=== PATIENT | female | born 1930 | race Caucasian/White ===

== ENCOUNTER 2016-10-23 23:32 | Inpatient (IN) | payer MEDICARE, OTHER ==
[~2016-10-23] VITALS: Ht 162.6 cm; Wt 80.2 kg
[~2016-10-23 23:32] MED LIST: BENICAR40 MG PO; CRESTOR20 MG PO; DOXYCYCLINE HY100 M2 PO; IPRAT-ALBUT 0.5-3 ML UPD; LANOXIN125 MCG PO; LUTEIN20 MG PO; MIRAPEX0.5 MG PO; MUCINEX DM ER1 EAC1 PO; NITROSTAT0.4 MG SL; NORVASC5 MG PO; PATIENT'S OWN MEDICATION PO; PINDOLOL5 MG PO; POTASSIUM CHLO10 ME1 PO; PROMETHAZINE W473 M1 PO; PROTONIX40 MG PO; RESTORIL15 MG PO; SYNTHROID150 MCG PO; TESSALON PERLE100 MG PO; TIKOSYN250 MCG PO; VANCOMYCIN 1 GM/1 G1 IV; XARELTO15 MG PO; ZOSYN 3.3753.375 G1 IV
[2016-10-24 01:40] LABS: BASOPHILS 0.1 % (0.0-2.0); EOSINOPHILS 0.6 % (0-7); HEMATOCRIT 44.9 % (36.0-48.0); HEMOGLOBIN 14.6 g/dL (12-16); IMMATURE GRANULOCYTES 0.4 % (0-5); LYMPHOCYTES 13.2 % (15-50); MCH 30.7 pg (26.0-34.0); MCHC 32.5 g/dL (31.0-37.0); MCV 94.3 fL (80.0-100.0); MEAN PLATELET VOLUME 11.7 fL (7.4-10.4); MONOCYTES 10.4 % (2-11); NEUTROPHILS 75.3 % (40-80); PLATELET COUNT 180 10x3/uL (130-400); RBC 4.76 10x6/uL (4.00-5.40); RDW 13.4 % (11.5-14.5); WBC 7.7 10x3/uL (4.8-10.8)
[2016-10-24 01:52] LABS: APPEARANCE CLEAR (CLEAR); BILIRUBIN NEGATIVE (NEGATIVE); COLOR YELLOW (YELLOW); GLUCOSE NEGATIVE (NEGATIVE); KETONE NEGATIVE (NEGATIVE); LEUKOCYTE ESTERASE NEGATIVE (NEGATIVE); NITRITE NEGATIVE (NEGATIVE); PROTEIN TRACE mg/dL (NEGATIVE); UROBILINOGEN NORMAL (NORMAL)
[2016-10-24 01:58] LABS: ALBUMIN 3.7 g/dL (3.4-5.0); ANION GAP 11.6 mmol/L (8-16); BILIRUBIN - TOTAL 0.34 mg/dL (0.2-1.3); CALCIUM 9.5 mg/dL (8.5-10.1); CARBON DIOXIDE 28.6 mmol/L (21.0-32.0); CREATININE - SERUM 1.1 mg/dL (0.6-1.3); POTASSIUM - SERUM 4.2 mmol/L (3.5-5.1); PROTEIN - SERUM 7.3 g/dL (6.4-8.2); THYROID STIMULATING HORMONE 0.33 uIU/mL (0.36-3.74)
[2016-10-24 02:00] LABS: BACTERIA FEW /hpf (NONE SEEN); EPITHELIAL CELLS OCC /hpf (0-5); MUCUS <1+ /lpf (NONE SEEN); RED CELLS - URINE OCC /hpf (0-5); WHITE CELLS - URINE 0-5 /hpf (0-5)
[2016-10-24 02:01] LABS: AMORPHOUS SEDIMENT <1+ /lpf (NONE SEEN); HYALINE CAST OCC /lpf (NONE SEEN)
[2016-10-24 04:09] VITALS: BP 186/58; BMI 31.8
[2016-10-24 04:15] VITALS: BP 156/58
[2016-10-24 08:11] VITALS: BP 147/52
[2016-10-24 10:47] VITALS: Ht 162.6 cm; Wt 80.2 kg
[2016-10-24 11:58] VITALS: BP 165/56
--- NOTE | 2016-10-24 14:04 | NUR ---
ALERT AND ORIENTED X4. ASSIST TO BEDSIDE COMMODE AND BACK TO BED. GAIT UNSTEADY. CARDIZEM INFUSING LT FA @ 10ML/HR ORDERED. SITE SECOND IV 22G RT FA FOR ANTIBIOTIC INFUSIONS. 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 CURRENTLY SINUS RHYTHM 68bpm ON TELEMETRY. HEART RHYTHM IN AND OUT OF SINUS AND A-FLUTTER. CONTINUE PLAN OF CARE. BED LOCKED AND LOW. CALL LIGHT IN REACH. TWO SIDERAILS UP. RECIEVES XARELTO. NO SCDs.
[2016-10-24 15:55] VITALS: BP 142/51
--- NOTE | 2016-10-24 18:56 | NUR ---
RESTING IN BED. ALERT AND ORIENTED X4. DOUGLAS. 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 SINUS RHYTHM 87bpm ON TELEMETRY. DENIES PAIN. O2 @ 2L NC. PREPARE SHIFT CHANGE REPORT. CONTINUE PLAN OF CARE AND SAFETY PRECAUTIONS.
--- NOTE | 2016-10-24 19:30 | NUR ---
LYING ON RT SIDE IN BED, AWAKE, ALERT, HEARING AIDS OUT AND CHARGING ON TSABLE. TELEMETRY IN PLACE SHOWING HR SR. HOB UP SR UP X2, C/L IN REACH, UP WITH MIN ASSIST. LANA WELL. RESP UNLAB, O2 @ 3L VIA NC. CARDIZEM GTT INFUSING W/O DIFF VIA PUMP AT 10CC/HR TO LEFT FA W/O R/S NOTED AT SITE. RT FA IV SITE W/O R/S NOTED. INCONT OF URINE AT TIMES, MICHELLE CARE AND LINEN CHANGE DONE PRN. CONTINUE TO MONITOR.
[2016-10-24 20:29] VITALS: BP 155/49
[2016-10-25 01:50] VITALS: BP 155/49
--- NOTE | 2016-10-25 03:47 | NUR ---
AWAKE, ALERT, DENIES NEEDS AT THIS TIME. HOB UP SR UP X2, C/L IN REACH, CONTINUE TO MONITOR. BOX ALARM REMAINS ON FOR SAFETY.
[2016-10-25 05:24] LABS: BASOPHILS 0.2 % (0.0-2.0); EOSINOPHILS 1.1 % (0-7); HEMATOCRIT 43.1 % (36.0-48.0); HEMOGLOBIN 13.4 g/dL (12-16); IMMATURE GRANULOCYTES 0.2 % (0-5); MCH 30.3 pg (26.0-34.0); MCHC 31.1 g/dL (31.0-37.0); MCV 97.5 fL (80.0-100.0); MEAN PLATELET VOLUME 11.6 fL (7.4-10.4); MONOCYTES 16.8 % (2-11); NEUTROPHILS 54.7 % (40-80); RBC 4.42 10x6/uL (4.00-5.40); RDW 13.5 % (11.5-14.5); WBC 4.5 10x3/uL (4.8-10.8)
[2016-10-25 05:35] LABS: PLATELET COUNT 137 10x3/uL (130-400)
[2016-10-25 05:40] VITALS: BP 152/76
[2016-10-25 05:54] LABS: ALBUMIN 2.9 g/dL (3.4-5.0); ANION GAP 10.4 mmol/L (8-16); BILIRUBIN - TOTAL 0.26 mg/dL (0.2-1.3); CALCIUM 8.8 mg/dL (8.5-10.1); CARBON DIOXIDE 26.8 mmol/L (21.0-32.0); CREATININE - SERUM 1.1 mg/dL (0.6-1.3); MAGNESIUM - SERUM 2.6 mg/dL (1.8-2.4); PHOSPHOROUS 3.7 mg/dL (2.5-4.9); POTASSIUM - SERUM 4.2 mmol/L (3.5-5.1); PROTEIN - SERUM 6.2 g/dL (6.4-8.2); T4 THYROXIN - FREE 1.29 ng/dL (0.76-1.46); THYROID STIMULATING HORMONE 0.21 uIU/mL (0.36-3.74)
[2016-10-25 07:47] VITALS: BP 150/42
[2016-10-25 11:45] VITALS: BP 141/46
--- NOTE | 2016-10-25 14:50 | NUR ---
PT ASSESSMENT COMPLETED PT LAYING ON BED ORDER RECIVED TO DC CARDIZEM DRIP AND PT READING CAFIB ON TELEMETRY NO DISTRESS OBSERVED CALL LIGHT IN REACHS RX2 BED LOW AND LOCKED PT DAUGHTER HAS ONE IMPLANT WITH HER AND ANOTHER INPLANT WAS AT PT BEDSIDE UNABLE TO BE FOUND PT AND PT DAUGHTER INFORMED AND VERBALIZED UNDERSTANDING
[2016-10-25 15:47] VITALS: BP 152/81
--- NOTE | 2016-10-25 17:15 | NUR ---
HEARING AIDE DEVICE FOUND BY PT FAMILY GARRICK DAUGHTER
--- NOTE | 2016-10-25 19:00 | NUR ---
RECEIVED REPORT AND ASSUMED PT CARE AT THIS TIME. ASSISTED UP TO BR WITH 1 PERSON ASSIST. PT GAIT UNSTEADY. USES BSC, HAS LARGE LOOSE STOOL AND URINATES. BACK TO BED. BOX ALARM PLACED ON PT FOR SAFETY. 02 3LPM NC, DENIES ANY SOB/DYSPNEA. LEFT WRIST SL'ED. RT WRIST WITH NS @ KVO. NO NEEDS VOICED. CALL LIGHT WITHIN REACH. WILL CONT TO MONITOR.
[2016-10-25 20:00] VITALS: BP 158/54
--- NOTE | 2016-10-25 20:30 | NUR ---
INITIAL ASSESSMENT COMPLETED, VSS, AFEBRILE. NO NEEDS VOICED. CALL LIGHT WITHIN PLACE. WILL MONITOR.
--- NOTE | 2016-10-25 22:15 | NUR ---
PT RESTING WELL WITHOUT C/O NOTED.
[2016-10-26] VITALS: BP 131/39
--- NOTE | 2016-10-26 00:30 | NUR ---
ASSESSMENT UNCHANGED. NO NEEDS VOICED. WILL MONITOR.
[2016-10-26 04:00] VITALS: BP 132/66
[2016-10-26 05:10] LABS: BASOPHILS 0.2 % (0.0-2.0); EOSINOPHILS 1.7 % (0-7); HEMATOCRIT 43.1 % (36.0-48.0); IMMATURE GRANULOCYTES 0.2 % (0-5); MCH 30.8 pg (26.0-34.0); MCHC 32.5 g/dL (31.0-37.0); MEAN PLATELET VOLUME 11.6 fL (7.4-10.4); NEUTROPHILS 49.9 % (40-80); PLATELET COUNT 131 10x3/uL (130-400); RBC 4.55 10x6/uL (4.00-5.40); RDW 13.3 % (11.5-14.5); WBC 4.1 10x3/uL (4.8-10.8)
[2016-10-26 05:11] LABS: MCV 94.7 fL (80.0-100.0)
--- NOTE | 2016-10-26 05:13 | NUR ---
PT RESTING WELL WITHOUT C/O OR DISTRESS NOTED.
[2016-10-26 05:39] LABS: ALBUMIN 3.2 g/dL (3.4-5.0); ANION GAP 11.1 mmol/L (8-16); BILIRUBIN - TOTAL 0.17 mg/dL (0.2-1.3); CALCIUM 8.8 mg/dL (8.5-10.1); CARBON DIOXIDE 29.1 mmol/L (21.0-32.0); CREATININE - SERUM 0.9 mg/dL (0.6-1.3); PHOSPHOROUS 3.9 mg/dL (2.5-4.9); POTASSIUM - SERUM 4.2 mmol/L (3.5-5.1); PROTEIN - SERUM 6.1 g/dL (6.4-8.2)
[2016-10-26 05:41] LABS: MAGNESIUM - SERUM 1.9 mg/dL (1.8-2.4)
[2016-10-26 07:00] VITALS: BP 146/53
[2016-10-26 12:02] VITALS: BP 111/65
--- NOTE | 2016-10-26 14:54 | NUR ---
PT LAYING IN BED NO DISTRESS OBSERVED DAUGHTER ARRIVED TO VISIT WITH PT AND DAUGHTER INFORMED OF ISOLATION PERCAUTIONS DUE TO FLU TEST COMMING BACK POSITIVE PT PLACED ON DROPLET ISOLATION BED LOW AND LOCKED CALL LIGHT IN REACH SRX2 WILL MONITOR RESPERATIONS EVEN AND UNLABORED WILL MONITOR
--- NOTE | 2016-10-26 15:08 | NUR ---
Patient Name: RUSS NOGUEIRA Admission Status: ER Accout number: [id number] Admission Date: 10-24-2016 : 1930 Admission Diagnosis: Attending: BARRETT Current LOS: 2 Anticipated DC Date: Planned Disposition: Home with Home Health Primary Insurance: MEDICARE A & B PLANNED EXTERNAL PROVIDER: TO BE DECIDED BY PT/FAMILY Discharge Planning Comments: * Is the patient Alert and Oriented? Yes 0 * How many steps to enter\exit or inside your home? 3 NO RAIL 0 * PCP DAR. GUZMÁN 0 * Pharmacy [facility] 0 * Preadmission Environment Home Alone 0 * ADLs Partial Dependent 0 * Partial ADLs (Assistance needed) Medication Management 0 * Equipment Bedside Commode Cane Nebulizer Oxygen Shower Chair Walker 0 * Other Equipment UNKNOWN MEDICAL EQUIPMENT PROVIDER 0 * List name and contact numbers for known caregivers / representatives who currently or will assist patient after discharge: HAROON ABRAHAM, DTR, 0 * Community resources currently utilized None 0 * Please name any agencies selected above. NONE 0 * Additional services required to return to the preadmission environment? No 0 * Can the patient safely return to the preadmission environment? Yes 0 * Has this patient been hospitalized within the prior 30 days at any hospital? No 0 CM MET WITH PT IN ROOM TO DISCUSS DISCHARGE PLANNING AND NEEDS. PT REPORTS LIVING AT HOME INDEPENDENTLY WITH ASSISTANCE OF HER ADULT DAUGHTERS WHO ASSIST WITH ANY NEEDS AND MEDICATION MANAGEMENT. PT REPORTS HAVING ALL NEEDED MEDICAL EQUIPMENT AT HOME AND NO OUTSIDE SERVICES ASSISTING IN THE HOME. CM DISCUSSED AVAILABILITY OF HOME HEALTH, REHAB SERVICES AND MEDICAL EQUIPMENT. PT REPORTS SHE HAD HOME HEALTH WITH [facility] IN THE PAST AND FEELS SHE MAY NEED HOME HEALTH FOR DISCHARGE HOME AGAIN, REPORTS HER DAUGHTER WILL PICK HER UP FOR DISCHARGE HOME. CM LEFT CHOICE FORM WITH HOME HEALTH INFORMATION FOR PT AND FAMILY CONSIDERATION OF HOME HEALTH SERVICES. CM LEFT CM CONTACT INFORMATION IN ROOM FOR FAMILY. PT PLANS TO DISCHARGE HOME, WOULD LIKE HOME HEALTH AT DISCHARGE. CM TO ARRANGE HOME HEALTH IF PHYSICIAN AGREES AND PROVIDES ORDER WELL PT/FAMILY CHOICE OF PROVIDER. Machine Lead Burner: Siva Linton
[2016-10-26 15:27] VITALS: BP 126/54
[2016-10-26 20:00] VITALS: BP 132/51
[2016-10-27] VITALS: BP 121/49
--- NOTE | 2016-10-27 02:21 | NUR ---
RECIEVED PATIENT AND REPORT , PATIENT ALERT AND ORIENTED, NO ACUTE DISTRESS NOTED, ASSESSMENT DONE, SEE FLOW SHEET, CALL LIGHT AND WATER IN REACH, SIDERAILS UP X 2, BED LOCKED, WILL CONTINUE TO MONITOR.
[2016-10-27 04:00] VITALS: BP 148/50
[2016-10-27 04:48] LABS: BASOPHILS 0.4 % (0.0-2.0); EOSINOPHILS 0 % (0-7); HEMATOCRIT 45.1 % (36.0-48.0); HEMOGLOBIN 14.9 g/dL (12-16); IMMATURE GRANULOCYTES 0.4 % (0-5); LYMPHOCYTES 19.1 % (15-50); MCH 30.7 pg (26.0-34.0); MEAN PLATELET VOLUME 11.5 fL (7.4-10.4); NEUTROPHILS 76.1 % (40-80); PLATELET COUNT 147 10x3/uL (130-400); RBC 4.85 10x6/uL (4.00-5.40); RDW 12.8 % (11.5-14.5)
[2016-10-27 04:53] LABS: WBC 2.8 10x3/uL (4.8-10.8)
[2016-10-27 05:04] LABS: ALBUMIN 3.2 g/dL (3.4-5.0); ANION GAP 11.3 mmol/L (8-16); BILIRUBIN - TOTAL 0.25 mg/dL (0.2-1.3); CALCIUM 9.4 mg/dL (8.5-10.1); CARBON DIOXIDE 28.2 mmol/L (21.0-32.0); MAGNESIUM - SERUM 2.1 mg/dL (1.8-2.4); PHOSPHOROUS 4.2 mg/dL (2.5-4.9); POTASSIUM - SERUM 4.5 mmol/L (3.5-5.1)
[2016-10-27 09:09] VITALS: BP 130/49
--- NOTE | 2016-10-27 10:29 | NUR ---
Nutrition follow-up: Pt is now in isolation for +flu A and C.Diff Diet: low sodium with very poor po intake at this time. Labs reviewed Wt: 178# RDN will change diet to regular as tolerated and add Ensure with meals to encourage increased po intake. RDN following.
--- NOTE | 2016-10-27 11:36 | NUR ---
PT UP WITH PHYSICAL THERAPY AND AMBULATED APPX 100FT WITH MINIMAL ASSISTANCE PT BACK IN ROOM AND LAYING IN BED PT ON DROPLET ISO FOR FLU AND PPE FOLLOWED. RESPERATIONS EVEN AND UNLABORED WITH NO DISTRESSCALL LIGHT IN REACH SRX2 BED LOW AND LOCKED WILL MONITOR
[2016-10-27 12:38] VITALS: BP 141/49
--- NOTE | 2016-10-27 12:59 | NUR ---
PT LAYING IN BED NO DISTRESS OBSERVED CALL LIGHT IN REACH SRX2 BED LOW AND LOCKED NO DISTRESS OBSERVED RESPERATIONS EVEN AND UNLABORED IVP SALINE LOCKED WILL MONITOR
[2016-10-27 15:45] VITALS: BP 144/55
[2016-10-27 20:30] VITALS: BP 152/68
[2016-10-28] VITALS: BP 124/58
--- NOTE | 2016-10-28 01:27 | NUR ---
PT LYING IN BED, EYES CLOSED, EASILY ROUSABLE TO GENTLE TOUCH TO HER RIGHT ARM. PT DENIES ANY ACUTE NEEDS. CONTINUE TO MONITOR CLOSELY. BED LOW, CALL LIGHT IN REACH, SIDE RAILS X 2, HOB 20 DEGREES.
--- NOTE | 2016-10-28 05:44 | NUR ---
PT UP TO BEDSIDE COMMODE, AND PULLED HER IV OUT OF HER RIGHT FOREARM. PT DOES HAVE AN IV IN HER LEFT FOREARM AT THIS TIME. WILL WATCH THAT ONE CAUTIOUSLY. 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 I HAVE EXPLAINED THAT SHE MUST CALL FOR ASSISTANCE, HOWEVER PT REFUSES TO DO SO, STATING THAT SHE IS ABLE TO DO IT ON HER OWN AND DOES NOT WANT TO CALL FOR HELP. I INSISTED THAT SHE DOES. PT DENIES ANY NEEDS AT THIS TIME. CONTINUE TO MONITOR CLOSELY. BED LOW, CALL LIGHT IN REACH, SIDE RAILS X 2, HOB 10 DEGREES.
[2016-10-28 06:29] VITALS: BP 138/46
--- NOTE | 2016-10-28 07:30 | NUR ---
LAYING IN BED WAITING ON BREAKFAST. IS NOT WEARING HEARING AID. IS DEAF WITH OUT IT. SHOEMAKER X4.
[2016-10-28 08:32] VITALS: BP 148/69
--- NOTE | 2016-10-28 12:12 | NUR ---
SITTING UP IN BED EATING LUNCH. DENIES NEEDS OR PAIN. HAS NON PRODUCTIVE COUGH. ON RA. USES BSC IN ROOM. ENCOURAGED PT TO USE CALL LIGHT AND CALL FOR HELP.
[2016-10-28 12:43] VITALS: BP 167/56
[2016-10-28 16:18] VITALS: BP 149/51
--- NOTE | 2016-10-28 16:45 | NUR ---
SLIGHT CONFUSION NOTED. REMAINS PLEASANT AND COOPERATIVE.
[2016-10-28 20:15] VITALS: BP 145/49
--- NOTE | 2016-10-28 22:16 | NUR ---
PT AWAKE, ALERT, ORIENTED, DENIES ANY NEEDS. CONTINUE TO MONITOR CLOSELY. BED LOW, CALL LIGHT IN REACH, SIDE RAILS X 2, HOB 10 DEGREES.
[2016-10-29 00:34] VITALS: BP 172/59
[2016-10-29 04:26] VITALS: BP 174/62
--- NOTE | 2016-10-29 05:08 | NUR ---
PT LYING IN BED, EYES CLOSED, RESPIRATIONS EVEN AND UNLABORED. PT UP TO BEDSIDE COMMODE THIS SHIFT. PT EASILY ROUSABLE TO VERBAL STIMULI. CONTINUE TO MONITOR CLOSELY. BED LOW, CALL LIGHT IN REACH, SIDE RAILS X 2, HOB FLAT.
[2016-10-29 06:55] LABS: BASOPHILS 0.4 % (0.0-2.0); EOSINOPHILS 0 % (0-7); HEMATOCRIT 44.2 % (36.0-48.0); HEMOGLOBIN 14.3 g/dL (12-16); IMMATURE GRANULOCYTES 0.5 % (0-5); LYMPHOCYTES 15.8 % (15-50); MCH 30.4 pg (26.0-34.0); MCHC 32.4 g/dL (31.0-37.0); MCV 93.8 fL (80.0-100.0); MEAN PLATELET VOLUME 11.9 fL (7.4-10.4); MONOCYTES 4.8 % (2-11); NEUTROPHILS 78.5 % (40-80); PLATELET COUNT 156 10x3/uL (130-400); RBC 4.71 10x6/uL (4.00-5.40); RDW 13.1 % (11.5-14.5); WBC 8.2 10x3/uL (4.8-10.8)
[2016-10-29 07:03] LABS: ANION GAP 12.8 mmol/L (8-16); CALCIUM 9.5 mg/dL (8.5-10.1); POTASSIUM - SERUM 4.8 mmol/L (3.5-5.1)
--- NOTE | 2016-10-29 07:26 | NUR ---
AM ROUNDING MADE, PATIENT APPEARS TO BE SLEEPING, RESP ARE EVEN AND NON LABORED. ON HEART MONITOR SHOWING SB, HR 56. ON 2L PER NC. IN DROPLET ISOLATION. WILL CONTINUE TO MONITOR.
[2016-10-29 08:33] VITALS: BP 189/70
[2016-10-29 12:26] VITALS: BP 171/71
--- NOTE | 2016-10-29 13:23 | NUR ---
1317-DRESSING TO RIGHT CALF CHANGED. WOUND IS STAGE 2 WITH MEASUREMENTS OF 4 CM X1 XCM X 0.4 CM. WOUND BED IS DRY, WITH YELLOW FAT GLOBS. NO S/S OF INFECTION. DRY 2 X 2 AND WHITE MEPILEX PLACED OVER IT. DATED.
[2016-10-29 15:46] VITALS: BP 175/62
--- NOTE | 2016-10-29 17:41 | NUR ---
DENIES NEEDS AT PRESENT TIME. AMBULATING INTO RESTROOM. WILL COTNINUE TO MONITOR.
[2016-10-29 20:00] VITALS: BP 182/62
--- NOTE | 2016-10-30 01:48 | NUR ---
NURSE ROUNDS 22:00 - PT AWAKE, ALERT, ORIENTED, ASKED ME TO PLACE HER COCHLEAR IMPLANT ON HER BEDSIDE TABLE. I PLACED THE BATTERY IN HER SHIRRING TENDER. PT DENIED ANY NEEDS, IN NO ACUTE DISTRESS. CONTINUE TO MONITOR CLOSELY. BED LOW, CALL LIGHT IN REACH, SIDE RAILS X 2, HOB FLAT.
[2016-10-30 03:49] VITALS: BP 176/67
--- NOTE | 2016-10-30 05:23 | NUR ---
PT LYING IN BED, EYES CLOSED, RESPIRATIONS EVEN AND UNLABORED. PT EASILY ROUSABLE TO VERBAL STIMULI. CONTINUE TO MONITOR CLOSELY.
[2016-10-30 05:29] LABS: ANION GAP 9.9 mmol/L (8-16); CARBON DIOXIDE 30.8 mmol/L (21.0-32.0); POTASSIUM - SERUM 4.7 mmol/L (3.5-5.1)
[2016-10-30 05:31] LABS: BASOPHILS 0.1 % (0.0-2.0); EOSINOPHILS 0 % (0-7); HEMATOCRIT 45.1 % (36.0-48.0); HEMOGLOBIN 14.5 g/dL (12-16); IMMATURE GRANULOCYTES 0.5 % (0-5); LYMPHOCYTES 15.7 % (15-50); MCH 30.3 pg (26.0-34.0); MCHC 32.2 g/dL (31.0-37.0); MCV 94.4 fL (80.0-100.0); MEAN PLATELET VOLUME 12.2 fL (7.4-10.4); MONOCYTES 5.7 % (2-11); PLATELET COUNT 170 10x3/uL (130-400); RBC 4.78 10x6/uL (4.00-5.40); RDW 13.1 % (11.5-14.5); WBC 8.5 10x3/uL (4.8-10.8)
[2016-10-30] MEDS ORDERED: XARELTO15 MG PO (06:55)
[2016-10-30] MEDS ORDERED: ZOLOFT50 MG PO (06:55)
[2016-10-30] MEDS ORDERED: HCTZ25 MG PO (06:56)
[2016-10-30] MEDS ORDERED: STERAPRED DS 1010 MG PO (06:56)
--- NOTE | 2016-10-30 07:24 | NUR ---
PT ASSESSMENT COMPLETED NO DISTRESS OBSERVED PT TO BE DISCHARGED HOME TODAY PER DR GUZMÁN. RESPERATIONS EVEN AND UNLABORED CALL LIGHT IN REACH SRX2 BED LOW AND LOCKED WILL MONITOR
[2016-10-30 08:25] VITALS: BP 149/40
--- NOTE | 2016-10-30 10:21 | NUR ---
Patient Name: RUSS NOGUEIRA Encounter No: [id number] : 1930 Primary Insurance: MEDICARE A & B Anticipated DC Date: 10-30-2016 Planned Disposition: Home with Home Health External Planned Provider: [facility] DCP follow-up note: CM RECEIVED DISCHARGE AND HOME HEALTH ORDER. CM MET WITH PT IN ROOM TO DISCUSS DISCHARGE NEEDS AND PLANNING. CM DISCUSSED AVAILABILITY OF HOME HEALTH, REHAB SERVICES AND MEDICAL EQUIPMENT. PT REPORTS SHE IS GOING HOME WITH HOME HEALTH TODAY. DAUGHTER TO TRANSPORT HOME AT DISCHARGE TODAY. IMPORTANT MESSAGE FROM MEDICARE PROVIDED AND EXPLAINED. PT CHOSE [facility] SHE HAS USED THEM IN THE PAST WITH GOOD RESULT. CM CALLED [facility], , PROVIDED REFERRAL TO [facility] WHO WILL SCHEDULE HOME [facility]ATLH FOLLOW UP AND ADMISSION. CM FAXED REFERRAL TO [facility] AT [phone]. PT NOTIFIED WHO DENIED FURTHER DISCHARGE NEEDS. Siva Linton, CASE MANAGEMENT
[2016-10-30 11:37] VITALS: BP 180/63
--- NOTE | 2016-10-30 12:05 | NUR ---
STUDENT DC'D IVP AND ASSITED PT IN DRESSING AND PROVIED WHEELCHAIR AND ESCORTED PT OFF UNIT TO [facility]
== END 2016-10-30 12:05 | disposition home health service (06) | DRG 194 ==
LOC: D.ER 23:32 → D.M2 10-24 00:33
PROVIDERS: Family Medicine; Nurse Practitioner Acute Care; ADMIT Family Medicine
DX: J10.1 Influenza due to other identified influenza virus with other respiratory manifestations (principal); I48.92 Unspecified atrial flutter; E03.9 Hypothyroidism, unspecified; I10 Essential (primary) hypertension; J44.9 Chronic obstructive pulmonary disease, unspecified; I48.2 Chronic atrial fibrillation; Z87.891 Personal history of nicotine dependence

== ENCOUNTER 2016-11-16 12:07 | Emergency (ER) | payer MEDICARE, OTHER ==
[2016-10-24 10:47] VITALS: BMI 31.7
[~2016-11-16 12:07] MED LIST changes: +HCTZ25 MG PO; +STERAPRED DS 1010 MG PO; +ZOLOFT50 MG PO
[2016-11-16 14:05] LABS: BASOPHILS 0.2 % (0.0-2.0); EOSINOPHILS 4.1 % (0-7); HEMATOCRIT 44.2 % (36.0-48.0); HEMOGLOBIN 13.8 g/dL (12-16); IMMATURE GRANULOCYTES 0.2 % (0-5); LYMPHOCYTES 25.2 % (15-50); MCH 30.2 pg (26.0-34.0); MCHC 31.2 g/dL (31.0-37.0); MCV 96.7 fL (80.0-100.0); MEAN PLATELET VOLUME 10.7 fL (7.4-10.4); MONOCYTES 7.8 % (2-11); NEUTROPHILS 62.5 % (40-80); RBC 4.57 10x6/uL (4.00-5.40); RDW 14.4 % (11.5-14.5); WBC 5.1 10x3/uL (4.8-10.8)
[2016-11-16 14:08] LABS: PLATELET COUNT 109 10x3/uL (130-400)
[2016-11-16 14:17] LABS: APTT 30.2 SECONDS (22.8-39.4); INR 1.14 (0.85-1.17); PROTIME 14.5 SECONDS (11.6-15.0)
[2016-11-16 14:30] LABS: ALBUMIN 3.3 g/dL (3.4-5.0); BILIRUBIN - TOTAL 0.48 mg/dL (0.2-1.3); CALCIUM 8.9 mg/dL (8.5-10.1); CARBON DIOXIDE 23.7 mmol/L (21.0-32.0); POTASSIUM - SERUM 4.7 mmol/L (3.5-5.1); PROTEIN - SERUM 6.1 g/dL (6.4-8.2)
== END 2016-11-16 16:19 | disposition home or self-care (01) ==
LOC: D.ER 12:07
PROVIDERS: Family Medicine
DX: S80.02XA Contusion of left knee, initial encounter (principal); W19.XXXA Unspecified fall, initial encounter; Y93.89 Activity, other specified; Y92.89 Other specified places as the place of occurrence of the external cause; S50.12XA Contusion of left forearm, initial encounter; M54.5 Low back pain; M54.6 Pain in thoracic spine; S22.039A Unspecified fracture of third thoracic vertebra, initial encounter for closed fracture; I25.10 Atherosclerotic heart disease of native coronary artery without angina pectoris; I10 Essential (primary) hypertension

== ENCOUNTER 2017-06-23 14:06 | Inpatient (IN) | payer MEDICARE, OTHER ==
[~2017-06-23] VITALS: Ht 162.6 cm; Wt 79.4 kg
[2017-06-23 16:48] LABS: BASOPHILS 0.2 % (0-2); EOSINOPHILS 0.6 % (0-7); HEMATOCRIT 40.7 % (36.0-48.0); HEMOGLOBIN 13.5 g/dL (12-16); IMMATURE GRANULOCYTES 0.7 % (0-5); LYMPHOCYTES 11.6 % (15-50); MCH 31.1 pg (26.0-34.0); MCHC 33.2 g/dL (31.0-37.0); MCV 93.8 fL (80.0-100.0); MEAN PLATELET VOLUME 10.9 fL (7.4-10.4); MONOCYTES 8.7 % (2-11); NEUTROPHILS 78.2 % (40-80); RBC 4.34 10x6/uL (4.00-5.40); RDW 14.4 % (11.5-14.5); WBC 12.6 10x3/uL (4.8-10.8)
[2017-06-23 16:50] LABS: PLATELET COUNT 240 10x3/uL (130-400)
[2017-06-23 17:04] LABS: ALBUMIN 3.2 g/dL (3.4-5.0); ANION GAP 17.6 mmol/L (8-16); BILIRUBIN - TOTAL 0.23 mg/dL (0.2-1.3); CALCIUM 9.8 mg/dL (8.5-10.1); CARBON DIOXIDE 23.7 mmol/L (21.0-32.0); CREATININE - SERUM 3.3 mg/dL (0.6-1.3); POTASSIUM - SERUM 4.3 mmol/L (3.5-5.1); PROTEIN - SERUM 7.5 g/dL (6.4-8.2)
--- NOTE | 2017-06-23 19:06 | NUR ---
REC'D PT FROM ER. NO VISIBLE SIGNS OF DISTRESS. DAUGHTER AT BEDSIDE. BED IN LOWEST POSITION AND CALL LIGHT WITHIN REACH.
--- NOTE | 2017-06-23 19:49 | NUR ---
PATIENT RESTING IN BED WITH DAUGHTER AT BEDSIDE AND NO VISIBLE SIGNS OF DISTRESS. BROUGHT PT WATER PER REQUEST. PATIENT DENIES OTHER NEEDS AT THIS TIME. BED IN LOWEST POSITION AND CALL LIGHT WITHIN REACH. ENCOURAGED THE PT TO CALL IF SHE HAS NEEDS.
--- NOTE | 2017-06-23 20:06 | NUR ---
PT REQUESTED BE CONTACTED IN REGARDS TO PT'S MIRAPEX AND RESTORIL. PT DOES NOT KNOW THE NAMES AND DOSES OF HER OTHER MEDS AND STATED HER "OTHER DAUGHTER WILL BRING THEM IN THE MORNING"
--- NOTE | 2017-06-23 20:16 | NUR ---
SPOKE WITH DR. MURILLO IN REGARDS TO PT'S MEDS. DR. MURILLO SAID TO GO AHEAD WITH THE MIRAPEX AND RESTORIL. DR. MURILLO ALSO STATED TO MAKE SURE DR. RHODES IS CONTACTED IN THE AM IF HE WAS NOT CONTACTED BY SANDRA CARVALHO.
[2017-06-24] VITALS: BP 103/41; BP 109/51
[2017-06-24 01:59] VITALS: BP 107/44; BMI 30.1
[2017-06-24 07:07] LABS: BASOPHILS 0.2 % (0-2); EOSINOPHILS 2.2 % (0-7); HEMATOCRIT 37.4 % (36.0-48.0); HEMOGLOBIN 12.5 g/dL (12-16); LYMPHOCYTES 18.8 % (15-50); MCH 31.1 pg (26.0-34.0); MCHC 33.4 g/dL (31.0-37.0); MEAN PLATELET VOLUME 10.9 fL (7.4-10.4); MONOCYTES 10.7 % (2-11); NEUTROPHILS 67.1 % (40-80); PLATELET COUNT 218 10x3/uL (130-400); RBC 4.02 10x6/uL (4.00-5.40); RDW 14.5 % (11.5-14.5); WBC 9.2 10x3/uL (4.8-10.8)
[2017-06-24 07:42] LABS: ANION GAP 17.7 mmol/L (8-16); CALCIUM 9.5 mg/dL (8.5-10.1); POTASSIUM - SERUM 4.7 mmol/L (3.5-5.1)
--- NOTE | 2017-06-24 07:50 | NUR ---
AM ROUNDS - PT IS IN BED AND AWAKE AT THIS TIME. YELLOW BAND ON. 2L O2 VIA NC. LEFT FA, NS AT 100CC/HR. PT HASCOCHLEAR IMPLANTS TO BOTH EARS. PT IS UP WITH ASSIST. BED AT LOWEST POSITION. CALL BRITO IN USE/REACH. SIDE RAILS UP X2. NO NEEDS AT THIS TIME. WILL CONTINUE TO MONITOR.
[2017-06-24 09:02] VITALS: BP 129/30
--- NOTE | 2017-06-24 11:39 | NUR ---
PT IN BED AND APPEARS TO BE SLEEPING WITH EQUAL AND NON LABORED BREATHING. WILL CONTINUE TO MONIOTR
[2017-06-24 12:19] VITALS: BP 107/30
[2017-06-24 16:42] VITALS: BP 110/64
--- NOTE | 2017-06-24 19:45 | NUR ---
PT RESTING IN BED WITH ISIAH TEJADA AT BEDSIDE. BED IN LOWEST POSITION, CALL LIGHT WITHIN REACH, AND BED ALARM ON. ENCOURAGED THE PT TO CALL IF SHE HAS NEEDS.
[2017-06-24 20:00] VITALS: BP 108/28
[2017-06-24 21:31] LABS: APPEARANCE HAZY (CLEAR); BILIRUBIN NEGATIVE (NEGATIVE); COLOR YELLOW (YELLOW); GLUCOSE NEGATIVE (NEGATIVE); KETONE NEGATIVE (NEGATIVE); NITRITE NEGATIVE (NEGATIVE); PROTEIN NEGATIVE (NEGATIVE); UROBILINOGEN NORMAL (NORMAL)
--- NOTE | 2017-06-24 23:30 | NUR ---
NOTIFIED BY ISIAH LAM THAT THE PT "FEELS LIKE HER LEG IS WET". UPON ENTERING THE ROOM THE PATIENT'S SHEETS AND BLANKETS WERE SOILED. THE PT HAS APROX 2CM X 2CM OPENING ON THE TOP OF HER LEFT KNEE WITH A MODERATE AMOUNT OF BLOODY, PURULENT DRAINAGE. I DRESSED THE LEFT KNEE WITH 4X4'S AND AN ABD PAD TO ABSORB THE DRAINAGE. WILL CONTINUE TO MONITOR.
[2017-06-25] VITALS: BP 102/50
[2017-06-25 04:00] VITALS: BP 110/42
[2017-06-25 06:34] LABS: BASOPHILS 0.1 % (0-2); EOSINOPHILS 4.8 % (0-7); HEMATOCRIT 36.7 % (36.0-48.0); HEMOGLOBIN 11.7 g/dL (12-16); IMMATURE GRANULOCYTES 0.8 % (0-5); LYMPHOCYTES 24.1 % (15-50); MCH 30.5 pg (26.0-34.0); MCHC 31.9 g/dL (31.0-37.0); MEAN PLATELET VOLUME 10.5 fL (7.4-10.4); MONOCYTES 10.6 % (2-11); NEUTROPHILS 59.6 % (40-80); PLATELET COUNT 259 10x3/uL (130-400); RBC 3.84 10x6/uL (4.00-5.40); RDW 14.6 % (11.5-14.5); WBC 7.5 10x3/uL (4.8-10.8)
[2017-06-25 06:36] LABS: MCV 95.6 fL (80.0-100.0)
[2017-06-25 06:46] LABS: ALBUMIN 2.7 g/dL (3.4-5.0); ANION GAP 13.8 mmol/L (8-16); BILIRUBIN - TOTAL 0.18 mg/dL (0.2-1.3); CALCIUM 9.4 mg/dL (8.5-10.1); CARBON DIOXIDE 25.3 mmol/L (21.0-32.0); CREATININE - SERUM 2.4 mg/dL (0.6-1.3); POTASSIUM - SERUM 5.1 mmol/L (3.5-5.1); PROTEIN - SERUM 6.6 g/dL (6.4-8.2)
--- NOTE | 2017-06-25 07:40 | NUR ---
PT RESTING IN BED, DR LEIGH IN TO SEE PT. PT DENIES NEEDS AT THIS TIME. ASSESSMENT COMPLETE.
--- NOTE | 2017-06-25 07:48 | NUR ---
PT KNEE REDRESSED WITH 4X4'S AND WRAPPED WITH KERLIX. PT TO BE NPO AFTER MIDNIGHT.
[2017-06-25 08:28] VITALS: BP 137/92
[2017-06-25 09:23] LABS: ERYTHROCYTE SEDIMENTATION RATE 72 mm/hr (0-42)
[2017-06-25 13:18] VITALS: BP 141/32
--- NOTE | 2017-06-25 14:51 | NUR ---
Patient Name: RUSS NOGUEIRA Admission Status: ER Accout number: [id number] Admission Date: 06-23-2017 : 1930 Admission Diagnosis: Attending: Ganga Guzmán Current LOS: 2 Anticipated DC Date: 06-29-2017 Planned Disposition: Home Primary Insurance: MEDICARE A & B Discharge Planning Comments: CM MET WITH PATIENT AND DAUGHTER (HAROON) REGARDING D/C NEEDS AND PLANS. DAUGHTER STATED PATIENT LIVES ALONE AND HAS 4 STEPS W/RAILS TO ENTER HOME AND NO STAIRS INSIDE. PATIENT IS INDEPENDENT WITH HER CARE AND HAS A WALKER, SHOWER CHAIR, CANE, OXYGEN (DOES NOT USE), CPAP (DOES NOT USE) AT HOME. PATIENTS PCP IS DR. GUZMÁN AND PHARMACY IS [facility]. PATIENT IS CURRENT WITH [facility]. DAUGHTER WOULD LIKE HER MOTHER TO GO TO REHAB FOR STRENGTHENING. CM WILL CONTINUE TO FOLLOW PATIENT WITH D/C NEEDS AND PLANS. PCP DR[facility]N [facility] HAROON (DAUGHTER) [phone] Shutdown Planner: Elaine Cohen Is the patient Alert and Oriented? Yes 0 * How many steps to enter\exit or inside your home? 4 W/RAILS 0 * PCP DR. GUZM[facility]N 0 * [facility] * Preadmission Environment Home Alone 0 * ADLs Independent 0 * Equipment Cane CPAP Oxygen Shower Chair Walker 0 * List name and contact numbers for known caregivers / representatives who currently or will assist patient after discharge: HAROON (DAUGHTER) [phone] 0 * Community resources currently utilized Home Health 0 * Please name any agencies selected above. [facility] 0 * Additional services required to return to the preadmission environment? Yes 0 * Can the patient safely return to the preadmission environment? Yes 0 * Has this patient been hospitalized within the prior 30 days at any hospital? No 0 Grand Total: 0
[2017-06-25 15:13] VITALS: Ht 162.6 cm; Wt 79.4 kg
--- NOTE | 2017-06-25 16:10 | NUR ---
PT PULLED OUT IV IN LT FA. NEW 20G IV PLACED IN LEFT HAND. NS RUNNING AT 50MLS.
[2017-06-25 20:00] VITALS: BP 116/37
--- NOTE | 2017-06-25 20:00 | NUR ---
PT RESTING IN BED AND DENIES NEEDS AT THIS TIME. BED IN LOWEST POSITION, CALL LIGHT WITHIN REACH, AND BED ALARM ON. ENCOURAGED THE PT TO CALL IF SHE HAS NEEDS.
[2017-06-26 04:00] VITALS: BP 139/44
[2017-06-26 04:16] LABS: BASOPHILS 0.3 % (0-2); EOSINOPHILS 3.9 % (0-7); HEMATOCRIT 34.9 % (36.0-48.0); HEMOGLOBIN 11.3 g/dL (12-16); LYMPHOCYTES 25.6 % (15-50); MCH 30.9 pg (26.0-34.0); MCHC 32.4 g/dL (31.0-37.0); MCV 95.4 fL (80.0-100.0); MEAN PLATELET VOLUME 10.6 fL (7.4-10.4); NEUTROPHILS 59.2 % (40-80); PLATELET COUNT 228 10x3/uL (130-400); RBC 3.66 10x6/uL (4.00-5.40); RDW 14.4 % (11.5-14.5); WBC 6.7 10x3/uL (4.8-10.8)
[2017-06-26 04:40] LABS: ALBUMIN 2.5 g/dL (3.4-5.0); ANION GAP 13.5 mmol/L (8-16); BILIRUBIN - TOTAL 0.2 mg/dL (0.2-1.3); CALCIUM 9.3 mg/dL (8.5-10.1); CARBON DIOXIDE 23.1 mmol/L (21.0-32.0); CREATININE - SERUM 1.6 mg/dL (0.6-1.3); POTASSIUM - SERUM 4.6 mmol/L (3.5-5.1)
[2017-06-26 09:38] VITALS: BP 140/98
[2017-06-26 13:11] VITALS: BP 136/44
[2017-06-26 16:23] VITALS: BP 135/41
[2017-06-27 04:00] VITALS: BP 153/90
[2017-06-27] MEDS ORDERED: BUMETANIDE0.5 MG PO (05:33)
[2017-06-27] MEDS ORDERED: DYAZIDE 37.5/251 CAP PO (05:37)
[2017-06-27] MEDS ORDERED: LIVALO2 MG PO (05:38)
[2017-06-27] MEDS ORDERED: NEXIUM40 MG PO (05:40)
[2017-06-27 06:35] VITALS: BP 153/90
[2017-06-27 07:01] LABS: BASOPHILS 0.5 % (0-2); HEMOGLOBIN 12.3 g/dL (12-16); IMMATURE GRANULOCYTES 1.5 % (0-5); LYMPHOCYTES 19.6 % (15-50); MCH 30.8 pg (26.0-34.0); MCHC 31.5 g/dL (31.0-37.0); MEAN PLATELET VOLUME 10.3 fL (7.4-10.4); MONOCYTES 10.7 % (2-11); NEUTROPHILS 62.7 % (40-80); PLATELET COUNT 250 10x3/uL (130-400); RBC 3.99 10x6/uL (4.00-5.40); RDW 14.8 % (11.5-14.5); WBC 6.6 10x3/uL (4.8-10.8)
[2017-06-27 07:07] LABS: MCV 97.7 fL (80.0-100.0)
[2017-06-27 07:25] LABS: ALBUMIN 2.9 g/dL (3.4-5.0); ANION GAP 12.3 mmol/L (8-16); BILIRUBIN - TOTAL 0.28 mg/dL (0.2-1.3); CALCIUM 10.1 mg/dL (8.5-10.1); CARBON DIOXIDE 25.8 mmol/L (21.0-32.0); CREATININE - SERUM 1.4 mg/dL (0.6-1.3); POTASSIUM - SERUM 5.1 mmol/L (3.5-5.1); PROTEIN - SERUM 6.9 g/dL (6.4-8.2)
--- NOTE | 2017-06-27 07:37 | OP ---
PATIENT NAME: RUSS FAIRBANKS MEDICAL RECORD: [id number] :[birth year] LOCATION:D.[id number] ADMISSION DATE:06/23/17 SURGEON: ABHINAV LEIGH DO DATE OF OPERATION: 06/26/2017 PROCEDURE PERFORMED: Left knee infrapatellar bursa incision and debridement. PREOPERATIVE DIAGNOSIS: Left knee infrapatellar septic bursitis. POSTOPERATIVE DIAGNOSIS: Left knee infrapatellar septic bursitis. INDICATIONS: Ms. Fairbanks is an 87-year-old female who presented to the hospital 2 days ago with cellulitis on her left lower extremity up to her knee. There was a collection of fluid over the infrapatellar bursa, which did drain over the Sunday night; however, did stop draining. The patient was put on vancomycin and cultures were taken in the ER and shown to be MSSA. The patient had a consolidation of fluctuance in the infrapatellar bursa of the left knee and I decided to do an I&D and to ensure it did not communicate with the knee joint itself as well. She was consented for the procedure with possible polyethylene swab indicates that it did go into her knee. SURGEON: Abhinav Leigh DO COMPLICATIONS: None. ESTIMATED BLOOD LOSS: Minimal. TOURNIQUET: Not inflated during this procedure. DESCRIPTION OF PROCEDURE: The patient was taken to the operative suite and given general anesthetic and LMA was placed. The left leg was identified, and prepped and draped in sterile fashion. A timeout was performed, everyone was in agreement that the left leg was the correct leg and that we were doing the correct procedure on the correct patient. She was given 2 grams of Ancef preoperatively, even though she is on vancomycin on the floor. Once this was done, an incision was made over the infrapatellar bursa just inferior to the knee joint itself. Once this incision was made, purulence came out of the wound. Cultures were taken at that time. Once this incision was made down to the bursa itself and irrigation was used in the wound as well as a scrub brush to scrub any loose bodies and to get a good bleeding surface. Once this was done, the wound was probed thoroughly and not seem to communicate with the knee joint itself. The wound was then irrigated more and the skin was closed with 4-0 Monocryl in a horizontal mattress fashion and then a 4-0 nylon in between those in a vertical mattress fashion. Adaptic, 4 x 4's, ABD, Webril, and Alfredo wrap were then placed on the knee. The patient was awakened and taken to recovery room in stable condition. TRANSINT:[id number] Voice Confirmation ID: [id number] DOCUMENT ID: [id number] OPERATIVE REPORT [id number] RUSS FAIRBANKS MICHAEL D, DO at 0737 CC: [id number] DICTATION DATE: 06/26/172054 SALES ENGINEER: 06/26/17 0139 ADM IN [facility] [address] [id number]
--- NOTE | 2017-06-27 08:31 | NUR ---
PT AOX4 RESP EVEN AND NONLABORED PT DENIES NEEDS AT THIS TIME IV TO RIGHT WRIST PATENT AND NONLABORED SRX2 BED AT LOWEST SETTING CALL LIGHT WITHIN REACH WILL CONTINUE TO MONITOR
[2017-06-27 08:32] VITALS: BP 148/46
[2017-06-27 12:59] VITALS: BP 141/44
--- NOTE | 2017-06-27 15:11 | NUR ---
NUTRITION F/U CHART REVIEWED. PT TOLERATING REG DIET WITH ~ 60% INTAKE RECENT MEALS. WILL CONTINUE TO PROVIDE DIET, MONITOR PO INTAKE. RD FOLLOWING
[2017-06-27 16:24] VITALS: BP 160/44
--- NOTE | 2017-06-27 20:23 | NUR ---
PATIENT RESTING IN BED AND DENIES NEEDS AT THIS TIME. BED IN LOWEST POSITION AND CALL LIGHT WITHIN REACH. COMPLETED ASSESSMENT. ENCOURAGED THE PT TO CALL IF SHE HAS NEEDS.
[2017-06-27 23:58] VITALS: BP 141/44
--- NOTE | 2017-06-28 00:24 | NUR ---
PT IS LYING ON LEFT SIDE, EVEN RISE AND FALL OF CHEST, EYES ARE CLOSED, NO SIGNS OF DISTRESS, BED IN LOW POSITION, CALL LIGTH IN REACH, CONTINUE WITH CARE PLAN
[2017-06-28 02:33] VITALS: BP 124/43
[2017-06-28 06:14] LABS: BASOPHILS 0.3 % (0-2); EOSINOPHILS 3.7 % (0-7); HEMATOCRIT 36.7 % (36.0-48.0); HEMOGLOBIN 11.5 g/dL (12-16); LYMPHOCYTES 16.2 % (15-50); MCH 31.1 pg (26.0-34.0); MCHC 31.3 g/dL (31.0-37.0); MCV 99.2 fL (80.0-100.0); MEAN PLATELET VOLUME 10.6 fL (7.4-10.4); MONOCYTES 9.3 % (2-11); NEUTROPHILS 69.5 % (40-80); PLATELET COUNT 242 10x3/uL (130-400); WBC 7.8 10x3/uL (4.8-10.8)
[2017-06-28 06:28] LABS: ANION GAP 14.7 mmol/L (8-16); CALCIUM 9.2 mg/dL (8.5-10.1); CARBON DIOXIDE 24.3 mmol/L (21.0-32.0); CREATININE - SERUM 1.3 mg/dL (0.6-1.3)
[2017-06-28 06:30] VITALS: BP 112/46
[2017-06-28 10:05] VITALS: BP 146/47
[2017-06-28 13:29] VITALS: BP 146/52
[2017-06-28] MEDS ORDERED: SYNTHROID150 MCG PO (14:42)
[2017-06-28] MEDS ORDERED: KEFLEX500 MG PO (14:42)
--- NOTE | 2017-06-28 15:26 | NUR ---
PATIENT IS DISCHARGING TO [facility] IP REHAB TODAY BY FACILITY [facility]. PATIENT AND HER FAMILY WANTED [facility] AND REFERRAL WAS SENT THERE. IP REHAB HERE WAS OFFERED AND DECLINED BY FAMILY.
== END 2017-06-28 17:29 | DRG 501 ==
LOC: D.ER 14:06 → D.MS 18:28
PROVIDERS: Emergency Medicine; Family Medicine; Orthopaedic Surgery; Physician Assistant; ADMIT Family Medicine
PROC: 0MDP0ZZ Extraction of Left Knee Bursa and Ligament, Open Approach (ICD-10-PCS; principal; 2017-06-26 15:00)
DX: M71.162 Other infective bursitis, left knee (principal); L03.116 Cellulitis of left lower limb; N17.9 Acute kidney failure, unspecified; I25.10 Atherosclerotic heart disease of native coronary artery without angina pectoris; I73.9 Peripheral vascular disease, unspecified; I48.2 Chronic atrial fibrillation; E86.0 Dehydration; B95.61 Methicillin susceptible Staphylococcus aureus infection as the cause of diseases classified elsewhere; I10 Essential (primary) hypertension

== ENCOUNTER → 2017-07-15 16:23 | Outpatient (CLI) | payer MEDICARE, OTHER ==
[~2017-07-15 16:23] MED LIST changes: +BUMETANIDE0.5 MG PO; +DYAZIDE 37.5/251 CAP PO; +KEFLEX500 MG PO; +LIVALO2 MG PO; +NEXIUM40 MG PO
[2017-07-15 16:30] LABS: BASOPHILS 0.2 % (0-2); EOSINOPHILS 2.8 % (0-7); HEMATOCRIT 36.7 % (36.0-48.0); HEMOGLOBIN 11.7 g/dL (12-16); IMMATURE GRANULOCYTES 0.3 % (0-5); LYMPHOCYTES 26.8 % (15-50); MCH 31.1 pg (26.0-34.0); MCHC 31.9 g/dL (31.0-37.0); MCV 97.6 fL (80.0-100.0); MEAN PLATELET VOLUME 11.7 fL (7.4-10.4); MONOCYTES 5.6 % (2-11); NEUTROPHILS 64.3 % (40-80); PLATELET COUNT 167 10x3/uL (130-400); RBC 3.76 10x6/uL (4.00-5.40); RDW 14.4 % (11.5-14.5); WBC 6.4 10x3/uL (4.8-10.8)
== END | disposition home or self-care (01) ==
LOC: D.LABREF 16:23
PROVIDERS: Family Medicine
DX: B95.2 Enterococcus as the cause of diseases classified elsewhere (principal)

== ENCOUNTER 2017-12-26 12:04 | Emergency (ER) | payer MEDICARE, OTHER ==
[2017-12-26 13:42] LABS: BASOPHILS 0.4 % (0-2); HEMATOCRIT 41.8 % (36.0-48.0); HEMOGLOBIN 13.6 g/dL (12-16); IMMATURE GRANULOCYTES 0.1 % (0-5); LYMPHOCYTES 27.5 % (15-50); MCHC 32.5 g/dL (31.0-37.0); MCV 95.2 fL (80.0-100.0); MEAN PLATELET VOLUME 11.3 fL (7.4-10.4); MONOCYTES 8.8 % (2-11); NEUTROPHILS 61.2 % (40-80); PLATELET COUNT 176 10x3/uL (130-400); RBC 4.39 10x6/uL (4.00-5.40); RDW 14.2 % (11.5-14.5); WBC 7.9 10x3/uL (4.8-10.8)
[2017-12-26 14:19] LABS: ALBUMIN 3.8 g/dL (3.4-5.0); ALKALINE PHOSPHATASE 59 U/L (46-116); ALT (SGPT) 25 U/L (10-68); BILIRUBIN - TOTAL 0.29 mg/dL (0.2-1.3); CALC OSMOLALITY 291 mosm/kg (275-300); CALCIUM 9.6 mg/dL (8.5-10.1); CARBON DIOXIDE 25.3 mmol/L (21.0-32.0); CHLORIDE - SERUM 106 mmol/L (98-107); CREATININE - SERUM 2.1 mg/dL (0.6-1.3); GLUCOSE 115 mg/dL (74-106); POTASSIUM - SERUM 4.6 mmol/L (3.5-5.1); PROTEIN - SERUM 6.7 g/dL (6.4-8.2); SODIUM 140 mmol/L (136-145); UREA NITROGEN 47 mg/dL (7-18); eGFR NON AFRICAN AMERICAN 23 mL/min (90-120)
[2017-12-26 14:30] LABS: T4 THYROXIN - FREE 1.33 ng/dL (0.76-1.46); THYROID STIMULATING HORMONE 2.12 uIU/mL (0.36-3.74)
[2017-12-26 14:38] LABS: TROPONIN-I < 0.017 ng/mL (0.000-0.060)
[2017-12-26 15:05] LABS: APPEARANCE CLEAR (CLEAR); BILIRUBIN NEGATIVE (NEGATIVE); COLOR YELLOW (YELLOW); GLUCOSE NEGATIVE (NEGATIVE); KETONE NEGATIVE (NEGATIVE); NITRITE NEGATIVE (NEGATIVE); PROTEIN NEGATIVE (NEGATIVE); TRIPLE PHOSPHATE CRYSTALS 0-5 /hpf (NONE SEEN); UROBILINOGEN NORMAL (NORMAL)
== END 2017-12-26 15:42 | disposition home or self-care (01) ==
LOC: D.ER 12:04
PROVIDERS: Family Medicine
DX: I48.92 Unspecified atrial flutter (principal); I48.91 Unspecified atrial fibrillation; Z79.01 Long term (current) use of anticoagulants; I44.30 Unspecified atrioventricular block

== ENCOUNTER 2018-02-03 13:29 | Inpatient (IN) | payer MEDICARE, OTHER ==
[~2018-02-03] VITALS: Ht 162.6 cm; Wt 83.8 kg
[2018-02-03] VITALS (7 sets, daily range): BP systolic 127–165; BP diastolic 50–69
--- NOTE | ~2018-02-03 | CN ---
PATIENT NAME:RUSS FAIRBANKS MEDICAL RECORD: [id number] : [birth year] LOCATION:D.[id number] ADMIT DATE: 02/03/18 ACCOUNT: [id number] CONSULTING PHYSICIAN: JOSH MONTEMAYOR MD REFERRING PHYSICIAN: THUY GUZMÁN DO DATE OF CONSULTATION: 02/04/2018 CARDIOLOGY CONSULTATION DATE OF SERVICE: 02/04/2018 ADMITTING DIAGNOSES: 1. Pulmonary edema. 2. Shortness of breath. 3. Congestive heart failure. 4. Atrial fibrillation. HISTORY OF PRESENT ILLNESS: Mrs. Fairbanks is with history of atrial fibrillation, status post cardioversion times 6, the last being last week at [facility]. She now presents with fluid overload, shortness of breath, found to have pulmonary edema, possible pneumonia as well. She has atrial fibrillation that is recurrent. Her rate is controlled. She is on amiodarone as well as Xarelto. PHYSICAL EXAMINATION: GENERAL APPEARANCE: Well-nourished, well-developed, appears stated age. Level of distress, comfortable. PSYCHIATRIC: Mental status, alert, normal affect. Orientation, oriented to time, place and person. EYES: Lids and conjunctiva, noninjected. No discharge, no pallor. ENT: Lips, teeth, gums, normal dentition. Oropharynx, no cyanosis, no pallor. NECK: Carotid arteries, bilateral normal upstroke, no bruits, no thrills. JUGULAR VEINS: No jugular venous pressure or distention. CERVICAL LYMPH NODES: Nontender, nonenlarged. THYROID: Not enlarged. Nontender. No nodules. LUNGS: Respiratory effort, unlabored. CHEST: Normal curvature. No thoracic deformity. No chest wall tenderness. Percussion, resonant. Auscultation, clear. No wheezes, no rales, no rhonchi. CARDIOVASCULAR: Precordial exam, nondisplaced. No heaves or pericardial thrills. Rate and rhythm, regular. Heart sounds, normal S1, normal S2. No S3, no gallop, no rub. Systolic murmur, not heard. Diastolic murmur, not heard. EXTREMITIES: No cyanosis, no edema. Peripheral pulses, full and equal in all extremities, except as noted. No bruits appreciated. ABDOMEN: Soft, nondistended. Normal aorta. No bruit. Nontender. No masses. Liver, nontender, no hepatomegaly. Spleen, nontender, no splenomegaly. MUSCULOSKELETAL: No joint tenderness. No joint swelling. No erythema. NEUROLOGICAL: Normal gait, normal strength, normal tone. SKIN: Warm and dry. OVERALL IMPRESSION: Pulmonary edema. We will get an echocardiogram to evaluate her left ventricular chamber and her left ventricular function to see if dobutamine would be of benefit. Otherwise, only diuresis from the atrial fibrillation standpoint, she is rate controlled. She is on Xarelto, would not suggest any further cardioversions. CONSULT REPORT [id number] RUSS FAIRBANKS TRANSINT:[id number] Voice Confirmation ID: [id number] DOCUMENT ID: [id number] JOSH MONTEMAYOR MD at 0938 CC: [id number] DICTATION DATE: 02/04/18 1202 WEB MARKETING INTERN: 02/04/18 1354 ADM IN [facility] [address] [id number]
--- NOTE | ~2018-02-03 | EC ---
PATIENT:RUSS NOGUEIRA DATE OF SERVICE: 02/03/18 SEX: F MEDICAL RECORD: [id number] DATE OF : [birth year] LOCATION:D.MS [facility] AGE OF PATIENT: 87 ADMISSION DATE: 02/03/18 REFERRING PHYSICIAN: INTERPRETING PHYSICIAN: JOSH WYMAN MD ECHOCARDIOGRAM REPORT ECHO CHARGES 4 ECHO COMPLETE Date: 02/04 CLINICAL DIAGNOSIS: CHF ? ECHOCARDIOGRAPHIC MEASUREMENTS (adult normal given) AC root (d.<3.7cm) 2.7 cm LV Septum d (<1.2 cm> 1.6 cm Valve Excursion 1.3 cm LV Septum (systole) 2.5 cm Left Atria (s.<4.0cm> 3.8 cm LVPW d(<1.2cm) 1.7 cm RV (d.<2.3cm) 2.5 cm LVPW (sytole) 2.0 cm LV diastole(<5.6CM) 3.6 cm MV E-F(>70mm/sec) cm LV systole 1.4 cm LVOT Diameter 1.6 cm MV exc.(>10mm) cm Est.ejection fraction (50-75%) % DOPPLER: LVIT cm/sec A cm/sec E 134 cm/sec LA cm/sec RVSP 50.0 mmHg LVOT 169 cm/sec AOP1/2T m/s Asc. Ao 165 cm/sec RVOT 89.0 cm/sec RA cm/sec PA 133 cm/sec AV Gradient Peak 11.0 mmHg AV Mean 6.2 mmHg AV Area 2.2 cm MV Gradient Peak 9.4 mmHg MV Mean 2.7 mmHg MV Area cm COMMENTS: Ways Operator: 1 MILTON ROBERTSOE Front Maker Lockstitch: 1 Dr. Wyman TAPE# PACS Pericardial Effusion N DATE OF SERVICE: PROCEDURE: Echocardiogram. FINDINGS: 1. Left ventricular chamber size is within normal limits. Left ventricular systolic function is normal. Overall ejection fraction estimated at 60%. 2. Left atrium is within normal limits at 3.8 cm. Right atrium and right ventricle chamber sizes are mildly dilated. 3. Valvular structures have normal structure and motion. ECHOCARDIOGRAM REPORT [id number] RUSS NOGUEIRA 4. Doppler interrogation reveals moderate tricuspid regurgitation, no other valvular insufficiency or stenosis. Pulmonary systolic pressure is mildly elevated, estimated at 50 mmHg. 5. No evidence of pericardial effusion or left ventricular thrombus. TRANSINT:[id number] Voice Confirmation ID: [id number] DOCUMENT ID: [id number] JOSH WYMAN MD at 1710 CC: [id number] DICTATION DATE: 02/05/18951 SALES OPERATIONS ASSOCIATE: 02/05/18 1100 ADM IN [facility] [address] [place] [address]
[2018-02-03] MEDS ORDERED: AMBIEN5 MG PO (13:36)
[2018-02-03] MEDS ORDERED: ZOCOR10 MG PO (13:36)
[2018-02-03] MEDS ORDERED: TEMAZEPAM30 MG PO (13:37)
[2018-02-03] MEDS ORDERED: DYAZIDE 37.5/251 CAP PO (13:39)
[2018-02-03] MEDS ORDERED: PACERONE200 MG PO (13:40)
[2018-02-03 14:03] LABS: BASOPHILS 0.1 % (0-2); EOSINOPHILS 0.7 % (0-7); HEMATOCRIT 41.3 % (36.0-48.0); HEMOGLOBIN 13.2 g/dL (12-16); IMMATURE GRANULOCYTES 0.6 % (0-5); LYMPHOCYTES 13.7 % (15-50); MCH 31.5 pg (26.0-34.0); MCV 98.6 fL (80.0-100.0); MEAN PLATELET VOLUME 10.9 fL (7.4-10.4); MONOCYTES 7.7 % (2-11); NEUTROPHILS 77.2 % (40-80); PLATELET COUNT 150 10x3/uL (130-400); RBC 4.19 10x6/uL (4.00-5.40); RDW 15.1 % (11.5-14.5); WBC 13.6 10x3/uL (4.8-10.8)
[2018-02-03 14:33] LABS: ALBUMIN 3.8 g/dL (3.4-5.0); ALKALINE PHOSPHATASE 58 U/L (46-116); ALT (SGPT) 48 U/L (10-68); BILIRUBIN - TOTAL 0.62 mg/dL (0.2-1.3); CALC OSMOLALITY 295 mosm/kg (275-300); CALCIUM 9.2 mg/dL (8.5-10.1); CARBON DIOXIDE 24.1 mmol/L (21.0-32.0); CHLORIDE - SERUM 109 mmol/L (98-107); CREATININE - SERUM 1.6 mg/dL (0.6-1.3); GLUCOSE 142 mg/dL (74-106); POTASSIUM - SERUM 4.9 mmol/L (3.5-5.1); PROTEIN - SERUM 7.3 g/dL (6.4-8.2); SODIUM 143 mmol/L (136-145); UREA NITROGEN 39 mg/dL (7-18); eGFR NON AFRICAN AMERICAN 32 mL/min (90-120)
[2018-02-03 14:34] LABS: TROPONIN-I < 0.017 ng/mL (0.000-0.060)
[2018-02-03 14:52] LABS: THYROID STIMULATING HORMONE 2.14 uIU/mL (0.36-3.74)
[2018-02-04] VITALS: BP 106/51
[2018-02-04 01:29] LABS: APPEARANCE CLEAR (CLEAR); BILIRUBIN NEGATIVE (NEGATIVE); COLOR YELLOW (YELLOW); EPITHELIAL CELLS NSEEN /hpf (0-5); GLUCOSE NEGATIVE (NEGATIVE); KETONE NEGATIVE (NEGATIVE); NITRITE NEGATIVE (NEGATIVE); PROTEIN NEGATIVE (NEGATIVE); RED CELLS - URINE 0-5 /hpf (0-5); UROBILINOGEN NORMAL (NORMAL); WHITE CELLS - URINE RARE /hpf (0-5)
[2018-02-04 04:00] VITALS: BP 90/49
[2018-02-04 04:20] LABS: BASOPHILS 0.1 % (0-2); EOSINOPHILS 0.5 % (0-7); HEMATOCRIT 39.4 % (36.0-48.0); HEMOGLOBIN 12.7 g/dL (12-16); IMMATURE GRANULOCYTES 0.2 % (0-5); LYMPHOCYTES 19.2 % (15-50); MCHC 32.2 g/dL (31.0-37.0); MEAN PLATELET VOLUME 11.4 fL (7.4-10.4); MONOCYTES 9.3 % (2-11); NEUTROPHILS 70.7 % (40-80); PLATELET COUNT 158 10x3/uL (130-400); RDW 14.6 % (11.5-14.5)
[2018-02-04 04:30] LABS: MCV 96.1 fL (80.0-100.0); WBC 10.1 10x3/uL (4.8-10.8)
[2018-02-04 04:42] LABS: ANION GAP 12.6 mmol/L (8-16); CALCIUM 9.4 mg/dL (8.5-10.1); CREATININE - SERUM 1.7 mg/dL (0.6-1.3); POTASSIUM - SERUM 3.6 mmol/L (3.5-5.1)
[2018-02-04 08:25] VITALS: BP 82/40
[2018-02-04 11:49] VITALS: BP 72/35
[2018-02-04 14:58] VITALS: Ht 162.6 cm; Wt 83.8 kg
[2018-02-04 16:43] VITALS: BP 83/34
[2018-02-04 20:00] VITALS: BP 93/33
[2018-02-05 00:08] VITALS: BP 97/40
[2018-02-05 04:00] VITALS: BP 120/50
[2018-02-05 04:20] LABS: BASOPHILS 0.1 % (0-2); EOSINOPHILS 1.4 % (0-7); HEMATOCRIT 36.7 % (36.0-48.0); HEMOGLOBIN 11.7 g/dL (12-16); IMMATURE GRANULOCYTES 0.3 % (0-5); LYMPHOCYTES 22.5 % (15-50); MCH 30.7 pg (26.0-34.0); MCHC 31.9 g/dL (31.0-37.0); MCV 96.3 fL (80.0-100.0); MONOCYTES 10.6 % (2-11); NEUTROPHILS 65.1 % (40-80); PLATELET COUNT 145 10x3/uL (130-400); RBC 3.81 10x6/uL (4.00-5.40); RDW 14.7 % (11.5-14.5); WBC 7.7 10x3/uL (4.8-10.8)
[2018-02-05 04:53] LABS: ALBUMIN 2.9 g/dL (3.4-5.0); ANION GAP 11.9 mmol/L (8-16); BILIRUBIN - TOTAL 0.35 mg/dL (0.2-1.3); CALCIUM 8.6 mg/dL (8.5-10.1); CARBON DIOXIDE 28.6 mmol/L (21.0-32.0); MAGNESIUM - SERUM 1.9 mg/dL (1.8-2.4); PHOSPHOROUS 5.4 mg/dL (2.5-4.9); POTASSIUM - SERUM 3.5 mmol/L (3.5-5.1); PROTEIN - SERUM 6.1 g/dL (6.4-8.2)
[2018-02-05 04:59] LABS: CREATININE - SERUM 2.2 mg/dL (0.6-1.3)
[2018-02-05 08:11] VITALS: BP 122/45
[2018-02-05 13:04] VITALS: BP 129/61
[2018-02-05 16:55] VITALS: BP 126/62
[2018-02-05 20:00] VITALS: BP 116/54
[2018-02-06] VITALS: BP 142/69
[2018-02-06 04:00] VITALS: BP 131/52
[2018-02-06 05:03] LABS: BASOPHILS 0.1 % (0-2); EOSINOPHILS 2.8 % (0-7); HEMATOCRIT 39.4 % (36.0-48.0); HEMOGLOBIN 12.7 g/dL (12-16); IMMATURE GRANULOCYTES 0.4 % (0-5); LYMPHOCYTES 15.3 % (15-50); MCHC 32.2 g/dL (31.0-37.0); MCV 96.1 fL (80.0-100.0); MEAN PLATELET VOLUME 11.3 fL (7.4-10.4); MONOCYTES 7.4 % (2-11); PLATELET COUNT 163 10x3/uL (130-400); RDW 14.6 % (11.5-14.5)
[2018-02-06 05:35] LABS: ALBUMIN 3.2 g/dL (3.4-5.0); ANION GAP 11.1 mmol/L (8-16); BILIRUBIN - TOTAL 0.4 mg/dL (0.2-1.3); CARBON DIOXIDE 28.4 mmol/L (21.0-32.0); MAGNESIUM - SERUM 1.8 mg/dL (1.8-2.4); POTASSIUM - SERUM 3.5 mmol/L (3.5-5.1); PROTEIN - SERUM 6.5 g/dL (6.4-8.2)
[2018-02-06 05:38] LABS: CREATININE - SERUM 1.2 mg/dL (0.6-1.3); PHOSPHOROUS 3.1 mg/dL (2.5-4.9)
[2018-02-06 08:17] VITALS: BP 145/82
[2018-02-06 12:57] VITALS: BP 137/80
[2018-02-06 16:48] VITALS: BP 160/85
[2018-02-06 20:46] VITALS: BP 130/61
[2018-02-07 05:25] LABS: BASOPHILS 0.1 % (0-2); EOSINOPHILS 3.7 % (0-7); HEMATOCRIT 38.8 % (36.0-48.0); HEMOGLOBIN 12.4 g/dL (12-16); IMMATURE GRANULOCYTES 0.3 % (0-5); LYMPHOCYTES 18.9 % (15-50); MCH 31.1 pg (26.0-34.0); MCV 97.2 fL (80.0-100.0); MEAN PLATELET VOLUME 11.1 fL (7.4-10.4); MONOCYTES 10.1 % (2-11); NEUTROPHILS 66.9 % (40-80); PLATELET COUNT 158 10x3/uL (130-400); RBC 3.99 10x6/uL (4.00-5.40); RDW 14.5 % (11.5-14.5); WBC 6.8 10x3/uL (4.8-10.8)
[2018-02-07 05:50] LABS: ANION GAP 9.8 mmol/L (8-16); BILIRUBIN - TOTAL 0.5 mg/dL (0.2-1.3); CALCIUM 9.4 mg/dL (8.5-10.1); CARBON DIOXIDE 28.2 mmol/L (21.0-32.0)
[2018-02-07 05:55] LABS: CREATININE - SERUM 0.8 mg/dL (0.6-1.3)
[2018-02-07 06:10] LABS: PROTEIN - SERUM 6.3 g/dL (6.4-8.2)
[2018-02-07] MEDS ORDERED: CARDIZEM CD120 MG PO (07:17)
[2018-02-07] MEDS ORDERED: FLORAJEN3 CAPS460 MG PO (07:17)
[2018-02-07] MEDS ORDERED: DOXYCYCLINE HY100 M2 PO (07:18)
[2018-02-07] MEDS ORDERED: OMNICEF300 MG PO (07:18)
[2018-02-07 08:06] VITALS: BP 128/59
[2018-02-07 13:04] VITALS: BP 136/47
== END 2018-02-07 20:35 | DRG 190 ==
LOC: D.ER 13:29 → D.EDHOLD 16:32 → D.MS 16:32
PROVIDERS: Emergency Medicine; Family Medicine
DX: J44.0 Chronic obstructive pulmonary disease with (acute) lower respiratory infection (principal); J18.9 Pneumonia, unspecified organism; N17.9 Acute kidney failure, unspecified; I48.92 Unspecified atrial flutter; J44.1 Chronic obstructive pulmonary disease with (acute) exacerbation; I48.91 Unspecified atrial fibrillation; I11.0 Hypertensive heart disease with heart failure; I50.9 Heart failure, unspecified; I07.1 Rheumatic tricuspid insufficiency; Z79.02 Long term (current) use of antithrombotics/antiplatelets; M25.511 Pain in right shoulder; I95.9 Hypotension, unspecified; E86.0 Dehydration

== ENCOUNTER 2018-02-25 17:34 | Inpatient (IN) | payer MEDICARE, OTHER ==
[~2018-02-25] VITALS: Ht 162.6 cm; Wt 85.6 kg
[~2018-02-25 17:34] MED LIST changes: +AMBIEN5 MG PO; +CARDIZEM CD120 MG PO; +FLORAJEN3 CAPS460 MG PO; +OMNICEF300 MG PO; +PACERONE200 MG PO; +TEMAZEPAM30 MG PO; +ZOCOR10 MG PO
[2018-02-25 21:12] LABS: APPEARANCE CLEAR (CLEAR); BILIRUBIN NEGATIVE (NEGATIVE); COLOR YELLOW (YELLOW); GLUCOSE NEGATIVE (NEGATIVE); KETONE NEGATIVE (NEGATIVE); NITRITE NEGATIVE (NEGATIVE); PROTEIN NEGATIVE (NEGATIVE); UROBILINOGEN NORMAL (NORMAL)
[2018-02-25 21:13] LABS: BACTERIA FEW /hpf (NONE SEEN); EPITHELIAL CELLS 0-5 /hpf (0-5); RED CELLS - URINE OCC /hpf (0-5); WHITE CELLS - URINE 0-5 /hpf (0-5)
[2018-02-25 21:53] LABS: BASOPHILS 0.2 % (0-2); EOSINOPHILS 1.7 % (0-7); HEMATOCRIT 37.5 % (36.0-48.0); HEMOGLOBIN 12.2 g/dL (12-16); IMMATURE GRANULOCYTES 0.2 % (0-5); LYMPHOCYTES 16.6 % (15-50); MCH 31.2 pg (26.0-34.0); MCHC 32.5 g/dL (31.0-37.0); MCV 95.9 fL (80.0-100.0); MEAN PLATELET VOLUME 11.4 fL (7.4-10.4); MONOCYTES 8.3 % (2-11); RBC 3.91 10x6/uL (4.00-5.40); RDW 14.6 % (11.5-14.5); WBC 9.3 10x3/uL (4.8-10.8)
[2018-02-25 21:57] VITALS: BP 134/66
[2018-02-25 21:57] LABS: PLATELET COUNT 191 10x3/uL (130-400)
[2018-02-25 22:01] LABS: INR 1.33 (0.85-1.17)
[2018-02-25 22:10] LABS: ALBUMIN 3.5 g/dL (3.4-5.0); ANION GAP 8.3 mmol/L (8-16); BILIRUBIN - TOTAL 0.32 mg/dL (0.2-1.3); CALCIUM 9.3 mg/dL (8.5-10.1); CARBON DIOXIDE 32.4 mmol/L (21.0-32.0); CREATININE - SERUM 1.5 mg/dL (0.6-1.3); POTASSIUM - SERUM 4.7 mmol/L (3.5-5.1); PROTEIN - SERUM 6.7 g/dL (6.4-8.2)
[2018-02-26] VITALS (10 sets, daily range): BP systolic 106–148; BP diastolic 52–84
[2018-02-26 03:23] LABS: HEMATOCRIT 37.4 % (36.0-48.0); HEMOGLOBIN 12.1 g/dL (12-16)
[2018-02-26 11:02] LABS: HEMATOCRIT 37.1 % (36.0-48.0); HEMOGLOBIN 12.1 g/dL (12-16)
[2018-02-26 18:10] LABS: HEMATOCRIT 32.6 % (36.0-48.0)
[2018-02-27] VITALS (7 sets, daily range): BP systolic 101–129; BP diastolic 38–84; Ht 162.6 cm; Wt 85.6 kg
[2018-02-27 05:47] LABS: BASOPHILS 0.3 % (0-2); EOSINOPHILS 3.1 % (0-7); HEMATOCRIT 36.8 % (36.0-48.0); HEMOGLOBIN 11.5 g/dL (12-16); IMMATURE GRANULOCYTES 0.4 % (0-5); LYMPHOCYTES 24.3 % (15-50); MCH 30.5 pg (26.0-34.0); MCHC 31.3 g/dL (31.0-37.0); MCV 97.6 fL (80.0-100.0); MEAN PLATELET VOLUME 11.9 fL (7.4-10.4); MONOCYTES 10.6 % (2-11); NEUTROPHILS 61.3 % (40-80); PLATELET COUNT 187 10x3/uL (130-400); RBC 3.77 10x6/uL (4.00-5.40); RDW 14.6 % (11.5-14.5); WBC 7.7 10x3/uL (4.8-10.8)
[2018-02-27 06:48] LABS: ALBUMIN 2.9 g/dL (3.4-5.0); ANION GAP 8.5 mmol/L (8-16); BILIRUBIN - TOTAL 0.24 mg/dL (0.2-1.3); CALCIUM 8.5 mg/dL (8.5-10.1); CARBON DIOXIDE 30.6 mmol/L (21.0-32.0); CREATININE - SERUM 1.4 mg/dL (0.6-1.3); POTASSIUM - SERUM 4.1 mmol/L (3.5-5.1); PROTEIN - SERUM 5.8 g/dL (6.4-8.2)
[2018-02-28 01:16] VITALS: BP 111/48
[2018-02-28 04:30] VITALS: BP 125/45
[2018-02-28 05:53] LABS: BASOPHILS 0.1 % (0-2); EOSINOPHILS 2.9 % (0-7); HEMATOCRIT 37.2 % (36.0-48.0); HEMOGLOBIN 11.8 g/dL (12-16); IMMATURE GRANULOCYTES 0.3 % (0-5); LYMPHOCYTES 25.1 % (15-50); MCHC 31.7 g/dL (31.0-37.0); MCV 97.6 fL (80.0-100.0); MONOCYTES 8.7 % (2-11); NEUTROPHILS 62.9 % (40-80); PLATELET COUNT 176 10x3/uL (130-400); RBC 3.81 10x6/uL (4.00-5.40); RDW 14.4 % (11.5-14.5); WBC 7.5 10x3/uL (4.8-10.8)
[2018-02-28 07:14] LABS: ANION GAP 10.4 mmol/L (8-16); BILIRUBIN - TOTAL 0.21 mg/dL (0.2-1.3); CALCIUM 8.7 mg/dL (8.5-10.1); CARBON DIOXIDE 30.3 mmol/L (21.0-32.0); CREATININE - SERUM 1.5 mg/dL (0.6-1.3); POTASSIUM - SERUM 4.7 mmol/L (3.5-5.1); PROTEIN - SERUM 5.7 g/dL (6.4-8.2)
[2018-02-28 08:01] VITALS: BP 115/72
[2018-02-28 11:21] VITALS: BP 122/76
[2018-02-28 15:33] VITALS: BP 130/77
[2018-02-28 20:57] VITALS: BP 130/54
[2018-03-01 04:00] VITALS: BP 144/57
[2018-03-01 05:20] LABS: BASOPHILS 0.1 % (0-2); HEMATOCRIT 39.2 % (36.0-48.0); HEMOGLOBIN 12.5 g/dL (12-16); IMMATURE GRANULOCYTES 0.3 % (0-5); LYMPHOCYTES 22.6 % (15-50); MCH 30.8 pg (26.0-34.0); MCHC 31.9 g/dL (31.0-37.0); MCV 96.6 fL (80.0-100.0); MEAN PLATELET VOLUME 11.3 fL (7.4-10.4); MONOCYTES 8.1 % (2-11); NEUTROPHILS 65.9 % (40-80); PLATELET COUNT 176 10x3/uL (130-400); RBC 4.06 10x6/uL (4.00-5.40); RDW 14.1 % (11.5-14.5); WBC 7.8 10x3/uL (4.8-10.8)
[2018-03-01 06:08] LABS: ANION GAP 8.7 mmol/L (8-16); BILIRUBIN - TOTAL 0.34 mg/dL (0.2-1.3); CALCIUM 8.8 mg/dL (8.5-10.1); CARBON DIOXIDE 29.5 mmol/L (21.0-32.0); CREATININE - SERUM 1.2 mg/dL (0.6-1.3); POTASSIUM - SERUM 4.2 mmol/L (3.5-5.1); PROTEIN - SERUM 6.1 g/dL (6.4-8.2); T4 THYROXIN - FREE 1.28 ng/dL (0.76-1.46); THYROID STIMULATING HORMONE 2.61 uIU/mL (0.36-3.74)
[2018-03-01 08:30] VITALS: BP 156/75
[2018-03-01] MEDS ORDERED: MIRAPEX1 MG PO (11:36)
[2018-03-01] MEDS ORDERED: ZOLOFT50 MG PO (11:36)
[2018-03-01] MEDS ORDERED: CORDARONE200 MG PO (11:36)
[2018-03-01] MEDS ORDERED: SYNTHROID137 MCG PO (11:37)
[2018-03-01] MEDS ORDERED: TYLENOL W/CODEI1 TAB PO (11:38)
[2018-03-01 12:01] VITALS: BP 127/77
== END 2018-03-01 13:08 | DRG 552 ==
LOC: D.ER 17:34 → D.M2 22:50 → D.EDHOLD 22:50 → D.M2 02-26 19:55 → D.SDCHOLD 02-28 13:48 → D.M2 02-28 13:51
PROVIDERS: Emergency Medicine; Family Medicine
DX: S32.019A Unspecified fracture of first lumbar vertebra, initial encounter for closed fracture (principal); S22.089A Unspecified fracture of T11-T12 vertebra, initial encounter for closed fracture; I13.0 Hypertensive heart and chronic kidney disease with heart failure and stage 1 through stage 4 chronic kidney disease, or unspecified chronic kidney disease; S36.892A Contusion of other intra-abdominal organs, initial encounter; S32.029A Unspecified fracture of second lumbar vertebra, initial encounter for closed fracture; S32.039A Unspecified fracture of third lumbar vertebra, initial encounter for closed fracture; W08.XXXA Fall from other furniture, initial encounter; K21.9 Gastro-esophageal reflux disease without esophagitis; I50.9 Heart failure, unspecified; N18.9 Chronic kidney disease, unspecified; J44.9 Chronic obstructive pulmonary disease, unspecified; E03.9 Hypothyroidism, unspecified; F32.9 Major depressive disorder, single episode, unspecified; S90.512A Abrasion, left ankle, initial encounter; S30.0XXA Contusion of lower back and pelvis, initial encounter; I48.2 Chronic atrial fibrillation

== ENCOUNTER 2018-06-13 16:37 | Inpatient (IN) | payer MEDICARE, OTHER ==
[~2018-06-13] VITALS: Ht 162.6 cm; Wt 83.4 kg
--- NOTE | ~2018-06-13 | MORECARE ---
CASE MANAGEMENT DISCHARGE SUMMARY PATIENT: RUSS NOGUEIRA UNIT: [id number] ADM DATE: 06/13/18 AGE: 88 : 29 SEX: F ROOM/BED: D.1166 AUTHOR: HANS PENN PHYSICIAN: REFERRING PHYSICIAN: THUY GUZMÁN DO DATE OF SERVICE: 06/19/18 Discharge Plan Patient Name: RUSS NOGUEIRA Facility: [facility]:[place] : 1930 Planned Disposition: Inpatient Rehab Anticipated Discharge Date: 06/19/18 Discharge Date: Expected LOS: 6 Initial Reviewer: [id number] Initial Review Date: 06/18/2018 Generated: 06/19/18 11:57 am Comments DCP- Discharge Planning Updated by [email or web address]: Siva Linton on 06/18/18 9:[address] Patient Name: RUSS NOGUEIRA Admission Status: ER Accout number: [id number] Admission Date: 06-13-2018 : 1930 Admission Diagnosis:SHORTNESS OF BREATH Attending: Thuy Guzmán Current LOS: 5 Anticipated DC Date: 06-19-2018 Planned Disposition: Inpatient Rehab Primary Insurance: MEDICARE A & B PLANNED EXTERNAL PROVIDER: [facility] INPATIENT REHAB Discharge Planning Comments: CM RECEIVED ORDER FOR INPATIENT REHAB PRESCREENING, MET WITH PT IN ROOM TO DISCUSS DISCHARGE PLANNING AND NEEDS. PT REPORTS LIVING AT HOME INDEPENDENTLY AND ALONE. PT REPORTS HAVING A CANE, HOME AND PORTABLE OXYGEN AND ROLLING WALKER FROM [facility]. 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 CM DISCUSSED AVAILABILITY OF HOME HEALTH, REHAB SERVICES AND MEDICAL EQUIPMENT CM DISCUSSED REHAB PROVIDERS AND LOCATIONS. PT REPORTS SHE HAS BEEN TO [facility] IN THE PAST AND WOULD LIKE TO BE CONSIDERED FOR REHAB THERE AGAIN. PT REPORTS HER DAUGHTER WILL PICK HER UP FOR DISCHARGE HOME. IMPORTANT MESSAGE FROM MEDICARE PROVIDED AND EXPLAINED CM CALLED KORI OF [facility] INPATIENT REH[facility], , LEFT MESSAGE ASKING FOR INPATIENT REHAB ADMISSION SCREENING. CM FAXED REFERRAL INFORMATION TO [facility] WITH CURRENT MAR AT [phone]. CM WAITING ADMISSION DETERMINATION FROM [facility] INPATIENT RE[facility]. Clicker Operator: Siva Linton DCPIA - Discharge Planning Initial Assessment Updated by [id number]: Siva Linton on 06/18/18 10:01 am * Is the patient Alert and Oriented? Yes * How many steps to enter\exit or inside your home? 4 W/RAILS * PCP DR. GUZMÁN * Pharmacy [facility] * Preadmission Environment Home Alone * ADLs Independent * Equipment Cane Oxygen Rolling Walker * Other Equipment HOME AND PORTABLE OXYGEN [facility] - PROVIDER * List name and contact numbers for known caregivers / representatives who currently or will assist patient after discharge: HAROON GUEVARA, DTR, * Verbal permission to speak to the caregivers and representatives has been obtained from the patient. N/A * Community resources currently utilized Other * Please name any agencies selected above. SALT CUTTER, 1X EVERY 3-4 WEEKS * Additional services required to return to the preadmission environment? Yes * Can the patient safely return to the preadmission environment? Yes * Has this patient been hospitalized within the prior 30 days at any hospital? No Coverage Notice Reviewer: [id number] - Siva Linton Notice Issued Date-Time: 06/18/2018 9:50 Notice Type: IM Discharge Notice Notice Delivered To: Patient Relationship to Patient: Director Emergency Services Name: Delivery Method: HAND - Hand Delivered Palma Days: Prior Verbal Notification: Recipient Understood Notice: Yes Recipient Signature: Yes Med Rec Note Co-signed by Attending: Coverage Notice Comment: Last DP export: 06/18/18 9:22 Patient Name: RUSS NOGUEIRA Page [id number] at 1057 All edits/amendments must be made on the electronic document DICTATION DATE: 06/19/181055 GLOVE EXAMINER: JOHN PAUL 06/19/18 1056 RPT#: [id number] DC DATE: STATUS: ADM IN [address] [place] [address] END OF REPORT
--- NOTE | ~2018-06-13 | MORECARE ---
CASE MANAGEMENT DISCHARGE SUMMARY PATIENT: RUSS NOGUEIRA UNIT: [id number] ADM DATE: 06/13/18 AGE: 88 : 29 SEX: F ROOM/BED: D.1989 AUTHOR: ISAMARDOC PHYSICIAN: REFERRING PHYSICIAN: GANGA GUZMÁN DO DATE OF SERVICE: 06/20/18 Discharge Plan Patient Name: RUSS NOGUEIRA Facility: [facility]:[place] : 1930 Planned Disposition: Inpatient Rehab Anticipated Discharge Date: 06/19/18 Discharge Date: 06/19/2018 Expected LOS: 6 Initial Reviewer: [id number] Initial Review Date: 06/18/2018 Generated: 06/20/18 9:39 am Comments DCP- Discharge Planning Updated by [id number]: Siva Linton on 06/19/18 10:[address] Patient Name: RUSS NOGUEIRA Encounter No: [id number] : 1930 Primary Insurance: MEDICARE A & B Anticipated DC Date: 06-19-2018 Planned Disposition: Inpatient Rehab External Planned Provider: [facility] INPATIENT REHAB DCP follow-up note: CM RECEIVED CALL FROM ERIC OF [facility] INPATIENT REHAB, THEY WILL ACCEPT PT TODAY IF DOCTOR IS READY TO DISCHARGE; PT AND DAUGHTER HAVE REQUESTED REHAB AT [facility]. CM MET WITH PT AND DAUGHTER HAROON GUEVARA IN ROOM. RUSS NOGUEIRA provided verbal consent to discuss current and ongoing needs with/in the presence of: HAROON GUEVARA. PT AND DAUGHTER BOTH IN AGREEMENT WITH DISCHARGE TO REHAB AT [facility]. PT WANTS PRIVATE ROOM, CM EXPLAINED THAT ROOMS ARE SEMI PRIVATE AND THAT CM CAN REQUEST PRIVATE ROOM FOR PT BUT THAT MIGHT NOT HAPPEN. PT AND DAUGHTER REPORT UNDERSTANDING AND WANT REHAB AT [facility]. CM NOTIFIED ERIC OF INPATIENT REHAB AT [facility]. CM CALLED KAYLI OF [facility] AND NOTIFIED TO CANCEL REFERRAL TO [facility]. CM CALLED DR. GUZMÁN'S OFFICE, NOTIFIED NURSE LUONG OF REHAB ACCEPTANCE AT [facility]. CM RECEIVED CALL FROM MARIBELL OF INPATIENT REHAB, PT WILL ADMIT TO ROOM 1115 AFTER LUNCH AND STAT CLEAN. CUSTOM FRAME ASSEMBLER NURSE, PROPERTY CLERK AND PT NOTIFIED. WHEN DISCHARGED, NURSE REPORT TO BE CALLED TO INPATIENT REHAB AFTER LUNCH TODAY. PT TO ADMIT TO [facility] INPATIENT REHAB, ROOM 1115. Siva Linton, CASE MANAGEMENT DCP- Discharge Planning Updated by [id number]: Siva Linton on 06/18/18 9:[address] Patient Name: RUSS NOGUEIRA Admission Status: ER Accout number: [id number] Admission Date: 06-13-2018 : 1930 Admission Diagnosis:SHORTNESS OF BREATH Attending: Ganga Guzmán Current LOS: 5 Anticipated DC Date: 06-19-2018 Planned Disposition: Inpatient Rehab Primary Insurance: MEDICARE A & B PLANNED EXTERNAL PROVIDER: [facility] INPATIENT REHAB Discharge Planning Comments: CM RECEIVED ORDER FOR INPATIENT REHAB PRESCREENING, MET WITH PT IN ROOM TO DISCUSS DISCHARGE PLANNING AND NEEDS. PT REPORTS LIVING AT HOME INDEPENDENTLY AND ALONE. PT REPORTS HAVING A CANE, HOME AND PORTABLE OXYGEN AND ROLLING WALKER FROM [facility]. 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 CM DISCUSSED AVAILABILITY OF HOME HEALTH, REHAB SERVICES AND MEDICAL EQUIPMENT CM DISCUSSED REHAB PROVIDERS AND LOCATIONS. PT REPORTS SHE HAS BEEN TO [facility] IN THE PAST AND WOULD LIKE TO BE CONSIDERED FOR REHAB THERE AGAIN. PT REPORTS HER DAUGHTER WILL PICK HER UP FOR DISCHARGE HOME. IMPORTANT MESSAGE FROM MEDICARE PROVIDED AND EXPLAINED CM CALLED KORI OF [facility] INPATIENT REH[facility], , LEFT MESSAGE ASKING FOR INPATIENT REHAB ADMISSION SCREENING. CM FAXED REFERRAL INFORMATION TO [facility] WITH CURRENT MAR AT [phone]. CM WAITING ADMISSION DETERMINATION FROM [facility] INPATIENT REH[facility]. Assistant Import Manager: Siva Litnon DCPIA - Discharge Planning Initial Assessment Updated by [id number]: Siva Linton on 06/18/18 10:01 am * Is the patient Alert and Oriented? Yes * How many steps to enter\exit or inside your home? 4 W/RAILS * PCP DR. GUZMÁN * [facility] * Preadmission Environment Home Alone * ADLs Independent * Equipment Cane Oxygen Rolling Walker * Other Equipment HOME AND PORT[facility]XYGEN [facility] * List name and contact numbers for known caregivers / representatives who currently or will assist patient after discharge: HAROON GUEVARA, DTR, * Verbal permission to speak to the caregivers and representatives has been obtained from the patient. N/A * Community resources currently utilized Other * Please name any agencies selected above. COMPRESSION MOLDING MACHINE SETTER, 1X EVERY 3-4 WEEKS * Additional services required to return to the preadmission environment? Yes * Can the patient safely return to the preadmission environment? Yes * Has this patient been hospitalized within the prior 30 days at any hospital? No Coverage Notice Reviewer: [id number] Noelle Linton Notice Issued Date-Time: 06/18/2018 9:50 Notice Type: IM Discharge Notice Notice Delivered To: Patient Relationship to Patient: Analytical Chemist Name: Delivery Method: HAND - Hand Delivered Palma Days: Prior Verbal Notification: Recipient Understood Notice: Yes Recipient Signature: Yes Med Rec Note Co-signed by Attending: Coverage Notice Comment: Last DP export: 06/19/18 10:16 Patient Name: RUSS NOGUEIRA Page [id number] at 0839 All edits/amendments must be made on the electronic document DICTATION DATE: 06/20/18837 ASSIGNMENT AGENT: JOHN PAUL 06/20/18837 RPT#: [id number] DC DATE:06/19/18 STATUS: DIS IN [facility] [address] [place] [address] END OF REPORT
--- NOTE | ~2018-06-13 | MORECARE ---
CASE MANAGEMENT DISCHARGE SUMMARY PATIENT: RUSS NOGUEIRA UNIT: [id number] ADM DATE: 06/13/18 AGE: 88 : 29 SEX: F ROOM/BED: D.3329 AUTHOR: HANS PENN PHYSICIAN: REFERRING PHYSICIAN: THUY GUZMÁN DO DATE OF SERVICE: 06/18/18 Discharge Plan Patient Name: RUSS NOGUEIRA Facility: [facility]:[place] : 1930 Planned Disposition: Inpatient Rehab Anticipated Discharge Date: 06/19/18 Discharge Date: Expected LOS: 6 Initial Reviewer: [id number] Initial Review Date: 06/18/2018 Generated: 06/18/18 11:22 am Comments DCP- Discharge Planning Updated by [id number]: Siva Linton on 06/18/18 9:[address] Patient Name: RUSS NOGUEIRA Admission Status: ER Accout number: [id number] Admission Date: 06-13-2018 : 1930 Admission Diagnosis:SHORTNESS OF BREATH Attending: Thuy Guzmán Current LOS: 5 Anticipated DC Date: 06-19-2018 Planned Disposition: Inpatient Rehab Primary Insurance: MEDICARE A & B PLANNED EXTERNAL PROVIDER: [facility] INPATIENT REHAB Discharge Planning Comments: CM RECEIVED ORDER FOR INPATIENT REHAB PRESCREENING, MET WITH PT IN ROOM TO DISCUSS DISCHARGE PLANNING AND NEEDS. PT REPORTS LIVING AT HOME INDEPENDENTLY AND ALONE. PT REPORTS HAVING A CANE, HOME AND PORTABLE OXYGEN AND ROLLING WALKER FROM [facility]. 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 CM DISCUSSED AVAILABILITY OF HOME HEALTH, REHAB SERVICES AND MEDICAL EQUIPMENT CM DISCUSSED REHAB PROVIDERS AND LOCATIONS. PT REPORTS SHE HAS BEEN TO [facility] IN THE PAST AND WOULD LIKE TO BE CONSIDERED FOR REHAB THERE AGAIN. PT REPORTS HER DAUGHTER WILL PICK HER UP FOR DISCHARGE HOME. IMPORTANT MESSAGE FROM MEDICARE PROVIDED AND EXPLAINED CM CALLED KORI OF [facility] INPATIENT REHAB, , LEFT MESSAGE ASKING FOR INPATIENT REHAB ADMISSION SCREENING. CM FAXED REFERRAL INFORMATION TO [facility] WITH CURRENT MAR AT [phone]. CM WAITING ADMISSION DETERMINATION FROM [facility] INPATIENT REH[facility]. 4Th Grade Teacher: Siva Linton DCPIA - Discharge Planning Initial Assessment Updated by [id number]: Siva Linton on 06/18/18 10:01 am * Is the patient Alert and Oriented? Yes * How many steps to enter\exit or inside your home? 4 W/RAILS * PCP DR. GUZMÁN * [facility] * Preadmission Environment Home Alone * ADLs Independent * Equipment Cane Oxygen Rolling Walker * Other Equipment HOME AND PORTABLE OXYGEN [facility] - PROVIDER * List name and contact numbers for known caregivers / representatives who currently or will assist patient after discharge: HAROON GUEVARA, DTR, * Verbal permission to speak to the caregivers and representatives has been obtained from the patient. N/A * Community resources currently utilized Other * Please name any agencies selected above. PHARMACY TECHNOLOGY INSTRUCTOR, 1X EVERY 3-4 WEEKS * Additional services required to return to the preadmission environment? Yes * Can the patient safely return to the preadmission environment? Yes * Has this patient been hospitalized within the prior 30 days at any hospital? No External Providers External Provider: [facility] Next Contact Date: 06/18/2018 Service Request Date: Service Type: Resolution: Reviewer: Comments: Coverage Notice Reviewer: [id number] - Siva Linton Notice Issued Date-Time: 06/18/2018 9:50 Notice Type: IM Discharge Notice Notice Delivered To: Patient Relationship to Patient: Button Maker And Installer Name: Delivery Method: HAND - Hand Delivered Palma Days: Prior Verbal Notification: Recipient Understood Notice: Yes Recipient Signature: Yes Med Rec Note Co-signed by Attending: Coverage Notice Comment: Last DP export: 06/18/18 9:05 Patient Name: RUSS NOGUEIRA Page [id number] at 1022 All edits/amendments must be made on the electronic document DICTATION DATE: 06/18/18 1022 CHAIR INSPECTOR: JOHN PAUL 06/18/18 1022 RPT#: [id number] DC DATE: STATUS: ADM IN [facility] [address] [place] [address] END OF REPORT
--- NOTE | ~2018-06-13 | HEMODYNAMI ---
PATIENT:RUSS NOGUEIRA MEDICAL RECORD: [id number] : 28 LOCATION:[address] ADMISSION DATE: 06/13/18 Generatedon:06/17/201811:12 Patient name: RUSS NOGUEIRA Patient #: [id number] SSN: : 1930 Date of study: 06/17/2018 Page: Of Hemodynamic Procedure Report Patient Data Patient Demographics Procedure consent was obtained First Name: RUSS Gender: Female Last Name: JERO : 1930 [facility] Initial: J Age: 88 year(s) Patient #: [id number] Race: Unknown Additional ID: [id number] Contact details Address: [address] [place] [address] [facility] State: [place] City: [facility] Zip code: [address] Past Medical History Allergies: No known allergies Admission Admission Data Admission Date: 06/13/2018 Admission Time: 19:38 Room #: D.2138 Procedure Procedure Types Cath Procedure Diagnostic Procedure Cardioversion External PPM/ICD PPM Dual Implant Procedure Description Procedure Date Procedure Date: 06/17/2018 Procedure Start Time: 10:20 Procedure End Time: 11:10 Procedure Staff Name Function Jose Miguel Dunbar MD Performing Physician Mason Farfan RN Nurse Valente Cordova RT Scrub Dwayne Whitfield RT Monitor Procedure Data Cath Procedure Fluoroscopy Diagnostic fluoroscopy Total fluoroscopy Time: 4.8 time: 4.8 min min Diagnostic fluoroscopy Total fluoroscopy dose: dose: 61.07 mGy 61.07 mGy Contrast Material Contrast Material Type Amount (ml) Visipaque 320 20 Estimated blood loss: 20 ml Procedure Medications Medication Administration Route Dosage 0.9% NaCl I.V. 100 ml/hr Oxygen NC 2 l/min Ancef (1Gm/50ml NS) I.V.P.B 1 g Ancef Irrigation 1 g (1gm/500ml NS) Benadryl I.V. 50 mg Versed I.V. 2 mg Fentanyl I.V. 75 mcg Lopressor I.V. 5 mg Versed I.V. 2 mg Fentanyl I.V. 50 mcg Lidocaine 1% added to field 40 Hemodynamics Rest Heart Rate: 120 (bpm) Snapshots Pre Cath Intra NCS Post Cath Vital Signs Time Heart Resp SPO2 etCO2 NIBP (mmHg) Rhythm Pain Sedation Rate (ipm) (%) (mmHg) Status Level (bpm) 10:01:15 121 17 98 0 169/87(117) A-Flutter 0 (11) 10(A) , No pain 10:05:49 120 37 97 0 163/88(118) A-Flutter 0 (11) 10(A) , No pain 10:10:20 120 14 97 0 158/89(115) A-Flutter 0 (11) 10(A) , No pain 10:14:46 117 18 97 0 167/92(114) A-Flutter 0 (11) 10(A) , No pain 10:19:17 117 16 98 0 162/94(121) A-Flutter 0 (11) 9(A) , No pain 10:23:45 116 18 98 0 162/91(122) A-Flutter 0 (11) 9(A) , No pain 10:28:13 93 23 98 0 162/92(114) A-Flutter 0 (11) 9(A) , No pain 10:32:39 116 15 98 0 165/96(129) A-Flutter 0 (11) 9(A) , No pain 10:37:04 117 18 97 0 151/97(124) A-Flutter 0 (11) 9(A) , No pain 10:41:26 70 17 98 0 160/106(127) A-Flutter 0 (11) 9(A) , No pain 10:45:54 104 16 98 0 164/86(135) A-Flutter 0 (11) 9(A) , No pain 10:51:08 95 24 99 0 161/105(129) A-Flutter 0 (11) 9(A) , No pain 10:55:34 94 31 98 0 150/90(123) A-Flutter 0 (11) 9(A) , No pain 11:00:49 100 27 99 0 161/106(133) Paced 0 (11) 9(A) , No pain 11:05:18 90 14 89 0 171/94(128) Paced 0 (11) 9(A) , No pain 11:09:44 90 14 93 0 157/89(119) Paced 0 (11) 9(A) , No pain Medications Time Medication Route Dose Verified Delivered Reason Notes Effectiv eness by by 10:03:25 0.9% NaCl I.V. 100 Mason Mason Per ml/hr Adolph Farfan physician RN RN 10:03:59 Oxygen NC 2 Mason Mason Per l/min Adolph Farfan physician RN RN 10:04:27 Ancef I.V.P.B 1 g Mason Mason Per (1Gm/50ml Lorigan Janetigan physician NS) RN RN 10:04:59 Ancef Topical 1 g Mason Mason used for Irrigation added Lorigan Lorigan procedure (1gm/500ml to RN RN NS) field 10:06:44 Lidocaine added 40ml Mason Mason for local 1% to vial Lorigan Lorigan anesthetic field RN RN 10:12:30 Benadryl I.V. 50 mg Mason Mason Per Lorigan Lorigan physician RN RN 10:17:34 Versed I.V. 2 mg Mason Mason for Lorigan Lorigan sedation RN RN 10:17:52 Fentanyl I.V. 75 Mason Mason for mcg Lorigan Lorigan sedation RN RN 10:39:48 Lopressor I.V. 5 mg Mason Mason for Lorigan Lorigan arrhythmia RN RN 11:01:07 Versed I.V. 2 mg Mason Mason for Lorigan Lorigan sedation RN RN 11:01:17 Fentanyl I.V. 50 Mason Mason for mcg Lorigan Lorigan sedation RN drawing kiln operator Log Time Note 9:25:47 Dwayne Whitfield RT(R) (CV) sent for patient. Start room use. 9:39:55 Time tracking: Regular hours (M-F 7:00 - 5:00) 9:39:59 Plan of Care:Hemodynamics will remain stable., Cardiac rhythm will remain stable., Comfort level will be maintained., Respiratory function will remain adequate., Patient/ family verbilizes understanding of procedure., Procedure tolerated without complication., Recovers from procedure without complications.. 9:40:07 Patient received from PCU to [facility] 3 Alert and oriented. Tansferred to table in Supine position. 9:40:09 Warm blankets applied, and wilma hugger turned on for patient comfort. 9:40:09 Correct patient and procedure confirmed by team. 9:40:12 Signed procedure consent form obtained from patient. 9:40:12 ECG and BP/O2 sat monitors applied to patient. 9:59:48 Vital chart was started 10:03:23 Baseline sample Acquired. 10:03:25 0.9% NaCl 100 ml/hr I.V. was administered by Mason Farfan RN; Per physician; 10:03:38 Rhythm: atrial fibrillation 10:03:41 Full Disclosure recording started 10:03:59 Oxygen 2 l/min NC was administered by Mason Farfan RN; Per physician; 10:04:22 H&P Date Dictated: 06/14/2018 Within 30 days and on chart.. 10:04:27 Ancef (1Gm/50ml NS) 1 g I.V.P.B was administered by Mason Farfan RN; Per physician; 10:04:41 Pre-procedure instructions explained to patient. 10:04:42 Pre-op teaching completed and patient verbalized understanding. 10:04:59 Ancef Irrigation (1gm/500ml NS) 1 g Topical added to field was administered by Mason Farfan RN; used for procedure; 10:04:59 PATIENT HARD OF HEARING 10:06:44 Lidocaine 1% 40ml vial added to field was administered by Mason Farfan RN; for local anesthetic; 10:07:00 Family in patients room. 10:07:03 Patient NPO since Midnight. 10:07:24 Patient allergic to No known allergies 10:07:27 Is the patient allergic to Iodine/contrast media? No. 10:09:03 Was the patient premedicated? Yes 10:09:56 Is patient on blood thinner?No 10:10:18 Patient not . Patient is over age 55. 10:10:19 ----Pre-sedation anethsthesia assessment.---- 10:10:28 Previous problem with sedation/anesthesia? No ? 10:10:35 Snore? Yes 10:10:36 Sleep apnea? No 10:10:38 Deviated septum? No 10:10:39 Opens mouth fully? Yes 10:10:40 Sticks out tongue? Yes 10:10:43 Airway obstruction? Yes ? 10:11:14 COPD 10:11:36 Dentures? Yes IN TIGHT 10:11:41 Patient pain scale 0/10 ?. 10:11:50 IV patent on arrival in left hand with 0.9% NaCl at [facility]. 10:11:59 Left chest area was prepped with chlora-prep and draped in sterile fashion 10:12:05 Alarms reviewed by R. N. 10:12:06 Sharps counted by scrub and verified by R.N. 10:12:30 Benadryl 50 mg I.V. was administered by Mason Farfan RN; Per physician; 10:14:34 MICROPUNCTURE 4FR Cook ([id number]) opened to sterile field. 10:14:35 MICROPUNCTURE 4FR Cook ([id number]) opened to sterile field. 10:14:36 PEELAWAY 7FR Safe Sheath (SU7) opened to sterile field. 10:14:36 PEELAWAY 7FR Safe Sheath (SU7) opened to sterile field. 10:14:37 Cautery Tip Co Op opened to sterile field. 10:14:38 Peak PlasmaBlade 3.0S ([id number]) opened to sterile field. 10:14:39 3-0 Vicryl Multipack [id number] opened to sterile field. 10:14:40 2-0 Silk 685H opened to sterile field. 10:14:40 2-0 Silk 685H opened to sterile field. 10:16:01 Physician arrived 10:16:02 --------ALL STOP TIME OUT------ 10:16:02 Final Timeout: patient, procedure, and site verified with staff and physician. All members of the team are in agreement. 10:16:10 Left chest site verified by team. 10:16:14 Physical assessment completed. ASA score P 2 - A patient with mild systemic disease as per Jose Miguel Dunbar MD. 10:16:18 Sedation plan: IV Moderate Sedation Medication:Versed, Fentanyl 10:17:34 Versed 2 mg I.V. was administered by Mason Farfan RN; for sedation; 10:17:52 Fentanyl 75 mcg I.V. was administered by Mason Farfan RN; for sedation; 10:18:11 Procedure started. 10:19:21 Medtronic event sales representative KYAW KAUR present for procedure. 10:19:51 Pre sharps counted by scrub and verified by RN: Sutures: 10; Sponges: 5; Stick needles: 4; Skin needles: 2; Blade: 1; Cautery: 1 10:19:56 Grounding pad site Right thigh. 10:19:58 Grounding pad site free from injury. 10:20:06 Lidocaine 2% was administered to left subclavicular area by Jose Miguel Dunbar MD . 10:20:12 Incision made to left subclavicular area. 10:27:28 Access obtained with 4Fr micropunture. 10:29:37 Access obtained with 4Fr micropunture. 10:30:22 Left subclavian vein accessed with 7Fr Peel Away Sheath. 10:31:43 Medtronic 4074-52 PPM Lead opened to sterile field. 10:31:51 Ventricular lead inserted and advanced. 10:31:55 Peel-a-way sheath was split and removed. 10:32:52 Medtronic 5076-45 PPM Lead opened to sterile field. 10:32:59 Atrial lead inserted and advanced. 10:33:01 Peel-a-way sheath was split and removed. 10:34:32 Ventricular lead positioned. 10:36:30 Ventricular lead tested. 10:37:56 Ventricular lead attachment was completed with 2-0 silk. 10:39:48 Lopressor 5 mg I.V. was administered by Mason Farfan RN; for arrhythmia; 10:40:32 Atrial lead positioned. 10:40:37 Atrial lead tested. 10:40:47 Atrial lead attachment was completed with 2-0 silk. 10:45:14 Medtronic Adapta PPM Dual Generator [id number] opened to sterile field. 10:45:28 PPM Dual was attached to lead(s) and inserted into pocket. 10:45:45 Device pocket was irrigated with Ancef. 10:47:16 Stapler Skin 35W Proximate Plus (PMW35) opened to sterile field. 10:47:39 Subcutaneous closure was completed with 3-0 vicryl plus. 10:49:23 Skin closure was completed with 35mm [place]. 11:00:36 PATIENT IS IN NEW ONSET A FLUTTER PREPARING FOR CARDIOVERSION 11:01:07 Versed 2 mg I.V. was administered by Mason Farfan RN; for sedation; 11:01:17 Fentanyl 50 mcg I.V. was administered by Mason Farfan RN; for sedation; 11:03:13 Procedure type changed to Cath procedure, Diagnostic procedure, Cardioversion External, PPM/ICD, PPM Dual Implant 11:04:14 ------Cardioversion------ 11:04:14 Quick combo pads placed on patients chest and back. 11:04:17 Defibrillator synced and charged to 200 Joules. 11:04:19 Shock delivered. 11:04:25 Patient cardioverted to sinus rhythm . 11:04:39 Procedure ended.(Physican Out) 11:04:47 Fluoroscopy time 04.80 minutes. 11:04:55 Flurop Dose total: 61.07 11:04:55 Fluoroscopy dose: 61.07 mGy 11:05:32 Contrast amount:Visipaque 320 20ml. 11:05:37 Sharps counted by scrub and verified by R.N. 11:08:10 Insertion/operative site no bleeding no hematoma. 11:08:20 Post left subclavian vein:stable 11:08:35 Post-procedure physical assessment completed. ASA score P 2 - A patient with mild systemic disease as per Jose Miguel Dunbar MD. 11:08:40 Estimated blood loss: 20 ml 11:10:13 Post procedure instruction explained to patient.Patient verbalizes understanding. 11:10:17 Patient needs reinforcement of post procedure teaching. 11:10:20 Procedure and supply charges have been captured, reviewed, submitted and are correct. 11:10:20 Vital chart was stopped 11:10:28 See physician's report for complete and final results. 11:10:33 Report given to Med II. 11:10:38 Patient transfered to Med II with Bed. 11:10:40 Procedure ended. 11:10:40 Full Disclosure recording stopped 11:10:44 End room use (Document Last) Device Usage Item Name Manufacture Quantity Catalog Hospital Part Current Minima l Lot# / Number Charge Number Stock Stock Serial# Code MICROPUNCTURE Cook Medical 2 [id number] [id number] 5 4FR Cook (D62627) PEELAWAY 7FR Microtek 2 SU7 656254 [id number] [id number] 10 Safe Sheath Medical Inc. (SU7) Cautery Tip Microtek 1 [id number] 488038 181779 767744 5 QuickBlox Inc. Peak Medtronic 1 [id number] 774828 977391 541647 5 PlasmaBlade 3.0S ([id number]) 3-0 Vicryl Ethicon 1 [id number] 492129 218340 875647 5 Multipack [id number] 2-0 Silk 685H Ethicon 2 685H 273538 19762 144964 5 Medtronic Medtronic 1 4074-52 726270 550605 5 [id number] 4074-52 PPM 04-01-2020 Lead Medtronic Medtronic 1 5076-45 676785 815873 5 [id number] 5076-45 PPM 04-04-2020 Lead Medtronic Medtronic 1 ADDR01 649872 755877 5 [id number] Adapta PPM 05-03-2019 Dual Generator ADDR01 Stapler Skin Unknown 1 PMW35 285923 083404 340725 5 35W Proximate Plus (PMW35) Signature Audit Loiza Stage Time Signature Unsigned Intra-Procedure 06/17/2018 Dwayne Whitfield 11:12:10 AM RT(R) (CV) Signatures Monitor : Dwayne Whitfield RT Signature : Date : Time : [address] [address]
--- NOTE | ~2018-06-13 | OP ---
PATIENT NAME: RUSS NOGUEIRA MEDICAL RECORD: [id number] :[birth year] LOCATION:D. D.2138 ADMISSION DATE:06/13/18 SURGEON: SHARRI ZHAO MD DATE OF OPERATION: 06/17/2018 PROCEDURE: Dual chamber pacemaker. INDICATIONS: Sick sinus syndrome. PROCEDURE IN DETAIL: The patient was brought to the cardiac catheterization lab in a stable condition, placed in supine position on the cath table. The patient had a left chest sterilely prepped and draped. The patient then utilizing sharp and blunt dissection had an incision over the left pectoral area to the prepectoral fascia. We were then able to perform a pocket with blunt dissection. We were then able to gain percutaneous access in the left subclavian vein utilizing dye venography. We were then able to deliver 2 leads percutaneously into the right ventricle and right atrium respectively, pass the lead into the right ventricle and active fixation lead into the right atrium. We were then able to verify appropriate pacing parameters. We were then able to suture the leads into the subpectoral fascia. We were then able to place the leads, connect it to the generator inside the pocket and closed in a multilayer fashion with varghese at the superficial aspect of the skin layer that was all done without any complications. The patient then had adequate programming and the patient then underwent DC cardioversion with biphasic delivery of energy from atrial flutter into sinus rhythm and into atrial pacing. The patient will be sent home with a sterile occlusive bandage for 7 days with antibiotics and then follow up for staple removal. TRANSINT:[id number] Voice Confirmation ID: [id number] DOCUMENT ID: [id number] SHARRI ZHAO MD at 0916 CC: [id number] DICTATION DATE: 06/17/18 1055 EMPLOYEE TRAINING SPECIALIST: 06/17/18 1126 DIS IN 06/19/18 [id number] [place] [address]
--- NOTE | ~2018-06-13 | MORECARE ---
CASE MANAGEMENT DISCHARGE SUMMARY PATIENT: RUSS NOGUEIRA J UNIT: [id number] ADM DATE: 06/13/18 AGE: 88 : 29 SEX: F ROOM/BED: D.2247 AUTHOR: HANS PENN PHYSICIAN: REFERRING PHYSICIAN: THUY GUZMÁN DO DATE OF SERVICE: 06/18/18 Discharge Plan Patient Name: RUSS NOGUEIRA Facility: [facility]:[place] : 1930 Planned Disposition: Inpatient Rehab Anticipated Discharge Date: 06/19/18 Discharge Date: Expected LOS: 6 Initial Reviewer: [email or web address] Initial Review Date: 06/18/2018 Generated: 06/18/18 11:05 am DCPIA - Discharge Planning Initial Assessment Updated by SREE: Siva Linton on 06/18/18 10:01 am * Is the patient Alert and Oriented? Yes * How many steps to enter\exit or inside your home? 4 W/RAILS * PCP DR. GUZMÁN * Pharmacy [facility] * Preadmission Environment Home Alone * ADLs Independent * Equipment Cane Oxygen Rolling Walker * Other Equipment HOME AND PORTABLE OXYGEN [facility] - PROVIDER * List name and contact numbers for known caregivers / representatives who currently or will assist patient after discharge: HAROON GUEVARA, DTR, * Verbal permission to speak to the caregivers and representatives has been obtained from the patient. N/A * Community resources currently utilized Other * Please name any agencies selected above. OPTICAL MANAGER, 1X EVERY 3-4 WEEKS * Additional services required to return to the preadmission environment? Yes * Can the patient safely return to the preadmission environment? Yes * Has this patient been hospitalized within the prior 30 days at any hospital? No Coverage Notice Reviewer: [id number] - Siva Linton Notice Issued Date-Time: 06/18/2018 9:50 Notice Type: IM Discharge Notice Notice Delivered To: Patient Relationship to Patient: Foster Care Worker Name: Delivery Method: HAND - Hand Delivered Palma Days: Prior Verbal Notification: Recipient Understood Notice: Yes Recipient Signature: Yes Med Rec Note Co-signed by Attending: Coverage Notice Comment: Patient Name: RUSS NOGUEIRA Page 95725 at 1005 All edits/amendments must be made on the electronic document DICTATION DATE: 06/18/181003 CLEARANCE REP: JOHN PAUL 06/18/181003 RPT#: [id number] DC DATE: STATUS: ADM IN [facility] [address] [place] [address] END OF REPORT
--- NOTE | ~2018-06-13 | MORECARE ---
CASE MANAGEMENT DISCHARGE SUMMARY PATIENT: RUSS NOGUEIRA UNIT: [id number] ADM DATE: 06/13/18 AGE: 88 : 29 SEX: F ROOM/BED: D.3471 AUTHOR: HANS PENN PHYSICIAN: REFERRING PHYSICIAN: GANGA GUZMÁN DO DATE OF SERVICE: 06/19/18 Discharge Plan Patient Name: RUSS NOGUEIRA Facility: [facility]:[place] : 1930 Planned Disposition: Inpatient Rehab Anticipated Discharge Date: 06/19/18 Discharge Date: Expected LOS: 6 Initial Reviewer: [email or web address] Initial Review Date: 06/18/2018 Generated: 06/19/18 12:16 pm Comments DCP- Discharge Planning Updated by [email or web address]: Siva Linton on 06/19/18 10:[address] Patient Name: RUSS NOGUEIRA Encounter No: [id number] : 1930 Primary Insurance: MEDICARE A & B Anticipated DC Date: 06-19-2018 Planned Disposition: Inpatient Rehab External Planned Provider: [facility] IN[facility]IENT [facility] DCP follow-up note: CM RECEIVED CALL FROM ERIC OF [facility] INPATIENT REHAB, THEY WILL ACCEPT PT TODAY IF DOCTOR IS READY TO DISCHARGE; PT AND DAUGHTER HAVE REQUESTED REHAB AT [facility]. CM MET WITH PT AND DAUGHTER HAROON GUEVARA IN ROOM. RUSS NOGUEIRA provided verbal consent to discuss current and ongoing needs with/in the presence of: HAROON GUEVARA. PT AND DAUGHTER BOTH IN AGREEMENT WITH DISCHARGE TO REHAB AT [facility]. PT WANTS PRIVATE ROOM, CM EXPLAINED THAT ROOMS ARE SEMI PRIVATE AND THAT CM CAN REQUEST PRIVATE ROOM FOR PT BUT THAT MIGHT NOT HAPPEN. PT AND DAUGHTER REPORT UNDERSTANDING AND WANT REHAB AT [facility]. CM NOTIFIED ERIC OF INPATIENT REHAB AT [facility]. CM CALLED KAYLI OF [facility] AND NOTIFIED TO CANCEL REFERRAL TO [facility]. CM CALLED DR. GUZMÁN'S OFFICE, NOTIFIED NURSE LUONG OF REHAB ACCEPTANCE AT [facility]. CM RECEIVED CALL FROM MARIBELL OF INPATIENT REHAB, PT WILL ADMIT TO ROOM 1115 AFTER LUNCH AND STAT CLEAN. PNEUMATIC TOOL OPERATOR NURSE, ABORIGINAL EDUCATION TEACHER AND PT NOTIFIED. WHEN DISCHARGED, NURSE REPORT TO BE CALLED TO INPATIENT REHAB AFTER LUNCH TODAY. PT TO ADMIT TO [facility] INPATIENT RE[facility], ROOM 1115. Siva Linton, CASE MANAGEMENT DCP- Discharge Planning Updated by [email or web address]: Siva Linton on 06/18/18 9:[address] Patient Name: RUSS NOGUEIRA Admission Status: ER Accout number: [id number] Admission Date: 06-13-2018 : 1930 Admission Diagnosis:SHORTNESS OF BREATH Attending: Ganga Guzmán Current LOS: 5 Anticipated DC Date: 06-19-2018 Planned Disposition: Inpatient Rehab Primary Insurance: MEDICARE A & B PLANNED EXTERNAL PROVIDER: [facility] INPATIENT REH[facility] Discharge Planning Comments: CM RECEIVED ORDER FOR INPATIENT REHAB PRESCREENING, MET WITH PT IN ROOM TO DISCUSS DISCHARGE PLANNING AND NEEDS. PT REPORTS LIVING AT HOME INDEPENDENTLY AND ALONE. PT REPORTS HAVING A CANE, HOME AND PORTABLE OXYGEN AND ROLLING WALKER FROM [facility]. PT HAS PRIVATE PAY [employer] THAT COMES IN ONCE EVERY THREE TO FOUR WEEKS. CM DISCUSSED AVAILABILITY OF HOME HEALTH, REHAB SERVICES AND MEDICAL EQUIPMENT CM DISCUSSED REHAB PROVIDERS AND LOCATIONS. PT REPORTS SHE HAS BEEN TO [facility] IN THE PAST AND WOULD LIKE TO BE CONSIDERED FOR REHAB THERE AGAIN. PT REPORTS HER DAUGHTER WILL PICK HER UP FOR DISCHARGE HOME. IMPORTANT MESSAGE FROM MEDICARE PROVIDED AND EXPLAINED CM CALLED KORI OF [facility] INPATIENT REH[facility], , LEFT MESSAGE ASKING FOR INPATIENT REHAB ADMISSION SCREENING. CM FAXED REFERRAL INFORMATION TO [facility] WITH CURRENT MAR AT [phone]. CM WAITING ADMISSION DETERMINATION FROM [facility] INPATIENT RE[facility]. Construction Craft Laborer: Siva Linton DCPIA - Discharge Planning Initial Assessment Updated by [id number]: Siva Linton on 06/18/18 10:01 am * Is the patient Alert and Oriented? Yes * How many steps to enter\exit or inside your home? 4 W/RAILS * PCP DR. GUZMÁN * Pharmacy [facility] * Preadmission Environment Home Alone * ADLs Independent * Equipment Cane Oxygen Rolling Walker * Other Equipment [facility] * List name and contact numbers for known caregivers / representatives who currently or will assist patient after discharge: HAROON GUEVARA, DTR, * Verbal permission to speak to the caregivers and representatives has been obtained from the patient. N/A * Community resources currently utilized Other * Please name any agencies selected above. [employer], 1X EVERY 3-4 WEEKS * Additional services required to return to the preadmission environment? Yes * Can the patient safely return to the preadmission environment? Yes * Has this patient been hospitalized within the prior 30 days at any hospital? No Coverage Notice Reviewer: [email or web address] Noelle Linton Notice Issued Date-Time: 06/18/2018 9:50 Notice Type: IM Discharge Notice Notice Delivered To: Patient Relationship to Patient: Market President Name: Delivery Method: HAND - Hand Delivered Palma Days: Prior Verbal Notification: Recipient Understood Notice: Yes Recipient Signature: Yes Med Rec Note Co-signed by Attending: Coverage Notice Comment: Last DP export: 06/19/18 9:57 Patient Name: RUSS NOGUEIRA Page 28959 at 1117 All edits/amendments must be made on the electronic document DICTATION DATE: 06/19/181115 REPAIRER SCREEN CRUSHER: JOHN PAUL 06/19/18 1116 RPT#: [id number] DC DATE: STATUS: ADM IN [facility] [address] [place] [address] END OF REPORT
[~2018-06-13 16:37] MED LIST changes: +CORDARONE200 MG PO; +MIRAPEX1 MG PO; +SYNTHROID137 MCG PO; +TYLENOL W/CODEI1 TAB PO
[2018-06-13] MEDS ORDERED: KLOR-CON 1010 MEQ PO (16:48)
[2018-06-13] MEDS ORDERED: MIRAPEX0.5 MG PO (16:48)
[2018-06-13] MEDS ORDERED: XARELTO15 MG PO (16:49)
[2018-06-13] MEDS ORDERED: TEMAZEPAM30 MG PO (16:49)
[2018-06-13] MEDS ORDERED: NEXIUM40 MG PO (16:49)
[2018-06-13] MEDS ORDERED: PACERONE400 MG PO (16:50)
[2018-06-13 17:46] LABS: BASOPHILS 0.2 % (0-2); EOSINOPHILS 0.1 % (0-7); IMMATURE GRANULOCYTES 0.4 % (0-5); LYMPHOCYTES 10.3 % (15-50); MCH 29.5 pg (26.0-34.0); MCHC 31.4 g/dL (31.0-37.0); MCV 93.8 fL (80.0-100.0); MONOCYTES 7.7 % (2-11); NEUTROPHILS 81.3 % (40-80); PLATELET COUNT 184 10x3/uL (130-400); RBC 3.73 10x6/uL (4.00-5.40); RDW 14.9 % (11.5-14.5); WBC 10.9 10x3/uL (4.8-10.8)
[2018-06-13 17:54] LABS: ALBUMIN 3.7 g/dL (3.4-5.0); ALKALINE PHOSPHATASE 71 U/L (46-116); ALT (SGPT) 40 U/L (10-68); BILIRUBIN - TOTAL 0.86 mg/dL (0.2-1.3); CALC OSMOLALITY 292 mosm/kg (275-300); CALCIUM 9.4 mg/dL (8.5-10.1); CARBON DIOXIDE 34.2 mmol/L (21.0-32.0); CHLORIDE - SERUM 102 mmol/L (98-107); CREATININE - SERUM 1.1 mg/dL (0.6-1.3); GLUCOSE 112 mg/dL (74-106); POTASSIUM - SERUM 3.6 mmol/L (3.5-5.1); SODIUM 144 mmol/L (136-145); UREA NITROGEN 26 mg/dL (7-18); eGFR NON AFRICAN AMERICAN 50 mL/min (90-120)
[2018-06-13 18:00] LABS: PRO BNP 648 pg/mL (0-450); TROPONIN-I < 0.017 ng/mL (0.000-0.060)
[2018-06-13 19:00] VITALS: BP 129/66
[2018-06-13 19:43] LABS: APPEARANCE CLEAR (CLEAR); BILIRUBIN NEGATIVE (NEGATIVE); COLOR YELLOW (YELLOW); GLUCOSE NEGATIVE (NEGATIVE); KETONE NEGATIVE (NEGATIVE); NITRITE NEGATIVE (NEGATIVE); PROTEIN NEGATIVE (NEGATIVE); UROBILINOGEN NORMAL (NORMAL)
[2018-06-13 20:24] VITALS: BP 162/61
[2018-06-13 22:53] VITALS: BP 150/73
[2018-06-14 01:18] VITALS: BP 111/50
[2018-06-14 06:15] VITALS: BP 121/55
[2018-06-14 11:21] VITALS: BP 124/64
[2018-06-14 13:13] VITALS: BP 106/37
[2018-06-14 13:41] VITALS: Ht 162.6 cm; Wt 83.4 kg
[2018-06-14 14:49] VITALS: BP 136/78
[2018-06-14 21:07] VITALS: BP 110/35
[2018-06-15] VITALS: BP 116/42
[2018-06-15 04:00] VITALS: BP 129/49
[2018-06-15 09:04] VITALS: BP 106/49
[2018-06-15 13:05] VITALS: BP 112/52
[2018-06-15 15:57] VITALS: BP 114/68
[2018-06-15 21:06] VITALS: BP 120/45
[2018-06-16 01:00] VITALS: BP 109/45
[2018-06-16 06:12] VITALS: BP 106/58
[2018-06-16 08:24] VITALS: BP 124/52
[2018-06-16 11:08] VITALS: BP 112/61
[2018-06-16 16:13] VITALS: BP 139/55
[2018-06-16 20:21] VITALS: BP 124/77
[2018-06-17 01:31] VITALS: BP 135/69
[2018-06-17 04:59] LABS: BASOPHILS 0 % (0-2); EOSINOPHILS 0 % (0-7); HEMATOCRIT 34.9 % (36.0-48.0); HEMOGLOBIN 11.6 g/dL (12-16); IMMATURE GRANULOCYTES 0.6 % (0-5); LYMPHOCYTES 3.5 % (15-50); MCH 30.1 pg (26.0-34.0); MCHC 33.2 g/dL (31.0-37.0); MCV 90.4 fL (80.0-100.0); MEAN PLATELET VOLUME 11.2 fL (7.4-10.4); MONOCYTES 2.3 % (2-11); NEUTROPHILS 93.6 % (40-80); RBC 3.86 10x6/uL (4.00-5.40); WBC 15.6 10x3/uL (4.8-10.8)
[2018-06-17 05:05] LABS: PLATELET COUNT 230 10x3/uL (130-400)
[2018-06-17 05:10] LABS: ANION GAP 8.8 mmol/L (8-16); CALCIUM 8.9 mg/dL (8.5-10.1); CARBON DIOXIDE 34.9 mmol/L (21.0-32.0); CREATININE - SERUM 1.7 mg/dL (0.6-1.3); MAGNESIUM - SERUM 2.1 mg/dL (1.8-2.4)
[2018-06-17 05:17] LABS: POTASSIUM - SERUM 2.7 mmol/L (3.5-5.1)
[2018-06-17 05:36] VITALS: BP 131/71
[2018-06-17 08:12] VITALS: BP 129/78
[2018-06-17 15:41] VITALS: BP 143/76
[2018-06-17 19:56] VITALS: BP 122/59
[2018-06-18] VITALS (7 sets, daily range): BP systolic 121–143; BP diastolic 53–75
[2018-06-18 05:22] LABS: BASOPHILS 0.1 % (0-2); EOSINOPHILS 0 % (0-7); HEMATOCRIT 36.1 % (36.0-48.0); HEMOGLOBIN 11.5 g/dL (12-16); IMMATURE GRANULOCYTES 0.8 % (0-5); LYMPHOCYTES 3.7 % (15-50); MCHC 31.9 g/dL (31.0-37.0); MCV 91.2 fL (80.0-100.0); MEAN PLATELET VOLUME 11.3 fL (7.4-10.4); MONOCYTES 3.5 % (2-11); NEUTROPHILS 91.9 % (40-80); PLATELET COUNT 207 10x3/uL (130-400); RBC 3.96 10x6/uL (4.00-5.40); RDW 14.8 % (11.5-14.5); WBC 13.6 10x3/uL (4.8-10.8)
[2018-06-18 05:49] LABS: ALBUMIN 2.9 g/dL (3.4-5.0); ANION GAP 10.6 mmol/L (8-16); BILIRUBIN - TOTAL 0.27 mg/dL (0.2-1.3); CARBON DIOXIDE 32.3 mmol/L (21.0-32.0); CREATININE - SERUM 1.6 mg/dL (0.6-1.3); MAGNESIUM - SERUM 2.4 mg/dL (1.8-2.4); PHOSPHOROUS 4.5 mg/dL (2.5-4.9); POTASSIUM - SERUM 3.9 mmol/L (3.5-5.1); PROTEIN - SERUM 6.3 g/dL (6.4-8.2)
[2018-06-19] VITALS: BP 150/63
[2018-06-19 04:00] VITALS: BP 148/60
[2018-06-19 08:30] VITALS: BP 142/70
[2018-06-19 11:28] VITALS: BP 136/65
[2018-06-19] MEDS ORDERED: MULTAQ400 MG PO (11:38)
== END 2018-06-19 16:07 | DRG 243 ==
LOC: D.ER 16:37 → D.M2 19:38
PROVIDERS: Emergency Medicine; Family Medicine; Internal Medicine Cardiovascular Disease
PROC: 02HK3JZ Insertion of Pacemaker Lead into Right Ventricle, Percutaneous Approach (ICD-10-PCS; 2018-06-17)
PROC: 0JH606Z Insertion of Pacemaker, Dual Chamber into Chest Subcutaneous Tissue and Fascia, Open Approach (ICD-10-PCS; principal; 2018-06-17 09:25)
PROC: 02H63JZ Insertion of Pacemaker Lead into Right Atrium, Percutaneous Approach (ICD-10-PCS; 2018-06-17 09:25)
DX: I49.5 Sick sinus syndrome (principal); I50.22 Chronic systolic (congestive) heart failure; I48.0 Paroxysmal atrial fibrillation; Z79.01 Long term (current) use of anticoagulants; J44.9 Chronic obstructive pulmonary disease, unspecified; R53.1 Weakness; E11.9 Type 2 diabetes mellitus without complications; K21.9 Gastro-esophageal reflux disease without esophagitis; F32.9 Major depressive disorder, single episode, unspecified

== ENCOUNTER 2018-06-19 15:46 | Inpatient (IN) | payer MEDICARE, OTHER ==
[~2018-06-19] VITALS: Ht 162.6 cm; Wt 83.5 kg
--- NOTE | ~2018-06-19 | RHP ---
PATIENT: RUSS NOGUEIRA MEDICAL RECORD: [id number] ACCOUNT: [id number] LOCATION:[facility]1108 : 28 ADMISSION DATE: 06/19/18 REHABILITATION HISTORY AND PHYSICAL EXAMINATION POST ADMISSION PHYSICIAN EXAMINATION DATE OF ADMISSION: 06/19/2018 ADMITTING DIAGNOSIS: Pacemaker secondary to sick sinus syndrome. HISTORY OF PRESENT ILLNESS: The patient was admitted to the inpatient rehab for pacemaker placement secondary to sick sinus. The patient admitted to the Emergency Room on 06/13/2018 with congestive heart failure. Apparently, the patient has been having increasing weakness, shortness of breath, difficulty being able to get around. The patient apparently has some difficulty with hearing, does not communicate well and has not been doing well with this. Ms. Nogueira is an 88-year-old female patient who presented with worsening shortness of breath, nonproductive cough and weakness. She is on chronic O2. Her sats were found to be in the low 80s. It was unknown whether she was actually using her portable O2 as she was supposed to. She was sent to the ER, she got a history of O2 dependence and coronary artery disease. Her sats had improved to the mid 90s on 4 liters of oxygen via nasal cannula. Her chest x-ray basically just shows some atelectasis. Her last echo showed a normal EF. It was suspected that her decompensation was due to paroxysmal atrial fib. On 06/17/2018, she had a dual-chamber pacemaker placed by Dr. Dunbar. Prior to this, she was living in her own home, was independent with ADLs and mobility. She is currently mod to max assist for ADLs and transfers with max assist with ambulation only of 6 feet with poor balance. She has 4 steps needed to enter her home. She is on home O2, impaired mobility. She is currently requiring telemetry at this time. She has got self-care deficit. These are all barriers to her discharge. She will require medical management for at least 3/5 days per week or more and will require 24-hour supervision and management with intensive therapy in order to get back to her prior level of function and hopefully return home. COMORBIDITIES: In this patient include sick sinus syndrome, pulmonary edema, congestive heart failure, dyspnea with congestive heart failure. PAST MEDICAL HISTORY: Significant for cochlear implants, diabetes, thyroid problems, atrial fib, COPD, home O2, acid reflux, depression. PAST SURGICAL HISTORY: Includes hysterectomy, appendectomy, left knee replacement and cochlear implants. ALLERGIES: No known drug allergies. CURRENT MEDICATIONS: Include Synthroid 25 mcg daily, she adds this to 112 which gives her a total of 137. She is on potassium 20 mEq daily, Protonix 40 mg daily, Cardizem 120 mg daily, Bumex 0.5 mg daily, Restoril 30 mg at bedtime, Xarelto 15 mg daily. She is on Mirapex 0.5 mg at bedtime, Multaq 400 b.i.d. with meals and Tylenol No. 3 as needed. HABITS: No alcohol or tobacco use. FAMILY HISTORY: Noncontributory. HISTORY AND PHYSICAL [id number] RUSS NOGUEIRA SOCIAL HISTORY: The patient hopes to return back home and get back to her prior level of functioning. REVIEW OF SYSTEMS: GENERAL: Does complain a little bit of weakness. HEENT: Denies cold, cough, or congestion. CARDIOVASCULAR: Denies chest pain. PHYSICAL EXAMINATION: VITAL SIGNS: Stable, afebrile. GENERAL: Elderly female, in no acute distress upon exam. HEENT: Normocephalic and atraumatic. Mucosa moist. NECK: Supple. No lymphadenopathy. LUNGS: Clear at this time. HEART: Irregular rate and rhythm. ABDOMEN: Benign. EXTREMITIES: No clubbing, cyanosis or edema. NEUROLOGIC: She does have noted proximal muscle weakness. LABORATORY DATA: White count is 12.6, H&H of 11.5 and 36.7 and platelet count is 171. Sodium 146, potassium is 3.7, BUN and creatinine of 45 and 1.2, and blood sugar is noted to be 97. ASSESSMENT: This is an 88-year-old female patient admitted to rehab with a working diagnosis of debility secondary to sick sinus syndrome and pacemaker placement. The patient has potential to make improvement. We instituted the following multidisciplinary therapies including, but not limited to physical, occupational, respiratory, speech, nutritional services, prosthetics and orthotics. Given her complex medical condition and risk for more complications, rehabilitation services cannot be provided at a low level of care such as fci facility. PLAN: 1. Admit to [facility] rehab for intensive inpatient therapy to include the following disciplines: A. Physical therapy to improve gait, all transfer skills and bed mobility to a modified independent level. B. Occupational therapy to a modified independent level. C. Case management to assist with discharge planning and placement options. D. Nutrition to assist with nutritional needs. E. Rehabilitation nursing to assist in monitoring the patient's underlying medical condition and to assist with any type of bowel or bladder management. 2. The patient's current medication and medical care will be continued. 3. The patient will be placed on standard fall precautions. 4. We will monitor her closely. Keep her on telemetry. 5. We will work on ambulating her and make sure that she does not desaturate or have any problems with balance. 6. I am going to discuss this patient with care team staff meeting this week. TRANSINT:[id number] Voice Confirmation ID: [id number] DOCUMENT ID: [id number] LÓPEZ notes whether there has been none or any medical/functional change since admission: HISTORY AND PHYSICAL [id number] RUSS NOGUEIRA - No change since prescreen. LÓPEZ attests patient continues to be appropriate for IRF: - Continues to be appropriate. THUY WELSH MD at 1404 CC: [id number] DICTATION DATE: 06/20/18 0906 PODIATRIC FOOT AND ANKLE SPECIALIST: 06/20/18 1002 ADM IN [facility] [address] [id number]
[~2018-06-19 15:46] MED LIST changes: +KLOR-CON 1010 MEQ PO; +MULTAQ400 MG PO; +PACERONE400 MG PO
[2018-06-19 15:50] VITALS: BP 156/74; BMI 31.6
[2018-06-19 19:00] VITALS: BP 156/74
[2018-06-20 06:39] LABS: BASOPHILS 0.2 % (0-2); EOSINOPHILS 1.5 % (0-7); HEMATOCRIT 36.7 % (36.0-48.0); HEMOGLOBIN 11.5 g/dL (12-16); IMMATURE GRANULOCYTES 2.8 % (0-5); LYMPHOCYTES 10.3 % (15-50); MCH 28.8 pg (26.0-34.0); MCHC 31.3 g/dL (31.0-37.0); MEAN PLATELET VOLUME 10.4 fL (7.4-10.4); NEUTROPHILS 77.2 % (40-80); PLATELET COUNT 171 10x3/uL (130-400); RBC 3.99 10x6/uL (4.00-5.40); WBC 12.6 10x3/uL (4.8-10.8)
[2018-06-20 06:51] LABS: ANION GAP 6.3 mmol/L (8-16); CALCIUM 8.5 mg/dL (8.5-10.1); CARBON DIOXIDE 34.4 mmol/L (21.0-32.0); CREATININE - SERUM 1.2 mg/dL (0.6-1.3); POTASSIUM - SERUM 3.7 mmol/L (3.5-5.1)
[2018-06-20 08:00] VITALS: BP 174/72
[2018-06-20 12:36] VITALS: Ht 162.6 cm; Wt 83.5 kg
[2018-06-20 19:00] VITALS: BP 142/57
[2018-06-21 05:30] LABS: BASOPHILS 0.1 % (0-2); EOSINOPHILS 2.7 % (0-7); HEMOGLOBIN 10.9 g/dL (12-16); IMMATURE GRANULOCYTES 2.9 % (0-5); MCH 29.6 pg (26.0-34.0); MCHC 32.1 g/dL (31.0-37.0); MCV 92.4 fL (80.0-100.0); MONOCYTES 7.3 % (2-11); PLATELET COUNT 175 10x3/uL (130-400); RBC 3.68 10x6/uL (4.00-5.40); WBC 10.7 10x3/uL (4.8-10.8)
[2018-06-21 05:39] LABS: ANION GAP 7.9 mmol/L (8-16); CALCIUM 8.8 mg/dL (8.5-10.1); POTASSIUM - SERUM 3.9 mmol/L (3.5-5.1)
[2018-06-21 08:00] VITALS: BP 156/63
[2018-06-21 19:15] VITALS: BP 117/49
[2018-06-22 20:00] VITALS: BP 121/58
[2018-06-23 12:06] VITALS: BP 114/57
[2018-06-23 19:30] VITALS: BP 118/59
[2018-06-24 06:47] LABS: BASOPHILS 0 % (0-2); EOSINOPHILS 2.4 % (0-7); HEMATOCRIT 34.6 % (36.0-48.0); HEMOGLOBIN 10.7 g/dL (12-16); IMMATURE GRANULOCYTES 2.2 % (0-5); LYMPHOCYTES 19.2 % (15-50); MCH 28.7 pg (26.0-34.0); MCHC 30.9 g/dL (31.0-37.0); MCV 92.8 fL (80.0-100.0); MEAN PLATELET VOLUME 10.5 fL (7.4-10.4); MONOCYTES 9.8 % (2-11); NEUTROPHILS 66.4 % (40-80); PLATELET COUNT 155 10x3/uL (130-400); RBC 3.73 10x6/uL (4.00-5.40); RDW 14.9 % (11.5-14.5); WBC 9.1 10x3/uL (4.8-10.8)
[2018-06-24 07:13] LABS: ANION GAP 7.9 mmol/L (8-16); CALCIUM 8.9 mg/dL (8.5-10.1); CREATININE - SERUM 1.1 mg/dL (0.6-1.3); POTASSIUM - SERUM 3.9 mmol/L (3.5-5.1)
[2018-06-24 08:00] VITALS: BP 127/38
[2018-06-24 21:19] VITALS: BP 122/45
[2018-06-25 08:26] VITALS: BP 130/49
[2018-06-25 19:00] VITALS: BP 130/49
[2018-06-26 06:45] LABS: BASOPHILS 0 % (0-2); EOSINOPHILS 1.6 % (0-7); HEMATOCRIT 31.9 % (36.0-48.0); HEMOGLOBIN 9.9 g/dL (12-16); IMMATURE GRANULOCYTES 1.1 % (0-5); LYMPHOCYTES 16.9 % (15-50); MCH 28.8 pg (26.0-34.0); MCV 92.7 fL (80.0-100.0); MEAN PLATELET VOLUME 10.2 fL (7.4-10.4); MONOCYTES 9.2 % (2-11); NEUTROPHILS 71.2 % (40-80); PLATELET COUNT 133 10x3/uL (130-400); RBC 3.44 10x6/uL (4.00-5.40); RDW 15.2 % (11.5-14.5); WBC 9.4 10x3/uL (4.8-10.8)
[2018-06-26 07:05] LABS: ANION GAP 9.1 mmol/L (8-16); CALCIUM 8.9 mg/dL (8.5-10.1); CARBON DIOXIDE 29.8 mmol/L (21.0-32.0); CREATININE - SERUM 1.2 mg/dL (0.6-1.3); POTASSIUM - SERUM 3.9 mmol/L (3.5-5.1)
[2018-06-26 08:00] VITALS: BP 139/61
[2018-06-26 19:00] VITALS: BP 155/62
[2018-06-27 08:00] VITALS: BP 135/52
[2018-06-27 20:40] VITALS: BP 149/58
[2018-06-28 07:59] LABS: BASOPHILS 0 % (0-2); EOSINOPHILS 1.9 % (0-7); HEMATOCRIT 34.1 % (36.0-48.0); HEMOGLOBIN 10.6 g/dL (12-16); IMMATURE GRANULOCYTES 0.5 % (0-5); LYMPHOCYTES 17.4 % (15-50); MCHC 31.1 g/dL (31.0-37.0); MCV 93.4 fL (80.0-100.0); MEAN PLATELET VOLUME 10.7 fL (7.4-10.4); MONOCYTES 8.9 % (2-11); NEUTROPHILS 71.3 % (40-80); PLATELET COUNT 124 10x3/uL (130-400); RBC 3.65 10x6/uL (4.00-5.40); RDW 15.5 % (11.5-14.5); WBC 7.8 10x3/uL (4.8-10.8)
[2018-06-28 08:02] VITALS: BP 152/65
[2018-06-28 08:12] LABS: ANION GAP 8.9 mmol/L (8-16); CALCIUM 9.2 mg/dL (8.5-10.1); CARBON DIOXIDE 30.4 mmol/L (21.0-32.0); CREATININE - SERUM 1.1 mg/dL (0.6-1.3); POTASSIUM - SERUM 4.3 mmol/L (3.5-5.1)
[2018-06-28 19:02] VITALS: BP 143/58
[2018-06-29 07:58] VITALS: BP 152/60
[2018-06-30 08:57] VITALS: BP 131/66
[2018-06-30 20:00] VITALS: BP 96/38
[2018-07-01 06:35] LABS: BASOPHILS 0.1 % (0-2); EOSINOPHILS 2.4 % (0-7); HEMATOCRIT 32.1 % (36.0-48.0); IMMATURE GRANULOCYTES 0.3 % (0-5); LYMPHOCYTES 18.5 % (15-50); MCH 28.5 pg (26.0-34.0); MCHC 31.2 g/dL (31.0-37.0); MCV 91.5 fL (80.0-100.0); MEAN PLATELET VOLUME 10.7 fL (7.4-10.4); MONOCYTES 8.4 % (2-11); NEUTROPHILS 70.3 % (40-80); PLATELET COUNT 136 10x3/uL (130-400); RBC 3.51 10x6/uL (4.00-5.40); RDW 15.6 % (11.5-14.5); WBC 7.2 10x3/uL (4.8-10.8)
[2018-07-01 06:50] LABS: ANION GAP 9.8 mmol/L (8-16); CALCIUM 8.7 mg/dL (8.5-10.1); CARBON DIOXIDE 29.3 mmol/L (21.0-32.0); CREATININE - SERUM 1.4 mg/dL (0.6-1.3); POTASSIUM - SERUM 4.1 mmol/L (3.5-5.1)
[2018-07-01 08:00] VITALS: BP 108/46
[2018-07-01 20:54] VITALS: BP 122/77
[2018-07-01 21:57] VITALS: BP 122/77
[2018-07-02 08:14] VITALS: BP 146/59
[2018-07-02] MEDS ORDERED: BUMETANIDE0.5 MG PO (10:14)
== END 2018-07-02 16:53 | disposition home or self-care (01) | DRG 309 ==
LOC: D.REHAB 15:46
PROVIDERS: Emergency Medicine
DX: I49.5 Sick sinus syndrome (principal); J81.1 Chronic pulmonary edema; I50.9 Heart failure, unspecified; R06.00 Dyspnea, unspecified; E11.9 Type 2 diabetes mellitus without complications; K21.9 Gastro-esophageal reflux disease without esophagitis; Z99.81 Dependence on supplemental oxygen; Z95.0 Presence of cardiac pacemaker

== ENCOUNTER → 2018-07-18 17:43 | Outpatient (CLI) | payer MEDICARE, OTHER ==
[2018-06-20 12:36] VITALS: BMI 31.6
[2018-07-18 18:42] LABS: ANION GAP 10.3 mmol/L (8-16); CALCIUM 8.9 mg/dL (8.5-10.1); CARBON DIOXIDE 29.1 mmol/L (21.0-32.0); CREATININE - SERUM 1.8 mg/dL (0.6-1.3); POTASSIUM - SERUM 4.4 mmol/L (3.5-5.1)
== END | disposition home or self-care (01) ==
LOC: D.LABREF 17:43
PROVIDERS: Internal Medicine Cardiovascular Disease
DX: I25.10 Atherosclerotic heart disease of native coronary artery without angina pectoris (principal)

== ENCOUNTER 2018-11-07 12:51 | Inpatient (IN) | payer MEDICARE, OTHER ==
[~2018-11-07] VITALS: Ht 162.6 cm; Wt 74.8 kg
[2018-11-07 16:37] LABS: BASOPHILS 0.1 % (0-2); EOSINOPHILS 0.7 % (0-7); HEMATOCRIT 35.9 % (36.0-48.0); HEMOGLOBIN 11.3 g/dL (12-16); IMMATURE GRANULOCYTES 0.3 % (0-5); LYMPHOCYTES 8.8 % (15-50); MCH 26.5 pg (26.0-34.0); MCHC 31.5 g/dL (31.0-37.0); MCV 84.1 fL (80.0-100.0); MEAN PLATELET VOLUME 10.1 fL (7.4-10.4); NEUTROPHILS 83.1 % (40-80); PLATELET COUNT 192 10x3/uL (130-400); RBC 4.27 10x6/uL (4.00-5.40); RDW 17.8 % (11.5-14.5); WBC 13.9 10x3/uL (4.8-10.8)
[2018-11-07 17:07] LABS: ALBUMIN 3.6 g/dL (3.4-5.0); ANION GAP 10.5 mmol/L (8-16); BILIRUBIN - TOTAL 0.41 mg/dL (0.2-1.3); CALCIUM 9.4 mg/dL (8.5-10.1); CREATININE - SERUM 1.4 mg/dL (0.6-1.3); MAGNESIUM - SERUM 2.3 mg/dL (1.8-2.4); POTASSIUM - SERUM 3.5 mmol/L (3.5-5.1); PROTEIN - SERUM 7.2 g/dL (6.4-8.2)
--- NOTE | 2018-11-07 17:50 | NUR ---
PT RECIEVED FROM ER TO ROOM 2228 VIA STRETCHER. ALERT AND ORIENTED. PT IS EXTREMEMLY GAMBELL, HAVING COCHLEAR IMPLANTS. REPORTS PAIN 10/10 AT THIS TIME. SALINE LOC TO RIGHT WRIST INTACT AND PATENT. LEG IMMOBILIZER TO LEFT LOWER EXTREMITY. PPPX4. ORIENTED TO CL, BED CONTROLS, AND ROOM. ENCOURAGED PT TO CALL STAFF FOR ASSISTANCE. WILL CONTINUE TO MONITOR.
[2018-11-07 17:53] VITALS: BP 157/55; BMI 28.4
--- NOTE | 2018-11-07 18:27 | MORECARE ---
CASE MANAGEMENT DISCHARGE SUMMARY PATIENT: RUSS NOGUEIRA UNIT: [id number] ADM DATE: 11/07/18 AGE: 88 : 29 SEX: F ROOM/BED: D.2229 AUTHOR: HANS PENN PHYSICIAN: REFERRING PHYSICIAN: MARI MORTENSEN MD DATE OF SERVICE: 11/07/18 Discharge Plan Patient Name: RUSS NOGUEIRA Facility: [facility]:[place] : 1930 Planned Disposition: Snf Facility Anticipated Discharge Date: 11/12/18 Discharge Date: Expected LOS: 5 Initial Reviewer: [email or web address] Initial Review Date: 11/07/2018 Generated: 11/07/18 7:27 pm Patient Name: RUSS NOGUEIRA Page [id number] at 1827 All edits/amendments must be made on the electronic document DICTATION DATE: 11/07/181826 BOARD OPERATOR: JOHN PAUL 11/07/181826 RPT#: [id number] DC DATE: STATUS: ADM IN [facility] [address] [place] [address] END OF REPORT
--- NOTE | 2018-11-07 18:47 | MORECARE ---
CASE MANAGEMENT DISCHARGE SUMMARY PATIENT: RUSS NOGUEIRA UNIT: [id number] ADM DATE: 11/07/18 AGE: 88 : 29 SEX: F ROOM/BED: D.2229 AUTHOR: HANS PENN PHYSICIAN: REFERRING PHYSICIAN: MARI MORTENSEN MD DATE OF SERVICE: 11/07/18 Discharge Plan Patient Name: RUSS NOGUEIRA Facility: [facility]:[place] : 1930 Planned Disposition: Fci Facility Anticipated Discharge Date: 11/12/18 Discharge Date: Expected LOS: 5 Initial Reviewer: [email or web address] Initial Review Date: 11/07/2018 Generated: 11/07/18 7:46 pm DCPIA - Discharge Planning Initial Assessment Updated by [email or web address]: Soco Trevino on 11/07/18 6:41 pm * Is the patient Alert and Oriented? Yes * How many steps to enter\exit or inside your home? * PCP Dr. Ganga Reeves * Pharmacy [facility] * Preadmission Environment Home Alone * Equipment Oxygen Rolling Walker Wheelchair * Other Equipment Grab Bars Oxygen 24/7 with portability * List name and contact numbers for known caregivers / representatives who currently or will assist patient after discharge: Sherry Aguilar - r - [phone] Rachel Diana [phone] * Verbal permission to speak to the caregivers and representatives has been obtained from the patient. Yes * Community resources currently utilized Home Health * Please name any agencies selected above. [facility] * Additional services required to return to the preadmission environment? Yes * Can the patient safely return to the preadmission environment? No * Has this patient been hospitalized within the prior 30 days at any hospital? Yes Last DP export: 11/07/18 5:27 p Patient Name: RUSS NOGUEIRA Page [id number] at 1847 All edits/amendments must be made on the electronic document DICTATION DATE: 11/07/181845 AUTOMATIC DIE CUTTING MACHINE OPERATOR: JOHN PAUL 11/07/181845 RPT#: [id number] DC DATE: STATUS: ADM IN [facility] [address] [place] [address] END OF REPORT
--- NOTE | 2018-11-07 18:53 | MORECARE ---
CASE MANAGEMENT DISCHARGE SUMMARY PATIENT: RUSS NOGUEIRA UNIT: [id number] ADM DATE: 11/07/18 AGE: 88 : 29 SEX: F ROOM/BED: D.2229 AUTHOR: HANS PENN PHYSICIAN: REFERRING PHYSICIAN: MARI MORTENSEN MD DATE OF SERVICE: 11/07/18 Discharge Plan Patient Name: RUSS NOGUEIRA Facility: [facility]:[place] : 1930 Planned Disposition: Nursing Home Facility Anticipated Discharge Date: 11/12/18 Discharge Date: Expected LOS: 5 Initial Reviewer: [email or web address] Initial Review Date: 11/07/2018 Generated: 11/07/18 7:53 pm DCP- Discharge Planning Updated by [email or web address]: Soco Trevino on 11/07/18 5:[address] Patient Name: RUSS NOGUEIRA Admission Status: ER Accout number: [id number] Admission Date: 11-07-2018 : 1930 Admission Diagnosis: Attending: MARI MORTENSEN Current LOS: 1 Anticipated DC Date: 11-12-2018 Planned Disposition: Nursing Home Facility Primary Insurance: MEDICARE A & B Discharge Planning Comments: CM met with patient and her daughter, Rachel to complete initial dc planning assessment. Patient very hard of hearing and Rachel answered assessment questions. CM educated Rachel on the CM role and verbal consent given by daughter to complete assessment. Patient lives at home alone and has been independent in her care at home. She was using a walker for ambulatory aide and wears oxygen 24/7 with portability. Her DME provider is unknown. Patient currently has [facility] and wishes to resume at discharge if she is able to return home. YUNIEL form signed by patient's daughter for resumption of [facility]. Signed form placed in chart and signed form given to patient's daughter. At discharge patient's daughter is not sure if patient will be able to return home alone. CM discussed rehab options with her. CM will continue to follow and will assist as needed with dc plans/needs. Hand Glass Cutter: Soco Trevino RN, [facility] DCPIA - Discharge Planning Initial Assessment Updated by [email or web address]: Soco Trevino on 11/07/18 6:41 pm * Is the patient Alert and Oriented? Yes * How many steps to enter\exit or inside your home? * PCP Dr. Ganga Reeves * [facility]acy [facility] * Preadmission Environment Home Alone * Equipment Oxygen Rolling Walker Wheelchair * Other Equipment Grab Bars Oxygen 24/7 with portability * List name and contact numbers for known caregivers / representatives who currently or will assist patient after discharge: Sherry Aguilar - dtr - [phone] Rachel Ceres - [phone] * Verbal permission to speak to the caregivers and representatives has been obtained from the patient. Yes * Community resources currently utilized Home Health * Please name any agencies selected above. [facility] * Additional services required to return to the preadmission environment? Yes * Can the patient safely return to the preadmission environment? No * Has this patient been hospitalized within the prior 30 days at any hospital? Yes Last DP export: 11/07/18 5:47 p Patient Name: RUSS NOGUEIRA Page 25352 at 1853 All edits/amendments must be made on the electronic document DICTATION DATE: 11/07/181852 COLLECTIONS ASSISTANT: JOHN PAUL 11/07/181852 RPT#: [id number] DC DATE: STATUS: ADM IN [facility] [address] [place] [address] END OF REPORT
[2018-11-07 20:00] VITALS: BP 133/52
--- NOTE | 2018-11-07 20:00 | NUR ---
PT SITTING UP IN BED, NO SIGNS OF DISTRESS. ALERT AND ORIENTED. VERY HARD OF HEARING, HAS COCHLEAR IMPLANTS. IV RIGHT WRIST SL, DRESSING CDI. LEFT KNEE IN IMMOBILIZER. FALL PRECAUTIONS IN PLACE. SHARONA ON. STATES PAIN 410, DENIES NEED FOR PAIN MEDICINE AT THIS TIME. CL IN REACH,WILL CONT TO MONITOR
[2018-11-08] VITALS (7 sets, daily range): BP systolic 109–165; BP diastolic 42–57; Ht 162.6 cm; Wt 74.8 kg
--- NOTE | 2018-11-08 03:00 | NUR ---
ASSISTED PT ONTO BEDPAN. PT VOIDED AND HAD BM. OFFERED PT PAIN MEDICINE SINCE WE HAD TO MOVE HER AROUND, PT DENIES NEED FOR IT. STATES PAIN 11/27. WILL CONT TO MONITOR
[2018-11-08 04:23] LABS: HEMATOCRIT 35.5 % (36.0-48.0); HEMOGLOBIN 11.1 g/dL (12-16); MCH 26.7 pg (26.0-34.0); MCHC 31.3 g/dL (31.0-37.0); MCV 85.5 fL (80.0-100.0); MEAN PLATELET VOLUME 10.5 fL (7.4-10.4); PLATELET COUNT 162 10x3/uL (130-400); RBC 4.15 10x6/uL (4.00-5.40); RDW 17.8 % (11.5-14.5); WBC 11.4 10x3/uL (4.8-10.8)
[2018-11-08 04:40] LABS: ALBUMIN 3.4 g/dL (3.4-5.0); ANION GAP 10.3 mmol/L (8-16); BILIRUBIN - TOTAL 0.53 mg/dL (0.2-1.3); CARBON DIOXIDE 31.5 mmol/L (21.0-32.0); CREATININE - SERUM 1.2 mg/dL (0.6-1.3); POTASSIUM - SERUM 3.8 mmol/L (3.5-5.1); PROTEIN - SERUM 6.5 g/dL (6.4-8.2)
[2018-11-08 05:15] LABS: EOSINOPHILS 2 % (0-7); LYMPHOCYTES 11 % (15-50); MONOCYTES 6 % (2-11); NEUTROPHILS 81 % (40-80); PLATELET ESTIMATE NORMAL
--- NOTE | 2018-11-08 07:53 | NUR ---
ALERT AND ORIENTED WITH KASHIA NOTED WITH COCHLEAR IMPLANT. PEDAL PULSES NOTED BILATERAL WITH CAP REFILL <3 SEC. PACEMAKER NOTED WITH HR SR ON AUSCULTATION. FALL PRECAUTIONS IN PLACE AND ENCOURAGED TO USE CALL LLIGHT FOR ASSIST.
--- NOTE | 2018-11-08 12:24 | MORECARE ---
CASE MANAGEMENT DISCHARGE SUMMARY PATIENT: RUSS NOGUEIRA UNIT: [id number] ADM DATE: 11/07/18 AGE: 88 : 29 SEX: F ROOM/BED: D.2229 AUTHOR: HANS PENN PHYSICIAN: REFERRING PHYSICIAN: MARI MORTENSEN MD DATE OF SERVICE: 11/08/18 Discharge Plan Patient Name: RUSS NOGUEIRA Facility: [facility]:[place] : 1930 Planned Disposition: Longterm Facility Anticipated Discharge Date: 11/12/18 Discharge Date: Expected LOS: 5 Initial Reviewer: [email or web address] Initial Review Date: 11/07/2018 Generated: 11/08/18 1:23 pm Comments DCP- Discharge Planning Updated by [email or web address]: Ailyn Garcia on 11/08/18 11:[address] Spoke with patient. She states she would like to go home when discharged from acute care, but states "I know I'll need rehab first." I discussed the difference between inpatient rehab and skilled. She states she would like a referral to inpatient rehab, however states she is in too much pain to rehab at this time. I spoke with Jonas and requested he give her some pain medication. Rehab prescreening ordered. CM will continue to follow and assist with discharge planning/needs. DCP- Discharge Planning Updated by [email or web address]: Soco Trevino on 11/07/18 5:[address] Patient Name: RUSS NOGUEIRA Admission Status: ER Accout number: [id number] Admission Date: 11-07-2018 : 1930 Admission Diagnosis: Attending: MARI MORTENSEN Current LOS: 1 Anticipated DC Date: 11-12-2018 Planned Disposition: Longterm Facility Primary Insurance: MEDICARE A & B Discharge Planning Comments: CM met with patient and her daughter, Rachel to complete initial dc planning assessment. Patient very hard of hearing and Rachel answered assessment questions. CM educated Rachel on the CM role and verbal consent given by daughter to complete assessment. Patient lives at home alone and has been independent in her care at home. She was using a walker for ambulatory aide and wears oxygen 24/7 with portability. Her DME provider is unknown. Patient currently has [facility] and wishes to resume at discharge if she is able to return home. YUNIEL form signed by patient's daughter for resumption of [facility]. Signed form placed in chart and signed form given to patient's daughter. At discharge patient's daughter is not sure if patient will be able to return home alone. CM discussed rehab options with her. CM will continue to follow and will assist as needed with dc plans/needs. Hadoop Administrator: Soco Trevino RN, [facility] DCPIA - Discharge Planning Initial Assessment Updated by [email or web address]: Soco Trevino on 11/07/18 6:41 pm * Is the patient Alert and Oriented? Yes * How many steps to enter\\exit or inside your home? * PCP Dr. Ganga Reeves * [facility]acy [facility] * Preadmission Environment Home Alone * Equipment Oxygen Rolling Walker Wheelchair * Other Equipment Grab Bars Oxygen 24/7 with portability * List name and contact numbers for known caregivers / representatives who currently or will assist patient after discharge: Sherry Aguilar - dtr - [phone] Rachel Diana - [phone] * Verbal permission to speak to the caregivers and representatives has been obtained from the patient. Yes * Community resources currently utilized Home Health * Please name any agencies selected above. [facility] * Additional services required to return to the preadmission environment? Yes * Can the patient safely return to the preadmission environment? No * Has this patient been hospitalized within the prior 30 days at any hospital? Yes Last DP export: 11/07/18 5:53 p Patient Name: RUSS NOGUEIRA Page 45613 at 1224 All edits/amendments must be made on the electronic document DICTATION DATE: 11/08/18 1223 [employer] ARCHITECT: JOHN PAUL 11/08/183 RPT#: [id number] DC DATE: STATUS: ADM IN [facility] [address] [place] [address] END OF REPORT
--- NOTE | 2018-11-08 14:23 | NUR ---
Rehab Note- Acute INpatient Rehab prescreen order received. The patient is still having an acute work up for a femur fracture w/ an ortho consult. Will continue to follow at this time. Thank you for this referral! Pamela Nelson RN Clinical Liaison, [facility] Rehab
--- NOTE | 2018-11-08 19:00 | NUR ---
REPORT RECEIVED AND CARE OF PT ASSUMED. PT LYING IN SUPINE POSITION WITH EYES CLOSED. IV IN RIGHT WRIST SALINE LOCKED. RIGHT SCD IN PLACE. SPLINT IN PLACE ON LEFT LEG. WILL MONITOR FOR NEEDS.
--- NOTE | 2018-11-08 22:00 | NUR ---
HS MEDICATIONS GIVEN TO INCLUDE MORPHINE PER REQUEST FOR PAIN.
--- NOTE | 2018-11-08 22:30 | NUR ---
IV LEAKING...REMOVED WITH CATHETER TIP INTACT. RE-SITED TO LEFT FA BY DUKE HEBERT LPN USING 22 GUAGE CATHETER.
[2018-11-09 04:00] VITALS: BP 120/41
[2018-11-09 05:07] LABS: BASOPHILS 0.2 % (0-2); EOSINOPHILS 3.4 % (0-7); HEMATOCRIT 31.6 % (36.0-48.0); HEMOGLOBIN 9.7 g/dL (12-16); IMMATURE GRANULOCYTES 0.3 % (0-5); LYMPHOCYTES 15.8 % (15-50); MCH 26.5 pg (26.0-34.0); MCHC 30.7 g/dL (31.0-37.0); MCV 86.3 fL (80.0-100.0); MEAN PLATELET VOLUME 10.8 fL (7.4-10.4); MONOCYTES 11.8 % (2-11); NEUTROPHILS 68.5 % (40-80); PLATELET COUNT 168 10x3/uL (130-400); RBC 3.66 10x6/uL (4.00-5.40); RDW 18.2 % (11.5-14.5); WBC 9.1 10x3/uL (4.8-10.8)
[2018-11-09 05:20] LABS: ANION GAP 8.8 mmol/L (8-16); BILIRUBIN - TOTAL 0.36 mg/dL (0.2-1.3); CALCIUM 8.8 mg/dL (8.5-10.1); CARBON DIOXIDE 31.8 mmol/L (21.0-32.0); CREATININE - SERUM 1.3 mg/dL (0.6-1.3); POTASSIUM - SERUM 3.6 mmol/L (3.5-5.1); PROTEIN - SERUM 6.1 g/dL (6.4-8.2)
[2018-11-09 09:04] VITALS: BP 148/47
--- NOTE | 2018-11-09 10:26 | NUR ---
ALERT AND ORIENTED AND VERY [place]. SPLINT INTACT TO LLE. DENIES ANY PAIN OR DISCOMFORT AT THIS TIME. REPOSITIOND FOR COMFORT. ENCOURAGED TO USE CALL LIGHT FOR ASSIST
[2018-11-09 14:14] VITALS: BP 120/40
[2018-11-09 17:53] VITALS: BP 152/65
--- NOTE | 2018-11-09 19:00 | NUR ---
REPORT RECEIVED AND CARE OF PT ASSUMED. PT LYING IN SUPINE POSITION WITH EYES CLOSED. IV IN LEFT FA SALINE LOCKED. O2 IN USE VIA NC AT 2L. WILL MONITOR FOR NEEDS. PT VERY [place] WITH COCHLEAR IMPLANTS.
[2018-11-09 20:00] VITALS: BP 119/58
--- NOTE | 2018-11-09 21:40 | NUR ---
HS MEDICATIONS GIVEN TO INCLUDE MORPHINE PER REQUEST FOR PAIN. WILL MONITOR FOR EFFECTIVENESS.
[2018-11-10] VITALS: BP 110/45
[2018-11-10 04:00] VITALS: BP 114/42
[2018-11-10 05:11] LABS: BASOPHILS 0.2 % (0-2); EOSINOPHILS 3.4 % (0-7); HEMATOCRIT 30.9 % (36.0-48.0); HEMOGLOBIN 9.5 g/dL (12-16); IMMATURE GRANULOCYTES 0.4 % (0-5); LYMPHOCYTES 16.9 % (15-50); MCH 26.5 pg (26.0-34.0); MCHC 30.7 g/dL (31.0-37.0); MCV 86.1 fL (80.0-100.0); MEAN PLATELET VOLUME 10.7 fL (7.4-10.4); MONOCYTES 10.3 % (2-11); NEUTROPHILS 68.8 % (40-80); PLATELET COUNT 164 10x3/uL (130-400); RBC 3.59 10x6/uL (4.00-5.40); RDW 17.5 % (11.5-14.5); WBC 9.3 10x3/uL (4.8-10.8)
[2018-11-10 05:39] LABS: ALBUMIN 2.7 g/dL (3.4-5.0); ANION GAP 7.1 mmol/L (8-16); BILIRUBIN - TOTAL 0.31 mg/dL (0.2-1.3); CALCIUM 8.7 mg/dL (8.5-10.1); CARBON DIOXIDE 32.7 mmol/L (21.0-32.0); CREATININE - SERUM 1.1 mg/dL (0.6-1.3); POTASSIUM - SERUM 3.8 mmol/L (3.5-5.1)
[2018-11-10 10:15] VITALS: BP 125/48
--- NOTE | 2018-11-10 10:18 | NUR ---
ALERT AND ORIENTED AND CACHIL DEHE WITH HEARING AID. PEDAL PULSES NOTED WITH HEELS FLOATED. SLINT INTACT TO LLEFT LEG. DENIES ANY PAIN OR DISCOMFORT AT THIS TIME. SCD INTACT TO RLE. SL INTACT TO LT. F/A. ENCOURAGED TO USE CALL LIGHT FOR ASSIST.
[2018-11-10 13:46] VITALS: BP 118/38
[2018-11-10 17:35] VITALS: BP 143/35
--- NOTE | 2018-11-10 19:00 | NUR ---
REPORT RECEIVED AND CARE OF PT ASSUMED. PT LYING IN SUPINE POSITION WITH EYES CLOSED. PT VERY [place] WITH COCHLEAR IMPLANTS. IV IN RIGHT FA SALINE LOCKED. SCD'S IN PLACE. WILL MONITOR FOR NEEDS.
[2018-11-10 20:00] VITALS: BP 105/72; BP 146/41
[2018-11-11] VITALS: BP 131/43
[2018-11-11 04:00] VITALS: BP 142/54
[2018-11-11 05:22] LABS: HEMATOCRIT 32.1 % (36.0-48.0); HEMOGLOBIN 9.8 g/dL (12-16); MCH 26.7 pg (26.0-34.0); MCHC 30.5 g/dL (31.0-37.0); MCV 87.5 fL (80.0-100.0); MEAN PLATELET VOLUME 10.2 fL (7.4-10.4); PLATELET COUNT 164 10x3/uL (130-400); RBC 3.67 10x6/uL (4.00-5.40); RDW 18.2 % (11.5-14.5); WBC 6.8 10x3/uL (4.8-10.8)
[2018-11-11 05:42] LABS: ALBUMIN 2.7 g/dL (3.4-5.0); ANION GAP 8.7 mmol/L (8-16); BILIRUBIN - TOTAL 0.39 mg/dL (0.2-1.3); CARBON DIOXIDE 30.4 mmol/L (21.0-32.0); POTASSIUM - SERUM 4.1 mmol/L (3.5-5.1); PROTEIN - SERUM 6.1 g/dL (6.4-8.2)
[2018-11-11 07:07] LABS: EOSINOPHILS 4 % (0-7); LYMPHOCYTES 24 % (15-50); MONOCYTES 5 % (2-11); NEUTROPHILS 67 % (40-80); PLATELET ESTIMATE NORMAL
--- NOTE | 2018-11-11 08:10 | NUR ---
PATIENT ALERT AND ORIENTED X 3. COCHLEAR IMPLANT TO LEFT EAR NOTED. LUNGS CLEAR BILATERALLY. HEART SOUNDS HEARD S1 AND S2 IN ALL CHICAS. HR REGULAR RATE AND RHYTHM. SKIN INTACT. OLD BRUISING NOTED TO BUE. DISCOLORATION NOTED TO BLE, MORE PRONOUNCED TO LEFT LOWER LEFT. BRACE NOTED TO LEFT LEG FOR FEMUR FRACTURE. BLOOD PRESSURE WNL. MEDICATIONS GIVEN WITHOUT DIFFICULTY. RFA IV PATENT WITHOUT REDNESS OR S/SX INFECTION. STATES NO PAIN. DENIES NEEDS. WILL CONTINUE TO MONITOR.
[2018-11-11 08:55] VITALS: BP 169/59
--- NOTE | 2018-11-11 10:00 | NUR ---
PATIENT SITTING UP IN CHAIR PER PT. DENIES NEEDS. DENIES PAIN. WILL CONTINUE TO MONITOR
--- NOTE | 2018-11-11 10:35 | NUR ---
Reviewed this patients chart this morning. She is not a surgical candidate. She has not been able to participate with therapy secondary to pain. At this time she is not appropriate for the ARU as we are a short stay program and she will need longer convalescence according to notes. Bridgette Muhammad RN Clinical Liaison, Rehab
--- NOTE | 2018-11-11 11:49 | MORECARE ---
CASE MANAGEMENT DISCHARGE SUMMARY PATIENT: RUSS NOGUEIRA UNIT: [id number] ADM DATE: 11/07/18 AGE: 88 : 29 SEX: F ROOM/BED: D.2229 AUTHOR: HANS PENN PHYSICIAN: REFERRING PHYSICIAN: MARI MORTENSEN MD DATE OF SERVICE: 11/11/18 Discharge Plan Patient Name: RSUS NOGUEIRA Facility: [facility]:[place] : 1930 Planned Disposition: Alf Facility Anticipated Discharge Date: 11/12/18 Discharge Date: Expected LOS: 5 Initial Reviewer: [email or web address] Initial Review Date: 11/07/2018 Generated: 11/11/18 12:49 pm Comments DCP- Discharge Planning Updated by [email or web address]: Ailyn Garcia on 11/11/18 10:[address] Patient sitting up in chair. I informed her that our inpatient rehab has stated that she may need a longer term rehab, such as a skilled facility. At this time, she is wanting a referral to [facility], states she has been there before. I spoke with Luz Elena and clinical faxed. CM will continue to follow and assist with discharge planning/needs. DCP- Discharge Planning Updated by [email or web address]: Ailyn aGrcia on 11/08/18 11:[address] Spoke with patient. She states she would like to go home when discharged from acute care, but states "I know I'll need rehab first." I discussed the difference between inpatient rehab and skilled. She states she would like a referral to inpatient rehab, however states she is in too much pain to rehab at this time. I spoke with Jonas and requested he give her some pain medication. Rehab prescreening ordered. CM will continue to follow and assist with discharge planning/needs. DCP- Discharge Planning Updated by [email or web address]: Soco Trevino on 11/07/18 5:[address] Patient Name: RUSS NOGUEIRA Admission Status: ER Accout number: [id number] Admission Date: 11-07-2018 : 1930 Admission Diagnosis: Attending: MARI MORTENSEN Current LOS: 1 Anticipated DC Date: 11-12-2018 Planned Disposition: Alf Facility Primary Insurance: MEDICARE A & B Discharge Planning Comments: CM met with patient and her daughter, Rachel to complete initial dc planning assessment. Patient very hard of hearing and Rachel answered assessment questions. CM educated Rachel on the CM role and verbal consent given by daughter to complete assessment. Patient lives at home alone and has been independent in her care at home. She was using a walker for ambulatory aide and wears oxygen 24/7 with portability. Her DME provider is unknown. Patient currently has [facility] and wishes to resume at discharge if she is able to return home. YUNIEL form signed by patient's daughter for resumption of [facility]. Signed form placed in chart and signed form given to patient's daughter. At discharge patient's daughter is not sure if patient will be able to return home alone. CM discussed rehab options with her. CM will continue to follow and will assist as needed with dc plans/needs. Pbx Supervisor: Soco Trevino RN, [facility] DCPIA - Discharge Planning Initial Assessment Updated by [email or web address]: Soco Trevino on 11/07/18 6:41 pm * Is the patient Alert and Oriented? Yes * How many steps to enter\\exit or inside your home? * PCP Dr. Ganga Reeves * Pharmacy [facility] * Preadmission Environment Home Alone * Equipment Oxygen Rolling Walker Wheelchair * Other Equipment Grab Bars Oxygen 24/7 with portability * List name and contact numbers for known caregivers / representatives who currently or will assist patient after discharge: Sherry Aguilar - dtr - [phone] Rachel [place] - [phone] * Verbal permission to speak to the caregivers and representatives has been obtained from the patient. Yes * Community resources currently utilized Home Health * Please name any agencies selected above. [facility] * Additional services required to return to the preadmission environment? Yes * Can the patient safely return to the preadmission environment? No * Has this patient been hospitalized within the prior 30 days at any hospital? Yes External Providers External Provider: [facility] Next Contact Date: Service Request Date: Service Type: Resolution: Reviewer: Comments: Last DP export: 11/08/18 11:23 a Patient Name: RUSS NOGUEIRA Page [id number] at 1149 All edits/amendments must be made on the electronic document DICTATION DATE: 11/11/181148 PRISON LIBRARIAN: JOHN PAUL 11/11/18 114 RPT#: [id number] DC DATE: STATUS: ADM IN [facility] [address] [place] [address] END OF REPORT
--- NOTE | 2018-11-11 12:00 | NUR ---
USED BEDPAN IN CHAIR. LARGE BM NOTED. PATIENT PLACED BACK IN BED BY RN AND PT PER REQUEST. WILL CONTINUE TO MONITOR
[2018-11-11 13:00] VITALS: BP 167/53
--- NOTE | 2018-11-11 13:29 | NUR ---
NUTRITION F/U CHART REVIEWED. PT SLEEPING. TOLERATING AHA DIET WITH 75 TO 100% INTAKE RECENT MEALS. WILL CONTINUE TO PROVIDE DIET, MONITOR PO INTAKE. RD FOLLOWING
--- NOTE | 2018-11-11 15:48 | NUR ---
ASSISTED TO BEDPAN. LINENS AND GOWNS CHANGED R/T SOILED. SCD TURNED BACK ON TO RIGHT LEG. DENIES PAIN. DENIES NEEDS. WILL CONTINUE TO MONITOR.
[2018-11-11 16:00] VITALS: BP 145/53
--- NOTE | 2018-11-11 16:10 | NUR ---
REASSESSED BP MANUALLY. 145/58. OLD IV TO LFA REMOVED PER PT REQUEST WITH NO DIFFICULTIES. IV CATHETER INTACT. IV TO RFA STILL PATENT WITHOUT REDNESS. WILL CONTINUE TO MONITOR.
--- NOTE | 2018-11-11 16:18 | NUR ---
OT NOTE: PT COMPLETED BUE AROM FOR INCREASED I WITH ADLS. THANK YOU, JASMYNE HUGHES
--- NOTE | 2018-11-11 16:33 | NUR ---
MEDICATIONS GIVEN WITHOUT DIFFICULTY. DENIES PAIN. DENIES NEEDS. DAUGHTER AT BEDSIDE. WILL CONTINUE TO MONITOR.
--- NOTE | 2018-11-11 18:42 | NUR ---
RESTING IN BED. DENIES PAIN. DENIES NEEDS.
[2018-11-11 20:00] VITALS: BP 131/46
--- NOTE | 2018-11-11 20:30 | NUR ---
PT SITTING UP IN BED, NO SIGNS OF DISTRESS. ALERT AND ORIENTED. DENIES PAIN. LEG LEG IN SPLINT. PLACED ON AND OFF BEDPAN. IV RIGHT FA SL, FLUSHES EASILY. SCD RIGHT LEG. SHARONA ON. QHS MEDS GIVEN W/O DIFFICULTY. NO COMPLAINTS AT THIS TIME. CL IN REACH, WILL CONT TO MONITOR
[2018-11-12 04:00] VITALS: BP 128/44
[2018-11-12 06:30] LABS: BASOPHILS 0.1 % (0-2); EOSINOPHILS 3.3 % (0-7); HEMATOCRIT 31.6 % (36.0-48.0); HEMOGLOBIN 9.5 g/dL (12-16); IMMATURE GRANULOCYTES 0.4 % (0-5); LYMPHOCYTES 17.9 % (15-50); MCH 26.2 pg (26.0-34.0); MCHC 30.1 g/dL (31.0-37.0); MCV 87.1 fL (80.0-100.0); MEAN PLATELET VOLUME 10.8 fL (7.4-10.4); MONOCYTES 9.2 % (2-11); NEUTROPHILS 69.1 % (40-80); PLATELET COUNT 182 10x3/uL (130-400); RBC 3.63 10x6/uL (4.00-5.40); RDW 17.8 % (11.5-14.5); WBC 8.4 10x3/uL (4.8-10.8)
[2018-11-12 06:58] LABS: ALBUMIN 2.7 g/dL (3.4-5.0); ANION GAP 8.4 mmol/L (8-16); BILIRUBIN - TOTAL 0.39 mg/dL (0.2-1.3); CALCIUM 8.9 mg/dL (8.5-10.1); CARBON DIOXIDE 32.6 mmol/L (21.0-32.0); CREATININE - SERUM 1.1 mg/dL (0.6-1.3); PROTEIN - SERUM 6.1 g/dL (6.4-8.2)
[2018-11-12] MEDS ORDERED: HYDROCODON-ACE1 EAC7 PO (07:25)
--- NOTE | 2018-11-12 08:46 | NUR ---
ALERT AND ORIENTED X3. LUNGS CLEAR BILATERALLY. HEART SOUNDS HEARD AT S1 AND S2 IN ALL CHICAS. BOWEL SOUNDS HEARD X4. STATES NO PROBLEM WITH BOWEL MOVEMENTS. SKIN INTACT WITHOUT REDNESS. IV TO RFA PATENT WITHOUT REDNESS. DENIES PAIN. DENIES NEEDS AT THIS TIME. MEDICATIONS GIVEN WITHOUT DIFFICULTY. WILL CONTINUE TO MONITOR.
[2018-11-12 08:52] VITALS: BP 131/38
--- NOTE | 2018-11-12 10:48 | MORECARE ---
CASE MANAGEMENT DISCHARGE SUMMARY PATIENT: RUSS NOGUEIRA UNIT: [id number] ADM DATE: 11/07/18 AGE: 88 : 29 SEX: F ROOM/BED: D.2229 AUTHOR: ISAMAR,DOC PHYSICIAN: REFERRING PHYSICIAN: MARI MORTENSEN MD DATE OF SERVICE: 11/12/18 Discharge Plan Patient Name: RUSS NOGUEIRA Facility: [facility]:[place] : 1930 Planned Disposition: Assisted Facility Anticipated Discharge Date: 11/12/18 Discharge Date: Expected LOS: 5 Initial Reviewer: [email or web address] Initial Review Date: 11/07/2018 Generated: 11/12/18 11:48 am Comments DCP- Discharge Planning Updated by [email or web address]: Ailyn Garcia on 11/12/18 9:[address] Luz Elena called and states they will accept the patient today to [facility]. I called and notified Carlyle (Dr. Gifford's BURIAL VAULT DELIVERER AND INSTALLER). I informed the patient and she agrees with discharge. I called her daughter (Sherry) per patient request to inform her and reached her answering machine and left a message with my return phone number. Anticipate discharge today to [facility]. DCP- Discharge Planning Updated by [email or web address]: Ailyn Garcia on 11/11/18 10:[address] Patient sitting up in chair. I informed her that our inpatient rehab has stated that she may need a longer term rehab, such as a skilled facility. At this time, she is wanting a referral to [facility], states she has been there before. I spoke with Luz Elena and clinical faxed. CM will continue to follow and assist with discharge planning/needs. DCP- Discharge Planning Updated by [id number]: Ailyn Garcia on 11/08/18 11:[address] Spoke with patient. She states she would like to go home when discharged from acute care, but states "I know I'll need rehab first." I discussed the difference between inpatient rehab and skilled. She states she would like a referral to inpatient rehab, however states she is in too much pain to rehab at this time. I spoke with Jonas and requested he give her some pain medication. Rehab prescreening ordered. CM will continue to follow and assist with discharge planning/needs. DCP- Discharge Planning Updated by [id number]: Soco Trevino on 11/07/18 5:[address] Patient Name: RUSS NOGUEIRA Admission Status: ER Accout number: [id number] Admission Date: 11-07-2018 : 1930 Admission Diagnosis: Attending: MARI MORTENSEN Current LOS: 1 Anticipated DC Date: 11-12-2018 Planned Disposition: Assisted Facility Primary Insurance: MEDICARE A & B Discharge Planning Comments: CM met with patient and her daughter, Rachel to complete initial dc planning assessment. Patient very hard of hearing and Rachel answered assessment questions. CM educated Rachel on the CM role and verbal consent given by daughter to complete assessment. Patient lives at home alone and has been independent in her care at home. She was using a walker for ambulatory aide and wears oxygen 24/7 with portability. Her DME provider is unknown. Patient currently has [facility] and wishes to resume at discharge if she is able to return home. YUNIEL form signed by patient's daughter for resumption of [facility]. Signed form placed in chart and signed form given to patient's daughter. At discharge patient's daughter is not sure if patient will be able to return home alone. CM discussed rehab options with her. CM will continue to follow and will assist as needed with dc plans/needs. Chief Radiology: Soco Trevino RN, [facility] DCPIA - Discharge Planning Initial Assessment Updated by [email or web address]: Soco Trevino on 11/07/18 6:41 pm * Is the patient Alert and Oriented? Yes * How many steps to enter\\exit or inside your home? * PCP Dr. Ganga Reeves * Pharmacy [facility] * Preadmission Environment Home Alone * Equipment Oxygen Rolling Walker Wheelchair * Other Equipment Grab Bars Oxygen 24/7 with portability * List name and contact numbers for known caregivers / representatives who currently or will assist patient after discharge: Sherry Aguilar - dtr - [phone] Rachel [place] - [phone] * Verbal permission to speak to the caregivers and representatives has been obtained from the patient. Yes * Community resources currently utilized Home Health * Please name any agencies selected above. [facility] * Additional services required to return to the preadmission environment? Yes * Can the patient safely return to the preadmission environment? No * Has this patient been hospitalized within the prior 30 days at any hospital? Yes Coverage Notice Reviewer: [id number] Noelle Garcia Notice Issued Date-Time: 11/12/2018 10:33 Notice Type: IM Discharge Notice Notice Delivered To: Patient Relationship to Patient: Self Art Objects Repairer Name: Delivery Method: HAND - Hand Delivered Palma Days: Prior Verbal Notification: Recipient Understood Notice: Yes Recipient Signature: Yes Med Rec Note Co-signed by Attending: Coverage Notice Comment: IMM explained, signed, given, copy placed in MR Last DP export: 11/11/18 10:49 a Patient Name: RUSS NOGUEIRA Page [id number] at 1048 All edits/amendments must be made on the electronic document DICTATION DATE: 11/12/18 1048 CENTRAL COMMUNICATIONS SPECIALIST: JOHN PAUL 11/12/18 1048 RPT#: [id number] DC DATE: STATUS: ADM IN [facility] [address] [place] [address] END OF REPORT
[2018-11-12] MEDS ORDERED: MIRALAX17 GM PO (10:59)
--- NOTE | 2018-11-12 11:02 | NUR ---
PATIENT RESTING IN BED. DENIES NEEDS. DENIES PAIN. WILL CONTINUE TO MONITOR.
[2018-11-12 13:49] VITALS: BP 153/47
--- NOTE | 2018-11-12 14:11 | NUR ---
DISCHARGE EDUCATION PROVIDED BOTH VERBALLY AND WRITTEN. PATIENT VERBALIZED UNDERSTANDING. DAUGHTER AT BEDSIDE VERBALIZED UNDERSTANDING. IV TO RFA REMOVED WITH CATHETER INTACT WITHOUT COMPLICATIONS. ALL BELONGINGS SENT WITH PATIENT. DENIES FURTHER NEEDS. DENIES QUESTIONS. DISCHARGED TO [facility].
--- NOTE | 2018-11-14 10:23 | MORECARE ---
CASE MANAGEMENT DISCHARGE SUMMARY PATIENT: RUSS NOGUEIRA UNIT: [id number] ADM DATE: 11/07/18 AGE: 88 : 29 SEX: F ROOM/BED: D.2229 AUTHOR: HANS PENN PHYSICIAN: REFERRING PHYSICIAN: MARI MORTENSEN MD DATE OF SERVICE: 11/14/18 Discharge Plan Patient Name: RUSS NOGUEIRA Facility: [facility]:[place] : 1930 Planned Disposition: Mcfp Facility Anticipated Discharge Date: 11/12/18 Discharge Date: 11/12/2018 Expected LOS: 5 Initial Reviewer: [email or web address] Initial Review Date: 11/07/2018 Generated: 11/14/18 11:23 am Comments DCP- Discharge Planning Updated by [email or web address]: Ailyn Garcia on 11/12/18 9:[address] Luz Elena called and states they will accept the patient today to [facility]. I called and notified Carlyle (Dr. Gifford's SOFTWARE LICENSING EXECUTIVE). I informed the patient and she agrees with discharge. I called her daughter (Sherry) per patient request to inform her and reached her answering machine and left a message with my return phone number. Anticipate discharge today to [facility]. DCP- Discharge Planning Updated by [email or web address]: Aiyln Garcia on 11/11/18 10:[address] Patient sitting up in chair. I informed her that our inpatient rehab has stated that she may need a longer term rehab, such as a skilled facility. At this time, she is wanting a referral to [facility], states she has been there before. I spoke with Luz Elena and clinical faxed. CM will continue to follow and assist with discharge planning/needs. DCP- Discharge Planning Updated by [email or web address]: Ailyn Garcia on 11/08/18 11:[address] Spoke with patient. She states she would like to go home when discharged from acute care, but states "I know I'll need rehab first." I discussed the difference between inpatient rehab and skilled. She states she would like a referral to inpatient rehab, however states she is in too much pain to rehab at this time. I spoke with Jonas and requested he give her some pain medication. Rehab prescreening ordered. CM will continue to follow and assist with discharge planning/needs. DCP- Discharge Planning Updated by [email or web address]: Soco Uriel on 11/07/18 5:[address] Patient Name: RUSS NOGUEIRA Admission Status: ER Accout number: [id number] Admission Date: 11-07-2018 : 1930 Admission Diagnosis: Attending: MARI MORTENSEN Current LOS: 1 Anticipated DC Date: 11-12-2018 Planned Disposition: Mcfp Facility Primary Insurance: MEDICARE A & B Discharge Planning Comments: CM met with patient and her daughter, Rachel to complete initial dc planning assessment. Patient very hard of hearing and Rachel answered assessment questions. CM educated Rachel on the CM role and verbal consent given by daughter to complete assessment. Patient lives at home alone and has been independent in her care at home. She was using a walker for ambulatory aide and wears oxygen 24/7 with portability. Her DME provider is unknown. Patient currently has [facility] and wishes to resume at discharge if she is able to return home. YUNIEL form signed by patient's daughter for resumption of [facility]. Signed form placed in chart and signed form given to patient's daughter. At discharge patient's daughter is not sure if patient will be able to return home alone. CM discussed rehab options with her. CM will continue to follow and will assist as needed with dc plans/needs. Director Of Academic: Soco Trevino RN, [facility] DCPIA - Discharge Planning Initial Assessment Updated by [email or web address]: Soco Trevino on 11/07/18 6:41 pm * Is the patient Alert and Oriented? Yes * How many steps to enter\\exit or inside your home? * PCP Dr. Ganga Reeves * Pharmacy [facility] * Preadmission Environment Home Alone * Equipment Oxygen Rolling Walker Wheelchair * Other Equipment Grab Bars Oxygen 24/7 with portability * List name and contact numbers for known caregivers / representatives who currently or will assist patient after discharge: Sherry Aguilar - dtr - [phone] Rachel [place] - [phone] * Verbal permission to speak to the caregivers and representatives has been obtained from the patient. Yes * Community resources currently utilized Home Health * Please name any agencies selected above. [facility] * Additional services required to return to the preadmission environment? Yes * Can the patient safely return to the preadmission environment? No * Has this patient been hospitalized within the prior 30 days at any hospital? Yes Coverage Notice Reviewer: [id number] Noelle Garcia Notice Issued Date-Time: 11/12/2018 10:33 Notice Type: IM Discharge Notice Notice Delivered To: Patient Relationship to Patient: Self Electric Deicer Assembler Name: Delivery Method: HAND - Hand Delivered Palma Days: Prior Verbal Notification: Recipient Understood Notice: Yes Recipient Signature: Yes Med Rec Note Co-signed by Attending: Coverage Notice Comment: IMM explained, signed, given, copy placed in MR Last DP export: 11/12/18 9:48 a Patient Name: RUSS NOGUEIRA Page 04191 at 1023 All edits/amendments must be made on the electronic document DICTATION DATE: 11/14/18 1022 SECURITY OPERATIONS CENTER ANALYST: JOHN PAUL 11/14/18 1022 RPT#: [id number] DC DATE:11/12/18 STATUS: DIS IN [facility] [address] [place] [address] END OF REPORT
== END 2018-11-12 14:34 | DRG 559 ==
LOC: D.ER 12:51 → D.MS 16:26 → D.EDHOLD 16:26 → D.MS 16:44
PROVIDERS: Emergency Medicine; ADMIT Family Medicine; ATTEND Family Medicine
DX: M97.12XA Periprosthetic fracture around internal prosthetic left knee joint, initial encounter (principal); S79.012A Salter-Harris Type I physeal fracture of upper end of left femur, initial encounter for closed fracture; J96.11 Chronic respiratory failure with hypoxia; I50.32 Chronic diastolic (congestive) heart failure; E11.65 Type 2 diabetes mellitus with hyperglycemia; I48.91 Unspecified atrial fibrillation; J44.9 Chronic obstructive pulmonary disease, unspecified; K21.9 Gastro-esophageal reflux disease without esophagitis

== ENCOUNTER 2018-12-29 11:01 | Observation (INO) | payer MEDICARE, OTHER ==
[~2018-12-29] VITALS: Ht 162.6 cm; Wt 74.8 kg
[~2018-12-29 11:01] MED LIST changes: +HYDROCODON-ACE1 EAC7 PO; +MIRALAX17 GM PO
[2018-12-29 13:12] LABS: BASOPHILS 0.1 % (0-2); HEMATOCRIT 35.3 % (36.0-48.0); HEMOGLOBIN 11.3 g/dL (12-16); IMMATURE GRANULOCYTES 0.3 % (0-5); LYMPHOCYTES 13.4 % (15-50); MCH 27.9 pg (26.0-34.0); MCV 87.2 fL (80.0-100.0); MEAN PLATELET VOLUME 9.7 fL (7.4-10.4); MONOCYTES 9.3 % (2-11); NEUTROPHILS 75.9 % (40-80); PLATELET COUNT 187 10x3/uL (130-400); RBC 4.05 10x6/uL (4.00-5.40); RDW 17.4 % (11.5-14.5); WBC 9.5 10x3/uL (4.8-10.8)
[2018-12-29 13:24] LABS: ALBUMIN 3.3 g/dL (3.4-5.0); ANION GAP 11.5 mmol/L (8-16); BILIRUBIN - TOTAL 0.49 mg/dL (0.2-1.3); CALCIUM 9.2 mg/dL (8.5-10.1); CARBON DIOXIDE 27.2 mmol/L (21.0-32.0); CREATININE - SERUM 1.2 mg/dL (0.6-1.3); POTASSIUM - SERUM 3.7 mmol/L (3.5-5.1); PROTEIN - SERUM 6.7 g/dL (6.4-8.2)
[2018-12-29 13:32] LABS: APPEARANCE CLEAR (CLEAR); BILIRUBIN NEGATIVE (NEGATIVE); COLOR STRAW (YELLOW); GLUCOSE NEGATIVE (NEGATIVE); KETONE NEGATIVE (NEGATIVE); NITRITE NEGATIVE (NEGATIVE); PROTEIN NEGATIVE (NEGATIVE); SPECIFIC GRAVITY 1.005 (1.005-1.020); UROBILINOGEN NORMAL (NORMAL)
[2018-12-29 14:59] VITALS: BP 142/78
[2018-12-29] MEDS ORDERED: HYDROCHLOROTHIA25 MG PO (15:08)
--- NOTE | 2018-12-29 15:45 | MORECARE ---
CASE MANAGEMENT DISCHARGE SUMMARY PATIENT: RUSS NOGUEIRA UNIT: [id number] ADM DATE: 12/29/18 AGE: 88 : 29 SEX: F ROOM/BED: D.2220 AUTHOR: HANS PENN PHYSICIAN: REFERRING PHYSICIAN: JOVANI EL MD DATE OF SERVICE: 12/29/18 Discharge Plan Patient Name: RUSS NOGUEIRA Facility: [facility]:[place] : 1930 Planned Disposition: Fpc Facility Anticipated Discharge Date: 12/30/18 Discharge Date: Expected LOS: 1 Initial Reviewer: [email or web address] Initial Review Date: 12/29/2018 Generated: 12/29/18 4:45 pm Patient Name: RUSS NOGUEIRA Page 20363 at 1547 All edits/amendments must be made on the electronic document DICTATION DATE: 12/29/18 1545 COW WASHER: JOHN PAUL 12/29/18 1545 RPT#: [id number] DC DATE: STATUS: ADM IN [facility] [address] [place] [address] END OF REPORT
--- NOTE | 2018-12-29 16:00 | MORECARE ---
CASE MANAGEMENT DISCHARGE SUMMARY PATIENT: RUSS FAIRBANKS UNIT: [id number] ADM DATE: 12/29/18 AGE: 88 : 29 SEX: F ROOM/BED: D.2220 AUTHOR: ISAMARDOC PHYSICIAN: REFERRING PHYSICIAN: JOVANI EL MD DATE OF SERVICE: 12/29/18 Discharge Plan Patient Name: RUSS FAIRBANKS Facility: [facility]:[place] : 1930 Planned Disposition: Intermediate Facility Anticipated Discharge Date: 12/30/18 Discharge Date: Expected LOS: 1 Initial Reviewer: [email or web address] Initial Review Date: 12/29/2018 Generated: 12/29/18 4:59 pm DCP- Discharge Planning Updated by [email or web address]: Soco Trevino on 12/29/18 2:[address] Patient Name: RUSS FAIRBANKS Admission Status: ER Accout number: [id number] Admission Date: 12-29-2018 : 1930 Admission Diagnosis: Attending: JOVANI EL Current LOS: 1 Anticipated DC Date: 12-30-2018 Planned Disposition: Intermediate Facility Primary Insurance: MEDICARE A & B Discharge Planning Comments: VJ met with patient and her daughter, Sherry Fairbanks regarding discharge planning. Patient and her daughter report that the patient is in such pain with movement that she is not able to move or complete any adl's. Sherry reports that they want the patient to go to [facility] and they will self pay for the care at [facility]. VJ has spoke to Nayeli with [facility] who has requested the Sherry be at their facility at 8:30 in the morning to make the arrangements. The patient is adamant that she is not able to participate in therapy and furthermore she has not had 3 midnights in the past 30 days to qualify for skilled rehab. VJ has faxed Nayeli the information she requested to [phone]. Both patient and Sherry are aware and understand that the patient will have to private pay for her stay at [facility]. Chief Clinical Dietitian: Soco Trevino RN, [facility] External Providers External Provider: [facility] Next Contact Date: Service Request Date: Service Type: Resolution: Reviewer: Comments: Last DP export: 12/29/18 2:45 p Patient Name: RUSS FAIRBANKS Page 01201 at 1600 All edits/amendments must be made on the electronic document DICTATION DATE: 12/29/181558 BAKED GOODS STOCK CLERK: JOHN PAUL 12/29/181558 RPT#: [id number] DC DATE: STATUS: ADM IN [facility] [address] [place] [address] END OF REPORT
--- NOTE | 2018-12-29 16:06 | MORECARE ---
CASE MANAGEMENT DISCHARGE SUMMARY PATIENT: RUSS FAIRBANKS UNIT: [id number] ADM DATE: 12/29/18 AGE: 88 : 29 SEX: F ROOM/BED: D.2220 AUTHOR: ISAMRA,DOC PHYSICIAN: REFERRING PHYSICIAN: JOVANI EL MD DATE OF SERVICE: 12/29/18 Discharge Plan Patient Name: RUSS FAIRBANKS Facility: [facility]:[place] : 1930 Planned Disposition: Mcfp Facility Anticipated Discharge Date: 12/30/18 Discharge Date: Expected LOS: 1 Initial Reviewer: [email or web address] Initial Review Date: 12/29/2018 Generated: 12/29/18 5:06 pm DCP- Discharge Planning Updated by [email or web address]: Soco Trevino on 12/29/18 3:[address] Patient Name: RUSS FAIRBANKS Admission Status: ER Accout number: [id number] Admission Date: 12-29-2018 : 1930 Admission Diagnosis: Attending: JOVANI EL Current LOS: 1 Anticipated DC Date: 12-30-2018 Planned Disposition: Mcfp Facility Primary Insurance: MEDICARE A & B Discharge Planning Comments: CM met with patient and her daughter, Sherry Fairbanks regarding discharge planning. Patient and her daughter report that the patient is in such pain with movement that she is not able to move or complete any adl's. Sherry reports that they want the patient to go to [facility] and they will self pay for the care at [facility]. VJ has spoke to Nayeli with [facility] who has requested the Sherry be at their facility at 8:30 in the morning to make the arrangements. The patient is adamant that she is not able to participate in therapy and furthermore she has not had 3 midnights in the past 30 days to qualify for skilled rehab. VJ has faxed Nayeli the information she requested to [phone]. Both patient and Sherry are aware and understand that the patient will have to private pay for her stay at [facility]. Compound Coating Machine Offbearer: Soco Trevino RN, CCM Appended by Soco Trevino on 12/29/2018 16:01 CDT: YUNIEL presented,explained, and signed by patient's daughter for [facility]. Copy placed on chart and copy given to patient's daughter. Last DP export: 12/29/18 2:59 p Patient Name: RUSS FAIRBANKS Page 45997 at 1606 All edits/amendments must be made on the electronic document DICTATION DATE: 12/29/181604 WAREHOUSE SPECIALIST: JOHN PAUL 12/29/181604 RPT#: [id number] DC DATE: STATUS: ADM IN [facility] [address] [place] [address] END OF REPORT
[2018-12-29 16:15] VITALS: BP 119/63; Ht 162.6 cm; Wt 74.8 kg
--- NOTE | 2018-12-29 22:00 | NUR ---
PT A&O X 4, HARD OF HEARING, USES A COCHLEAR IMPLANT. REPORTS PAIN 7-8/10. EXACERBATED BY MOVEMENT/DEEP BREATHING.
[2018-12-30 01:43] VITALS: BP 133/44
--- NOTE | 2018-12-30 05:28 | NUR ---
I have reviewed this patient and I concur with the Shift Assessment completed by the Licensed Practical Nurse today this shift.
[2018-12-30 05:36] VITALS: BP 140/75
--- NOTE | 2018-12-30 06:30 | NUR ---
PT HAS NOT VOIDED THROUGHOUT NIGHT. BLADDER SCANNED. 471ML IN BLADDER. PT DENIED URGE TO VOID, BUT STATED SHE WOULD TRY THE BEDPAN. VOIDED 300ML CLEAR, YELLOW, URINE.
--- NOTE | 2018-12-30 07:45 | NUR ---
REPORT RECIEVED ASSUMED CARE. PATIENT IN BED WITH IV INTACT. NO COMPLAINTS OR SIGNS OF DISTRESS. CALL LIGHT WITHIN REACH.
[2018-12-30 09:10] VITALS: BP 145/69
[2018-12-30] MEDS ORDERED: HYDROCODON-ACE1 EAC7 PO (11:09)
[2018-12-30 11:19] LABS: BASOPHILS 0.1 % (0-2); EOSINOPHILS 2.5 % (0-7); HEMOGLOBIN 10.9 g/dL (12-16); IMMATURE GRANULOCYTES 0.3 % (0-5); LYMPHOCYTES 18.1 % (15-50); MCH 27.4 pg (26.0-34.0); MCHC 31.1 g/dL (31.0-37.0); MCV 87.9 fL (80.0-100.0); MEAN PLATELET VOLUME 10.2 fL (7.4-10.4); MONOCYTES 10.4 % (2-11); NEUTROPHILS 68.6 % (40-80); PLATELET COUNT 186 10x3/uL (130-400); RBC 3.98 10x6/uL (4.00-5.40); RDW 16.7 % (11.5-14.5); WBC 7.6 10x3/uL (4.8-10.8)
[2018-12-30 11:20] LABS: ALBUMIN 3.1 g/dL (3.4-5.0); ANION GAP 8.1 mmol/L (8-16); BILIRUBIN - TOTAL 0.43 mg/dL (0.2-1.3); CALCIUM 9.4 mg/dL (8.5-10.1); CARBON DIOXIDE 28.3 mmol/L (21.0-32.0); CREATININE - SERUM 1.2 mg/dL (0.6-1.3); POTASSIUM - SERUM 3.4 mmol/L (3.5-5.1); PROTEIN - SERUM 6.2 g/dL (6.4-8.2)
--- NOTE | 2018-12-30 11:21 | MORECARE ---
CASE MANAGEMENT DISCHARGE SUMMARY PATIENT: RUSS FAIRBANKS UNIT: [id number] ADM DATE: 12/29/18 AGE: 88 : 29 SEX: F ROOM/BED: D.2220 AUTHOR: ISAMAR,DOC PHYSICIAN: REFERRING PHYSICIAN: JOVANI EL MD DATE OF SERVICE: 12/30/18 Discharge Plan Patient Name: RUSS FAIRBANKS Facility: [facility]:[place] : 1930 Planned Disposition: Retirement Facility Anticipated Discharge Date: 12/30/18 Discharge Date: Expected LOS: 1 Initial Reviewer: [email or web address] Initial Review Date: 12/29/2018 Generated: 12/30/18 12:21 pm Comments DCP- Discharge Planning Updated by [email or web address]: Therese Dorantes on 12/30/18 10:[address] Patient will be discharging to [facility] today, they will transport her and steel pickler times has been set for 1:45. cm to follow and assist as needed DCP- Discharge Planning Updated by [email or web address]: Soco Trevino on 12/29/18 3:[address] Patient Name: RUSS FAIRBANKS Admission Status: ER Accout number: [id number] Admission Date: 12-29-2018 : 1930 Admission Diagnosis: Attending: JOVANI EL Current LOS: 1 Anticipated DC Date: 12-30-2018 Planned Disposition: Retirement Facility Primary Insurance: MEDICARE A & B Discharge Planning Comments: VJ met with patient and her daughter, Sherry Fairbanks regarding discharge planning. Patient and her daughter report that the patient is in such pain with movement that she is not able to move or complete any adl's. Sherry reports that they want the patient to go to [facility] and they will self pay for the care at [facility]. VJ has spoke to Nayeli with [facility] who has requested the Sherry be at their facility at 8:30 in the morning to make the arrangements. The patient is adamant that she is not able to participate in therapy and furthermore she has not had 3 midnights in the past 30 days to qualify for skilled rehab. VJ has faxed Nayeli the information she requested to [phone]. Both patient and Sherry are aware and understand that the patient will have to private pay for her stay at [facility]. Plate Washer: Soco Trevino RN, CCM Appended by Soco Trevino on 12/29/2018 16:01 CDT: YUNIEL presented,explained, and signed by patient's daughter for [facility]. Copy placed on chart and copy given to patient's daughter. Last DP export: 12/29/18 3:06 p Patient Name: RUSS FAIRBANKS Page [id number] at 1121 All edits/amendments must be made on the electronic document DICTATION DATE: 12/30/18 112 BARGE WORKER: JOHN PAUL 12/30/18 112 RPT#: [id number] DC DATE: STATUS: ADM IN [facility] [address] [place] [address] END OF REPORT
--- NOTE | 2018-12-30 13:00 | NUR ---
REPORT CALLED TO MARY GUTIERREZ [facility].
--- NOTE | 2018-12-30 13:30 | NUR ---
GAVE PATIENT SCHEDULED MEDS AND MOISÉS NMED AT THIS TIME. WAS TOLD BY DR. LEIGH THAT PATIENT NO LONGER NEEDS TO WEAR IMMOBILIZER. NOTIFIED PATIENT AND DAUGHTER. PATIENT IV REMOVED WITH CATH TIP INTACT. CALL LIGHT WITHIN REACH.
[2018-12-30 13:33] VITALS: BP 103/60
--- NOTE | 2019-01-01 12:29 | MORECARE ---
CASE MANAGEMENT DISCHARGE SUMMARY PATIENT: RUSS FAIRBANKS UNIT: [id number] ADM DATE: 12/29/18 AGE: 88 : 29 SEX: F ROOM/BED: D.2220 AUTHOR: ISAMAR,DOC PHYSICIAN: REFERRING PHYSICIAN: JOVANI EL MD DATE OF SERVICE: 01/01/19 Discharge Plan Patient Name: RUSS FAIRBANKS Facility: [facility]:[place] : 1930 Planned Disposition: Senior Living Facility Anticipated Discharge Date: 12/30/18 Discharge Date: 12/30/2018 Expected LOS: 1 Initial Reviewer: [email or web address] Initial Review Date: 12/29/2018 Generated: 01/01/19 1:29 pm Comments DCP- Discharge Planning Updated by [email or web address]: Therese Dorantes on 12/30/18 10:[address] Patient will be discharging to [facility] today, 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 cm to follow and assist as needed DCP- Discharge Planning Updated by [email or web address]: Soco Trevino on 12/29/18 3:[address] Patient Name: RUSS FAIRBANKS Admission Status: ER Accout number: [id number] Admission Date: 12-29-2018 : 1930 Admission Diagnosis: Attending: JOVANI EL Current LOS: 1 Anticipated DC Date: 12-30-2018 Planned Disposition: Senior Living Facility Primary Insurance: MEDICARE A & B Discharge Planning Comments: VJ met with patient and her daughter, Sherry Fairbanks regarding discharge planning. Patient and her daughter report that the patient is in such pain with movement that she is not able to move or complete any adl's. Sherry reports that they want the patient to go to [facility] and they will self pay for the care at [facility]. VJ has spoke to Nayeli with [facility] who has requested the Sherry be at their facility at 8:30 in the morning to make the arrangements. The patient is adamant that she is not able to participate in therapy and furthermore she has not had 3 midnights in the past 30 days to qualify for skilled rehab. VJ has faxed Nayeli the information she requested to [phone]. Both patient and Sherry are aware and understand that the patient will have to private pay for her stay at [facility]. Pattern Marking Supervisor: Soco Trevino RN, CCM Appended by Soco Trevino on 12/29/2018 16:01 CDT: YUNIEL presented,explained, and signed by patient's daughter for [facility]. Copy placed on chart and copy given to patient's daughter. Last DP export: 12/30/18 10:21 a Patient Name: RUSS FAIRBANKS Page [id number] at 1229 All edits/amendments must be made on the electronic document DICTATION DATE: 01/01/191227 PLASTIC SURGERY MANAGER: JOHN PAUL 01[birth year]01[birth year] RPT#: [id number] DC DATE:12/30/18 STATUS: DIS IN [facility] [address] [place] [address] END OF REPORT
== END 2018-12-30 14:05 ==
LOC: D.ER 11:01 → D.EDHOLD 15:06 → OBSVTIME 15:09 → D.MS 15:14
PROVIDERS: Emergency Medicine; ADMIT Internal Medicine Nephrology; ATTEND Internal Medicine Nephrology
DX: S22.31XA Fracture of one rib, right side, initial encounter for closed fracture (principal); S30.1XXA Contusion of abdominal wall, initial encounter; S30.0XXA Contusion of lower back and pelvis, initial encounter; W19.XXXA Unspecified fall, initial encounter; J96.21 Acute and chronic respiratory failure with hypoxia; I11.0 Hypertensive heart disease with heart failure; I50.9 Heart failure, unspecified; Z95.0 Presence of cardiac pacemaker; I25.10 Atherosclerotic heart disease of native coronary artery without angina pectoris; I48.91 Unspecified atrial fibrillation; J44.9 Chronic obstructive pulmonary disease, unspecified; K21.9 Gastro-esophageal reflux disease without esophagitis; F41.8 Other specified anxiety disorders; K59.09 Other constipation

== ENCOUNTER → 2019-02-25 22:32 | Outpatient (CLI) | payer MEDICARE, OTHER ==
[~2019-02-25 22:32] MED LIST changes: +HYDROCHLOROTHIA25 MG PO
[2019-02-25 23:42] LABS: CALC OSMOLALITY 295 mosm/kg (275-300); CALCIUM 9.7 mg/dL (8.5-10.1); CARBON DIOXIDE 27.5 mmol/L (21.0-32.0); CHLORIDE - SERUM 103 mmol/L (98-107); CREATININE - SERUM 1.6 mg/dL (0.6-1.3); POTASSIUM - SERUM 3.9 mmol/L (3.5-5.1); SODIUM 146 mmol/L (136-145); UREA NITROGEN 37 mg/dL (7-18); eGFR NON AFRICAN AMERICAN 32 mL/min (90-120)
== END | disposition home or self-care (01) ==
LOC: D.LABREF 22:32
PROVIDERS: ATTEND Family Medicine
DX: E88.9 Metabolic disorder, unspecified (principal)